=== PATIENT | female | born 1980 | race Caucasian/White ===

== ENCOUNTER 2016-11-19 22:30 | Emergency (ER) | payer MEDICAID ==
[2016-11-19 23:11] VITALS: BP 111/83
[2016-11-19] MEDS ORDERED: Ibuprofen 600 MG Tab PO ONE (23:19)
--- NOTE | 2016-11-19 23:54 | EDM.PDOC ---
ED HPI GENERAL MEDICAL PROBLEM - General Chief Complaint: Upper Extremity Injury/Pain Stated Complaint: INJURED L WRIST Time Seen by Provider: 11/19/16 23:10 Source of Information: Reports: Patient, Family History Limitations: Reports: No Limitations - History of Present Illness INITIAL COMMENTS - FREE TEXT/NARRATIVE: 36 y.o.w.f came to the ed after she fell at her left hand, complaining or left wrist pain, no other acute medical issues at this time. Onset: Today Onset Date: 11/19/16 Onset Time: 16:00 Duration: Hour(s): Location: Reports: Upper Extremity, Left Quality: Reports: Burning, Dull Severity: Mild Improves with: Reports: Cold Therapy, Immobilization Worsens with: Reports: Movement Associated Symptoms: Reports: No Other Symptoms Right Wrist Pain Score (Numeric/FACES): 7 - Related Data Allergies Allergy/AdvReac Type Severity Reaction Status Date / Time Penicillins Allergy Difficulty Verified 11/19/16 23:05 Breathing Home Meds: Home Meds ALPRAZolam [Alprazolam] 0.5 mg PO DAILY PRN 02/09/16 [History] DULoxetine HCl [Cymbalta] 120 mg PO DAILY 02/09/16 [History] Sucralfate [Sucralfate] 1 gm PO QID 04/02/16 [History] Pantoprazole [Protonix] 40 mg PO BIDAC #100 tab.cr 05/01/16 [Rx] Amitriptyline [Elavil] 25 mg PO BEDTIME #24 tab 06/05/16 [Rx] Ondansetron [Zofran ODT] 4 mg PO Q6H PRN #20 tab.dis 06/05/16 [Rx] Cyanocobalamin (Vitamin B12) [Vitamin B12] 1,000 mcg PO DAILY 06/09/16 [History] Ferrous Sulfate [Iron] 60 mg PO DAILY 06/09/16 [History] Past Medical History - Past Health History Medical/Surgical History: Denies Medical/Surgical History 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 Psychiatric History: Reports: Anxiety Hematologic History: Reports: B12 Deficiency, Iron Deficiency - Past Surgical History HEENT Surgical History: Reports: Adenoidectomy, Tonsillectomy Other HEENT Surgeries/Procedures: 1995 GI Surgical History: Reports: Appendectomy, Bariatric Procedure, Cholecystectomy Female Surgical History: Reports: Hysterectomy, Oophorectomy, Salpingo- Oophorectomy Oncologic Surgical History: Reports: Other (See Below) Social & Family History - Family History Family Medical History: Noncontributory - Tobacco Use Smoking Status *Q: Current Every Day Smoker Years of Tobacco use: 20 Packs/Tins Daily: 1 Second Hand Smoke Exposure: No - Caffeine Use Caffeine Use: Reports: Coffee - Alcohol Use Days Per Week of Alcohol Use: 0 - Recreational Drug Use Recreational Drug Use: No Drug Use in Last 12 Months: Yes Review of Systems - Review of Systems Review Of Systems: See Below Constitutional: Reports: No Symptoms Eyes: Reports: No Symptoms Ears: Reports: No Symptoms Nose: Reports: No Symptoms Mouth/Throat: Reports: No Symptoms Respiratory: Reports: No Symptoms Cardiovascular: Reports: No Symptoms GI/Abdominal: Reports: No Symptoms Genitourinary: Reports: No Symptoms Musculoskeletal: Reports: No Symptoms Skin: Reports: No Symptoms Neurological: Reports: No Symptoms Psychiatric: Reports: No Symptoms ED EXAM, GENERAL - Physical Exam Exam: See Below Exam Limited By: No Limitations General Appearance: Alert, WD/WN, No Apparent Distress Eye Exam: Bilateral Eye: Normal Inspection Ears: Normal External Exam Ear Exam: Bilateral Ear: Auricle Normal Nose: Normal Inspection, Normal Mucosa Throat/Mouth: Normal Inspection, Normal Lips Head: Atraumatic, Normocephalic Neck: Normal Inspection, Supple, Non-Tender, Full Range of Motion Respiratory/Chest: No Respiratory Distress, Lungs Clear, Normal Breath Sounds Cardiovascular: Normal Peripheral Pulses, Regular Rate, Rhythm, No Edema, No Gallop Peripheral Pulses: 1+: Femoral (L), Femoral (R) GI/Abdominal: Normal Bowel Sounds, Soft, Non-Tender (Female) Exam: Deferred Rectal (Female) Exam: Deferred Back Exam: Normal Inspection, Full Range of Motion Extremities: Other (left wrist tenderness, neg snuff box sign.) Neurological: Alert, Oriented, CN II-XII Intact, Normal Cognition, Normal Gait Psychiatric: Normal Affect, Normal Mood Skin Exam: Warm, Dry, Intact, Normal Color Lymphatic: No Adenopathy Course - Vital Signs Text/Narrative:: 36 y.o.w.f came to the ed after she fell at her left hand, complaining or left wrist pain, no other acute medical issues at this time. PE: left wrist discomfort, FROM Imaging: Left wrist neg Impression: Left wist sprain. Tx: Motrin, Velcro splint Reexam: improved Plan: D/C home with instructions. Last Recorded V/S: Last Vital Signs Temp 36.7 C 11/19/16 23:10 Pulse 88 11/19/16 23:10 Resp 16 11/19/16 23:10 BP 111/83 11/19/16 23:10 Pulse Ox 99 11/19/16 23:10 - Orders/Labs/Meds Orders: Active Orders 24 hr Category Date Time Status Cooling Warming Measures [RC] ASDIRECTED Care 11/19/16 23:21 Active Wrist Comp Min 3V Lt [CR] Stat Exams 11/19/16 23:19 Taken Ice Bag [Ice Therapy] [OM.PC] Routine Oth 11/19/16 23:21 Ordered Meds: Medications Discontinued Medications Generic Name Dose Route Start Last Admin Trade Name Freq PRN Reason Stop Dose Admin Ibuprofen 600 mg 11/19/16 23:19 11/19/16 23:37 Motrin PO 11/19/16 23:20 600 mg ONETIME ONE Administration Departure - Departure Time of Disposition: 23:54 Disposition: Home, Self-Care 01 Condition: Good Clinical Impression: Left wrist sprain Qualifiers: Encounter type: initial encounter Qualified Code(s): S63.502A - Unspecified sprain of left wrist, initial encounter - Discharge Information Instructions: Wrist Pain Referrals: PCP,Not In Area [Primary Care Provider] - Forms: ED Department Discharge Additional Instructions: Please apply ice to the affected area, please take motrin for pain, please wear Velcro splint fopr comfort. Please f/u please come back to the ed if your symptoms get worse acutely. - My Orders Last 24 Hours: My Active Orders 11/19/16 23:19 Wrist Comp Min 3V Lt [CR] Stat 11/19/16 23:21 Cooling Warming Measures [RC] ASDIRECTED Ice Bag [Ice Therapy] [OM.PC] Routine - Assessment/Plan Last 24 Hours: My Active Orders 11/19/16 23:19 Wrist Comp Min 3V Lt [CR] Stat 11/19/16 23:21 Cooling Warming Measures [RC] ASDIRECTED Ice Bag [Ice Therapy] [OM.PC] Routine
--- NOTE | 2016-11-21 08:56 | CR ---
INDICATION: Fell on stairs. LEFT WRIST: Three views of the left wrist revealed no evidence of an acute fracture, dislocation, or other significant bone or joint abnormality. [facility]
== END 2016-11-20 | disposition home or self-care (01) ==
LOC: FB.ED 22:30
DX: S63.502A Unspecified sprain of left wrist, initial encounter (principal); F41.9 Anxiety disorder, unspecified; F17.210 Nicotine dependence, cigarettes, uncomplicated; Z88.0 Allergy status to penicillin; Z79.899 Other long term (current) drug therapy; W19.XXXA Unspecified fall, initial encounter
CPT/HCPCS: 73110; 99283; A9270

== ENCOUNTER 2016-12-10 16:26 | Emergency (ER) | payer MEDICAID ==
[2016-12-10] MEDS ORDERED: Ketorolac 60 MG/2 ML SDV IM ONE (17:05)
[2016-12-10] MEDS ORDERED: hydrOXYzine HCl 50 MG/ML SDV IM ONE (17:06)
[2016-12-10] MEDS ORDERED: Sodium Chloride 0.9% 10 ML Syringe FLUSH PRN (17:22)
[2016-12-10] MEDS ORDERED: Iopamidol 755 Mg/ML 100 ML Bottle IV SCH (17:30)
[2016-12-10 18:32] VITALS: BP 109/69
--- NOTE | 2016-12-11 03:13 | ER ---
DATE SEEN: 12/10/2016 CHIEF COMPLAINT: Abdominal pain. HISTORY OF PRESENT ILLNESS: This is a 36-year-old female from [place], complaining of pain in the right upper quadrant for 3 days. The pain is sharp, it radiates to the back. Nothing seems to improve it. Food makes it worse. It is a dull pain at times. REVIEW OF SYSTEMS: Mild nausea. Denies any diarrhea or vomiting. No fever or chest pain. PAST MEDICAL HISTORY: Gastric bypass, status post cholecystectomy, appendectomy. ALLERGIES: Penicillins. MEDICATIONS: Reviewed. PHYSICAL EXAMINATION: GENERAL: She is well hydrated. VITAL SIGNS: Pulse 112, temperature 97.2, and blood pressure is normal. ENT: Negative. NECK: Supple. CARDIOVASCULAR: Normal. ABDOMEN: Soft, with tenderness right upper quadrant and also in the right costovertebral angle area. LABORATORY DATA: Sodium was 134, chloride 98, electrolytes and liver function tests were negative. Amylase was 49. UA was unremarkable. CT abdomen was negative. IMPRESSION: Abdominal pain of uncertain etiology. PLAN: Symptomatic treatment, ketorolac and Vistaril. The patient was discharged to see her physician next week. TIME SEEN: 1730 hours. /[id number] GEOFF/SUSANNA
== END 2016-12-10 18:31 | disposition home or self-care (01) ==
LOC: FB.ED 16:26
DX: R10.11 Right upper quadrant pain (principal); Z88.0 Allergy status to penicillin; Z90.49 Acquired absence of other specified parts of digestive tract; Z98.890 Other specified postprocedural states
CPT/HCPCS: 36415; 74177; 80053; 81001; 82150; 85025; 96372; 99284; J1885; J3410; J7050; Q9967

== ENCOUNTER 2016-12-11 04:55 | Emergency (ER) | payer MEDICAID ==
[2016-12-11] MEDS ORDERED: HYDROmorphone 2 MG/ML SDV IM ONE (05:22)
[2016-12-11 05:23] VITALS: BP 111/78
--- NOTE | 2016-12-12 09:25 | ER ---
DATE SEEN: 12/11/2016 REASON FOR VISIT: Right upper quadrant abdominal pain. HISTORY OF PRESENT ILLNESS: A 36-year-old female with pain in the right upper quadrant and epigastrium. She was here earlier today because of the same reason. Please see my note from 12/10/2016. She returns at 5 in the morning on 12/11/2016. Pain has been worsened and radiates to towards back, but no nausea or vomiting, no constipation. REVIEW OF SYSTEMS: No chest pain, fever, or chills. ALLERGIES: Penicillin. PHYSICAL EXAMINATION: VITAL SIGNS: Afebrile, blood pressure is normal, pulse 80. ABDOMEN: Nondistended. There is tenderness in the epigastrium and right upper quadrant. MENTAL STATUS: Anxious. LABORATORY DATA: None. IMPRESSION: Abdominal pain of undetermined etiology. PLAN: Dilaudid 2 mg IM. I advised her to see her PCP later today or if symptoms get worse to drive up to the ER in [place]. TIME SEEN: 0530 hours. /[id number] GEOFF/SUSANNA
== END 2016-12-11 05:45 | disposition home or self-care (01) ==
LOC: FB.ED 04:55
DX: R10.11 Right upper quadrant pain (principal); Z88.0 Allergy status to penicillin
CPT/HCPCS: 96372; 99284; J1170

== ENCOUNTER 2017-02-17 21:04 | Emergency (ER) | payer MEDICAID ==
[2017-02-17] MEDS ORDERED: Ketorolac 60 MG/2 ML SDV IM ONE (21:23)
--- NOTE | 2017-02-17 22:07 | EDM.PDOC ---
ED HPI GENERAL MEDICAL PROBLEM - General Chief Complaint: Back Pain or Injury Stated Complaint: LEFT SIDE BACK PAIN Time Seen by Provider: 02/17/17 21:06 Source of Information: Reports: Patient, Family History Limitations: Reports: No Limitations - History of Present Illness INITIAL COMMENTS - FREE TEXT/NARRATIVE: 36 years old w f came to the ed due to pain at her left flank for 3 days, starting gradually, No trauma, pain is radiating to her left groin. Pt denied a h/o kidneystone. No N/V/D no trauma. No other acute medical issues. 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 L flank region Pain Score (Numeric/FACES): 8 - Related Data Allergies Allergy/AdvReac Type Severity Reaction Status Date / Time Penicillins Allergy Difficulty Verified 12/11/16 05:20 Breathing Home Meds: Home Meds DULoxetine HCl [Cymbalta] 120 mg PO DAILY 02/09/16 [History] Sucralfate [Sucralfate] 1 gm PO QID 04/02/16 [History] Amitriptyline [Elavil] 25 mg PO BEDTIME #24 tab 06/05/16 [Rx] Past Medical History - Past Health History Medical/Surgical History: Denies 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, Psychiatric History: Reports: Anxiety Hematologic History: Reports: B12 Deficiency, Iron Deficiency - Past Surgical History HEENT Surgical History: Reports: Adenoidectomy, Tonsillectomy Other HEENT Surgeries/Procedures: 1995 GI Surgical History: Reports: Appendectomy, Bariatric Procedure, Cholecystectomy Female Surgical History: Reports: Hysterectomy, Oophorectomy, Salpingo- Oophorectomy Oncologic Surgical History: Reports: Other (See Below) Social & Family History - Family History Family Medical History: Noncontributory - Tobacco Use Smoking Status *Q: Current Every Day Smoker Years of Tobacco use: 20 Packs/Tins Daily: 1 Second Hand Smoke Exposure: No - Caffeine Use Caffeine Use: Reports: Coffee, Soda - Alcohol Use Days Per Week of Alcohol Use: 0 - Recreational Drug Use Recreational Drug Use: No Drug Use in Last 12 Months: Yes ED ROS GENERAL - Review of Systems Review Of Systems: See Below Constitutional: Reports: No Symptoms HEENT: Reports: No Symptoms Respiratory: Reports: No Symptoms Cardiovascular: Reports: No Symptoms Endocrine: Reports: No Symptoms GI/Abdominal: Reports: Abdominal Pain : Reports: No Symptoms Musculoskeletal: Reports: No Symptoms Skin: Reports: No Symptoms Neurological: Reports: No Symptoms Psychiatric: Reports: No Symptoms Hematologic/Lymphatic: Reports: No Symptoms Immunologic: Reports: No Symptoms ED EXAM,LOWER BACK PAIN/INJURY - Physical Exam Exam: See Below Exam Limited By: No Limitations General Appearance: Alert, WD/WN, Mild Distress Eye Exam: Bilateral Eye: Normal Inspection Ears: Normal External Exam Nose: Normal Inspection Throat/Mouth: Normal Inspection Head: Atraumatic, Normocephalic Neck: Normal Inspection, Supple, Non-Tender Respiratory/Chest: No Respiratory Distress, Lungs Clear Cardiovascular: Normal Peripheral Pulses, Regular Rate, Rhythm GI/Abdominal: Tender (left flank) (Female) Exam: Deferred Rectal (Female) Exam: Deferred Back Exam: Normal Inspection Extremities: Normal Inspection, Normal Range of Motion Neurological: Alert, Normal Mood/Affect, Normal Dorsiflexion, CN II-XII Intact Psychiatric: Normal Affect, Normal Mood Skin Exam: Warm, Dry, Intact Lymphatic: No Adenopathy Course - Vital Signs Text/Narrative:: 36 years old w f came to the ed due to pain at her left flank for 3 days, starting gradually, No trauma, pain is radiating to her left groin. Pt denied a h/o kidneystone. No N/V/D no trauma. No other acute medical issues. PE: Left flank pain Labs: UA Micr. Hematuria Na 133. K. 3.7 CBC was WNL Imaging: No urolithiasis. no hydro, focal gastritis, mesenteric lymphnodes ( nonspecific) Impression: Back pain Tx: Toradol, Vidodin Reexam; Improved Plan: D/C with instructions Last Recorded V/S: Last Vital Signs Temp 36.7 C 02/17/17 21:06 Pulse 91 02/17/17 21:06 Resp 18 02/17/17 23:00 BP 113/75 02/17/17 23:00 Pulse Ox 100 02/17/17 23:00 - Orders/Labs/Meds Orders: Active Orders 24 hr Category Date Time Status Abdomen Pelvis wo Cont [CT] Stat Exams 02/17/17 21:23 Taken Labs: Laboratory Tests 02/17/17 02/17/17 02/17/17 Range/Units 21:23 21:35 21:35 WBC 9.1 (4.5-12.0) X10-3/uL RBC 4.17 (3.23-5.20) x10(6)uL Hgb 12.9 (11.5-15.5) g/dL Hct 37.3 (30.0-51.3) % MCV 89.5 (80-96) fL MCH 30.8 (27.7-33.6) pg MCHC 34.5 (32.2-35.4) g/dL RDW 12.0 (11.5-15.5) % Plt Count 277 (125-369) X10(3)uL MPV 8.7 (7.4-10.4) fL Neut % (Auto) 57.8 (46-82) % Lymph % (Auto) 32.3 (13-37) % [place] % (Auto) 6.8 (4-12) % Eos % (Auto) 3 (1.0-5.0) % Baso % (Auto) 0 (0-2) % Neut # (Auto) 5.4 (1.6-8.3) # Lymph # (Auto) 2.9 (0.6-5.0) # [place] # (Auto) 0.6 (0.0-1.3) # Eos # (Auto) 0.2 (0.0-0.8) # Baso # (Auto) 0.0 (0.0-0.2) # Sodium 133 L (135-145) mmol/L Potassium 4.5 (3.5-5.3) mmol/L Chloride 97 L (100-110) mmol/L Carbon Dioxide 29 (23-29) mmol/L BUN 8 (5-20) mg/dL Creatinine 0.6 (0.6-1.3) mg/dL Est Cr Clr Drug Dosing 103.50 mL/min Estimated GFR (MDRD) > 60 (>60) BUN/Creatinine Ratio 13.3 (9-20) Glucose 96 (80-116) mg/dL Calcium 8.9 (8.6-10.2) mg/dL Urine Color Yellow (YELLOW) Urine Appearance Clear (CLEAR) Urine pH 7.0 H (5.0-6.5) Ur Specific [place] 1.005 L (1.010-1.025) Urine Protein Negative (NEGATIVE) mg/dL Urine Glucose (UA) Normal (NEGATIVE) mg/dL Urine Ketones Negative (NEGATIVE) mg/dL Urine Occult Blood Moderate H (NEGATIVE) Urine Nitrite Negative (NEGATIVE) Urine Bilirubin Negative (NEGATIVE) Urine Urobilinogen Normal (NEGATIVE) mg/dL Ur Leukocyte Esterase Negative (NEGATIVE) Urine RBC 0-5 (0) Urine WBC 0-5 (0) Ur Squamous Epith Cells Few H (NS,R,O) Urine Bacteria Few H (NS) Meds: Medications Discontinued Medications Generic Name Dose Route Start Last Admin Trade Name Freq PRN Reason Stop Dose Admin Hydrocodone Bitart/Acetaminophen 1 tab 02/17/17 22:48 02/17/17 22:56 [place] 325-5 Mg PO 02/17/17 22:49 1 tab ONETIME ONE Administration Ketorolac Tromethamine 60 mg 02/17/17 21:23 02/17/17 21:30 Toradol IM 02/17/17 21:24 60 mg ONETIME ONE Administration Departure - Departure Time of Disposition: 23:14 Disposition: Home, Self-Care 01 Condition: Good Clinical Impression: Back pain Qualifiers: Back pain location: low back pain Chronicity: unspecified Back pain laterality : left Sciatica presence: without sciatica Qualified Code(s): M54.5 - Low back pain - Discharge Information Instructions: Back Pain, Adult, [id number] Referrals: PCP,Not In Area [Primary Care Provider] - Forms: ED Department Discharge Additional Instructions: Please take motrin for mod pain and vicodin for severe pain. Please f/u. please come back if your symptoms get worse acutely - My Orders Last 24 Hours: My Active Orders 02/17/17 21:23 Abdomen Pelvis wo Cont [CT] Stat - Assessment/Plan Last 24 Hours: My Active Orders 02/17/17 21:23 Abdomen Pelvis wo Cont [CT] Stat
[2017-02-17] MEDS ORDERED: Acetaminophen/HYDROcodone 325-5 MG Tab PO ONE ×2 (22:48→23:17)
[2017-02-17 23:12] VITALS: BP 113/75
== END 2017-02-17 23:21 | disposition home or self-care (01) ==
LOC: FB.ED 21:04
DX: M54.5 Low back pain (principal); F17.210 Nicotine dependence, cigarettes, uncomplicated; F41.9 Anxiety disorder, unspecified; Z90.710 Acquired absence of both cervix and uterus; Z88.0 Allergy status to penicillin; Z79.899 Other long term (current) drug therapy; Z90.49 Acquired absence of other specified parts of digestive tract; Z90.89 Acquired absence of other organs
CPT/HCPCS: 36415; 74176; 80048; 81001; 85025; 96372; 99284; A9270; J1885

== ENCOUNTER 2017-03-11 13:39 | Emergency (ER) | payer MEDICAID ==
[2017-03-11] MEDS ORDERED: Ondansetron 4 MG/2 ML SDV IVPUSH ONE (14:51)
[2017-03-11] MEDS ORDERED: HYDROmorphone 2 MG/ML SDV IVPUSH ONE (14:51)
[2017-03-11] MEDS ORDERED: Sodium Chloride 0.9% 1,000 ML IV SCH (15:00)
[2017-03-11] MEDS ORDERED: Alum Hydroxide/Mag Hydroxide 15 ML, Lidocaine 2% 15 ML PO ONE ×2 (16:23)
[2017-03-11 17:27] VITALS: BP 120/68
--- NOTE | 2017-03-13 12:06 | ER ---
DATE SEEN: 03/11/2017 HISTORY OF PRESENT ILLNESS: The patient complains of severe abdominal pain. She is status post gastric bypass. She has been seen in the emergency room multiple times for abdominal pain. No etiology of the pain has been discovered. She has significant consequent weight loss with gastric bypass, but gained 75 pounds of it back. Complains of right-sided flank pain also. In 2016, she had a CAT scan of the abdomen that revealed an ulcer on the inferior aspect of the proximal Monroe-en-Y limb. She has had endoscopy on one occasion. As stated, "there is a little ulcer at that site." Previous cholecystectomy. She had been seen and followed by Dr. Olmos. Other previous surgery; T and A, appendectomy, Monroe-en-Y, candy-cane limb reconstruction 01/11/2016, MIGUEL-BSO for endometriosis at young age. The patient continues to smoke. Chronic depression, GERD, anxiety disorder, migraines, and nicotine dependence. FAMILY HISTORY: Myocardial infarction, fibromyalgia, autism, stroke, type 2 diabetes, and endometriosis. SOCIAL HISTORY: . Smoked, I believe she is no longer smoking. REVIEW OF SYSTEMS: HEENT: Denies compromised vision, sinusitis, sore throat, or cough. LUNGS: No tachypnea history. No shortness of breath. No dyspnea on exertion. CARDIAC: No chest pain. No irregularity of heartbeat. ABDOMEN: Nausea and abdominal pain without diarrhea. No back pain, arm pain, or jaw pain. No pancreatitis. She has previous documented gastric outlet stenosis and previous documented ulcer of her anastomosis line per Dr. Olmos. EXTREMITIES: Without edema. EMERGENCY DEPARTMENT COURSE: Etiology of the patient's pain is indeterminate. She was given 1 mg of Dilaudid IV. CAT scan was performed and no obstruction. The radiology report shows bypass changes, no violation of small or large bowel. Appendix is surgically absent. Multiple reactive mesenteric lymph nodes right lower quadrant, ill-defined micro nodules in the lung bases, multiple peripancreatic reactive lymph nodes, jack hepatis nodes. Gallbladder and bile duct are normal. LABORATORY FINDINGS: White count 6,200, PMNs 44, lymphocytes 46, monos 6, hemoglobin 12.9, and platelets 216,000. Normal complete metabolic panel. Urinalysis is normal. Toxicology is negative. ASSESSMENT: Etiology for the patient's pain is indeterminate, but perhaps has to do with the psyche and dynamics of the patient's gastric bypass and intermittent stress/tension, tethering of the vascular structures causing pain and ischemic changes; however, was not noted on the CT findings. 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 PLAN: No therapy. Reassured the patient. No pain medicine given to the patient. The patient dismissed to follow up with her doctor. My assumption that she may have a non-painful recurrence of ulcers at the anastomosis line and painful mesenteric adenitis. Gastroenterology may need to repeat endoscopy. In May, Franc Jamesgo, felt the intractable pain was not from the ulcer, so the etiology of the patient's pain is still indeterminate. /[id number] DALY/SUSANNA
== END 2017-03-11 16:30 | disposition home or self-care (01) ==
LOC: FB.ED 13:39
DX: I88.0 Nonspecific mesenteric lymphadenitis (principal); Z98.84 Bariatric surgery status; Z90.710 Acquired absence of both cervix and uterus; F17.210 Nicotine dependence, cigarettes, uncomplicated
CPT/HCPCS: 36415; 74176; 80053; 81001; 85025; 96361; 96374; 96375; 99284; A9270; J1170; J2405; J7040

== ENCOUNTER 2017-03-16 19:31 | Emergency (ER) | payer MEDICAID ==
[2017-03-16 20:13] VITALS: BP 99/73
[2017-03-16] MEDS ORDERED: Acetaminophen/HYDROcodone 325-10 MG Tab PO ONE (21:06)
--- NOTE | 2017-03-16 21:21 | EDM.PDOC ---
ED HPI GENERAL MEDICAL PROBLEM - General Chief Complaint: Lower Extremity Injury/Pain Stated Complaint: INJURED RT FT Time Seen by Provider: 03/16/17 20:35 Source of Information: Reports: Patient, Family History Limitations: Reports: No Limitations - History of Present Illness INITIAL COMMENTS - FREE TEXT/NARRATIVE: Patient is a 36 year old woman who tripped over a toy at her house at 14:30 this afternoon and she twisted and fell on her right foot. She has a bruise and pain on the outside of her foot over the 4th and 5th metatarsals. It hurts to walk on it and she wanted it x-rayed to make sure it is not broken. Onset: Today Onset Date: 03/16/17 Onset Time: 14:30 Duration: Hour(s): (5), Getting Worse Location: Reports: Lower Extremity, Right Quality: Reports: Ache, Throbbing Improves with: Reports: Immobilization Worsens with: Reports: Movement Context: Reports: Trauma Associated Symptoms: Reports: No Other Symptoms Treatments TRAVEL COTA: Reports: Acetaminophen, NSAIDS Right Feet Pain Score (Numeric/FACES): 8 - Related Data Allergies Allergy/AdvReac Type Severity Reaction Status Date / Time Penicillins Allergy Severe Difficulty Verified 03/16/17 20:06 Breathing Home Meds: Home Meds DULoxetine HCl [Cymbalta] 120 mg PO DAILY 02/09/16 [History] Sucralfate [Sucralfate] 1 gm PO QID 04/02/16 [History] Amitriptyline [Elavil] 25 mg PO BEDTIME #24 tab 06/05/16 [Rx] Past Medical History - Past Health History Medical/Surgical History: Denies Medical/Surgical History Gastrointestinal History: Reports: Cholelithiasis Genitourinary History: Reports: UTI, Recurrent 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, Musculoskeletal History: Reports: Fracture Other Musculoskeletal History: fx R wrist, fx L foot Psychiatric History: Reports: Anxiety Endocrine/Metabolic History: Reports: Obesity/BMI 30+ Hematologic History: Reports: B12 Deficiency, Iron Deficiency - Infectious Disease History Infectious Disease History: Reports: Chicken Pox - Past Surgical History HEENT Surgical History: Reports: Adenoidectomy, Tonsillectomy Other HEENT Surgeries/Procedures: 1995 GI Surgical History: Reports: Appendectomy, Bariatric Procedure, Cholecystectomy Female Surgical History: Reports: Hysterectomy, Oophorectomy, Salpingo- Oophorectomy Oncologic Surgical History: Reports: Other (See Below) Social & Family History - Family History Family Medical History: Noncontributory - Tobacco Use Smoking Status *Q: Current Every Day Smoker Years of Tobacco use: 20 Packs/Tins Daily: 1 Second Hand Smoke Exposure: No - Caffeine Use Caffeine Use: Reports: Coffee - Alcohol Use Days Per Week of Alcohol Use: 0 - Recreational Drug Use Recreational Drug Use: No Drug Use in Last 12 Months: Yes Review of Systems - Review of Systems Review Of Systems: ROS reveals no pertinent complaints other than HPI. ED EXAM, GENERAL - Physical Exam Exam: See Below Exam Limited By: No Limitations General Appearance: Alert, WD/WN, No Apparent Distress Head: Atraumatic, Normocephalic Neck: Normal Inspection, Supple, Non-Tender, Full Range of Motion Respiratory/Chest: No Respiratory Distress Cardiovascular: Normal Peripheral Pulses, Regular Rate, Rhythm, No Edema, No Gallop, No JVD, No Murmur, No Rub Peripheral Pulses: 4+: Posterior Tibial (L), Posterior Tibial (R), Dorsalis Pedis (L), Dorsalis Pedis (R) GI/Abdominal: Normal Bowel Sounds, Soft, Non-Tender, No Organomegaly, No Distention, No Abnormal Bruit, No Mass Extremities: Limited Range of Motion (Right foot due to pain.), Other (Bruise and contusion with pain on palpation on the right foot.) Neurological: Alert, Oriented, CN II-XII Intact, Normal Cognition, Normal Gait, Normal Reflexes, No Motor/Sensory Deficits Psychiatric: Normal Affect, Normal Mood Skin Exam: Warm, Dry, Intact, Normal Color, No Rash Lymphatic: No Adenopathy Course - Vital Signs Text/Narrative:: Uneventful ED course. She had a negative foot x-ray for fracture by my initial reading. She was placed in a hard cast shoe and was given crutches. She will take Ibuprofen 800 mg and Tylenol 500 mg together every 6 hours, she will rest and elevate the right foot and ice it 15 minutes tid. She will see her PCP in 3 days if not improving or if getting more painful. Last Recorded V/S: Last Vital Signs Temp 36.9 C 03/16/17 20:07 Pulse 96 03/16/17 20:07 Resp 14 03/16/17 20:07 BP 99/73 10/20/17 20:07 Pulse Ox 100 03/16/17 20:07 - Orders/Labs/Meds Orders: Active Orders 24 hr Category Date Time Status Foot Comp Min 3V Rt [CR] Stat Exams 03/16/17 20:25 Taken Meds: Medications Discontinued Medications Generic Name Dose Route Start Last Admin Trade Name Ricarda PRN Reason Stop Dose Admin Hydrocodone Bitart/Acetaminophen 1 tab 03/16/17 21:06 03/16/17 21:11 [place] 325-10 Mg PO 03/16/17 21:07 1 tab ONETIME ONE Administration Departure - Departure Time of Disposition: 22:21 Disposition: Home, Self-Care 01 Preliminary Cause of *Q: Sepsis & Multi System Organ Failure Clinical Impression: Contusion of foot, right - Discharge Information Instructions: Crutch Use, [id number], Foot Sprain, Contusion, [id number] Referrals: PCP,Not In Area [Primary Care Provider] - Forms: ED Department Discharge Care Plan Goals: see on Sunday - My Orders Last 24 Hours: My Active Orders 03/16/17 20:25 Foot Comp Min 3V Rt [CR] Stat - Assessment/Plan Last 24 Hours: My Active Orders 03/16/17 20:25 Foot Comp Min 3V Rt [CR] Stat
--- NOTE | 2017-03-19 13:42 | CR ---
INDICATION: Right foot pain laterally, twisted her foot today. RIGHT FOOT: Three views of the right foot revealed no evidence of a fracture, dislocation, or other significant bone or joint abnormality. VIDYA
== END 2017-03-16 22:01 | disposition home or self-care (01) ==
LOC: FB.ED 19:31
DX: S90.31XA Contusion of right foot, initial encounter (principal); Z88.0 Allergy status to penicillin; F17.210 Nicotine dependence, cigarettes, uncomplicated; Z79.899 Other long term (current) drug therapy; W01.198A Fall on same level from slipping, tripping and stumbling with subsequent striking against other object, initial encounter
CPT/HCPCS: 73630; 99283; A9270

== ENCOUNTER 2017-04-06 17:28 | Emergency (ER) | payer MEDICAID ==
[2017-04-06] MEDS ORDERED: Sodium Chloride 0.9% 10 ML Syringe FLUSH PRN (18:23)
[2017-04-06] MEDS ORDERED: Ondansetron 4 MG/2 ML SDV IVPUSH ONE (18:29)
--- NOTE | 2017-04-06 18:29 | EDM.PDOC ---
ED HPI GENERAL MEDICAL PROBLEM - General Chief Complaint: Abdominal Pain Stated Complaint: STOMACH PAIN Time Seen by Provider: 04/06/17 18:15 Source of Information: Reports: Patient, Old Records History Limitations: Reports: No Limitations - History of Present Illness INITIAL COMMENTS - FREE TEXT/NARRATIVE: Charisse Paz returns to [facility] ED with ongoing issues with upper abdominal pain, nausea, and daily emesis of gastric appearing fluids. Pains are intermittent, do not radiate to the back or pelvis, and sometimes appear retrosternal. She has been seen within the past month for similar sxs, and diagnostic imaging has not confirmed a diagnosis. She has a referral pending to the [facility]ariat[facility] Clinic in [place], [place]. She has been compliant with meds including Carafate, but continues to smoke cigarettes. Upper abdominal pain Pain Score (Numeric/FACES): 8 - Related Data Allergies Allergy/AdvReac Type Severity Reaction Status Date / Time Penicillins Allergy Severe Difficulty Verified 04/06/17 18:07 Breathing Home Meds: Home Meds DULoxetine HCl [Cymbalta] 60 mg PO BID 02/09/16 [History] Sucralfate [Sucralfate] 1 gm PO QID 04/02/16 [History] ARIPiprazole [Abilify] 5 mg PO BEDTIME 04/06/17 [History] Cyanocobalamin (Vitamin B-12) [Vitamin B-12] 500 mcg PO DAILY 04/06/17 [History] Iron,Carbonyl/Vit C/Vit B12/Fa [Iron 100 Plus Tablet] 1 tab DAILY 04/06/17 [ History] Pantoprazole Sodium [Protonix] 40 mg PO DAILY 04/06/17 [History] Past Medical History - Past Health History Medical/Surgical History: Denies Medical/Surgical History HEENT History: Reports: None Gastrointestinal History: Reports: Cholelithiasis, GERD, Other (See Below) Other Gastrointestinal History: candy cane rue syndrome Genitourinary History: Reports: UTI, Recurrent 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, Musculoskeletal History: Reports: Fracture Other Musculoskeletal History: fx R wrist, fx L foot Psychiatric History: Reports: Anxiety, Panic Attack Endocrine/Metabolic History: Reports: Obesity/BMI 30+ Hematologic History: Reports: B12 Deficiency, Iron Deficiency - Infectious Disease History Infectious Disease History: Reports: Chicken Pox, Shingles - Past Surgical History HEENT Surgical History: Reports: Adenoidectomy, Oral Surgery, Tonsillectomy Other HEENT Surgeries/Procedures: 1995 GI Surgical History: Reports: Appendectomy, Bariatric Procedure, Cholecystectomy , EGD Female Surgical History: Reports: Hysterectomy, Oophorectomy, Salpingo- Oophorectomy Musculoskeletal Surgical History: Reports: None Oncologic Surgical History: Reports: Other (See Below) Social & Family History - Family History Family Medical History: Noncontributory - Tobacco Use Smoking Status *Q: Current Every Day Smoker Years of Tobacco use: 20 Packs/Tins Daily: 1 Second Hand Smoke Exposure: No - Caffeine Use Caffeine Use: Reports: Coffee - Alcohol Use Days Per Week of Alcohol Use: 0 - Recreational Drug Use Recreational Drug Use: No Drug Use in Last 12 Months: Yes ED ROS GENERAL - Review of Systems Review Of Systems: See Below Constitutional: Reports: Malaise, Decreased Appetite HEENT: Reports: No Symptoms Respiratory: Reports: No Symptoms Cardiovascular: Reports: No Symptoms Endocrine: Reports: No Symptoms GI/Abdominal: Reports: Abdominal Pain, Decreased Appetite, Nausea, Vomiting : Reports: No Symptoms Musculoskeletal: Reports: No Symptoms Skin: Reports: No Symptoms Neurological: Reports: No Symptoms Psychiatric: Reports: No Symptoms Hematologic/Lymphatic: Reports: No Symptoms Immunologic: Reports: No Symptoms ED EXAM, GI/ABD - Physical Exam Exam: See Below Exam Limited By: No Limitations General Appearance: Alert, WD/WN, No Apparent Distress, Anxious Eyes: Bilateral: Normal Appearance Ears: Normal External Exam Nose: Normal Inspection Throat/Mouth: Normal Inspection, Normal Oropharynx Head: Normocephalic Neck: Normal Inspection, Supple, Non-Tender Respiratory/Chest: Lungs Clear, Normal Breath Sounds Cardiovascular: Regular Rate, Rhythm, No Murmur GI/Abdominal Exam: Normal Bowel Sounds, Soft, No Organomegaly, No Distention, No Mass, Guarding (epigastrium) Rectal (Female) Exam: Deferred Back Exam: Normal Inspection Extremities: Normal Inspection Neurological: Alert, Oriented, CN II-XII Intact, Normal Cognition, Normal Gait, No Motor/Sensory Deficits Psychiatric: Normal Affect, Normal Mood Skin Exam: Warm, Dry Lymphatic: No Adenopathy Course - Vital Signs Text/Narrative:: Following assession at the [facility] ED, an IV was started in the LUE and 1L of NS was administered over an hour. Zofran 8 mg IV was given push, and a Gi cocktail was administered without benefit. Subsequently, I administered a Tramadol 50 mg tab for GI pain. Lab work returned and baseline. Last Recorded V/S: Last Vital Signs Temp 36.7 C 04/06/17 17:53 Pulse 96 04/06/17 17:53 Resp 18 04/06/17 19:25 BP 116/85 04/06/17 19:25 Pulse Ox 96 04/06/17 19:25 - Orders/Labs/Meds Orders: Active Orders 24 hr Category Date Time Status Sodium Chloride 0.9% [Normal Saline] 1,000 ml Med 04/06/17 18:30 Active IV ASDIRECTED Sodium Chloride 0.9% [Saline Flush] Med 04/06/17 18:23 Active 10 ml FLUSH ASDIRECTED PRN Peripheral IV Insertion Adult [OM.PC] Routine Oth 04/06/17 18:23 Ordered Medication Orders Sodium Chloride (Normal Saline) 1,000 mls @ 999 mls/hr IV ASDIRECTED MARCOS Last Admin: 04/06/17 18:45 Dose: 999 mls/hr Sodium Chloride (Saline Flush) 10 ml FLUSH ASDIRECTED PRN PRN Reason: Keep Vein Open Last Admin: 04/06/17 18:42 Dose: 10 ml Labs: Laboratory Tests 04/06/17 04/06/17 Range/Units 18:46 18:46 WBC 6.2 (4.5-12.0) X10-3/uL RBC 3.92 (3.23-5.20) x10(6)uL Hgb 12.2 (11.5-15.5) g/dL Hct 34.9 (30.0-51.3) % MCV 88.9 (80-96) fL MCH 31.1 (27.7-33.6) pg MCHC 35.0 (32.2-35.4) g/dL RDW 12.4 (11.5-15.5) % Plt Count 251 (125-369) X10(3)uL MPV 8.5 (7.4-10.4) fL Neut % (Auto) 63.7 (46-82) % Lymph % (Auto) 25.6 (13-37) % Boone % (Auto) 8.4 (4-12) % Eos % (Auto) 2 (1.0-5.0) % Baso % (Auto) 0 (0-2) % Neut # (Auto) 4.0 (1.6-8.3) # Lymph # (Auto) 1.6 (0.6-5.0) # Boone # (Auto) 0.5 (0.0-1.3) # Eos # (Auto) 0.1 (0.0-0.8) # Baso # (Auto) 0.0 (0.0-0.2) # Sodium 132 L (135-145) mmol/L Potassium 3.9 (3.5-5.3) mmol/L Chloride 98 L (100-110) mmol/L Carbon Dioxide 28 (23-29) mmol/L BUN 9 (5-20) mg/dL Creatinine 0.5 L (0.6-1.3) mg/dL Est Cr Clr Drug Dosing 129.91 mL/min Estimated GFR (MDRD) > 60 (>60) BUN/Creatinine Ratio 18.0 (9-20) Glucose 101 (80-116) mg/dL Calcium 8.7 (8.6-10.2) mg/dL Amylase 41 (28-100) U/L Meds: Medications Generic Name Dose Route Start Last Admin Trade Name Freq PRN Reason Stop Dose Admin Sodium Chloride 1,000 mls @ 999 mls/hr 04/06/17 18:30 04/06/17 18:45 Normal Saline IV 999 mls/hr ASDIRECTED MARCOS Administration Sodium Chloride 10 ml 04/06/17 18:23 04/06/17 18:42 Saline Flush FLUSH 10 ml ASDIRECTED PRN Administration Keep Vein Open Discontinued Medications Generic Name Dose Route Start Last Admin Trade Name Freq PRN Reason Stop Dose Admin Al Hydroxide/Mg Hydroxide 15 0 ml 04/06/17 18:47 04/06/17 18:59 ml/ Lidocaine HCl 15 ml PO 04/06/17 18:48 15 ml ONETIME ONE Administration Ondansetron HCl 8 mg 04/06/17 18:29 04/06/17 18:59 Zofran IVPUSH 04/06/17 18:30 8 mg ONETIME ONE Administration Tramadol HCl 50 mg 04/06/17 19:19 04/06/17 19:23 Ultram PO 04/06/17 19:20 50 mg ONETIME ONE Administration Departure - Departure Time of Disposition: 19:40 Disposition: Home, Self-Care 01 Condition: Fair Clinical Impression: Epigastric abdominal pain - Discharge Information Referrals: Riley Mayer MD [Primary Care Provider] - Forms: ED Department Discharge - Problem List & Annotations (1) Epigastric abdominal pain SNOMED Code(s): 95376074 Code(s): R10.13 - EPIGASTRIC PAIN Status: Acute Current Visit: Yes Annotation/Comment:: Epigastric abdominal pain NOS. She will continue maintenance meds as directed. I dispensed Tramadol 50 mg tab q 6 hrs prn for pain. - Problem List Review Problem List Initiated/Reviewed/Updated: Yes - My Orders Last 24 Hours: My Active Orders 04/06/17 18:23 Sodium Chloride 0.9% [Saline Flush] 10 ml FLUSH ASDIRECTED PRN Peripheral IV Insertion Adult [OM.PC] Routine 04/06/17 18:30 Sodium Chloride 0.9% [Normal Saline] 1,000 ml IV ASDIRECTED - Assessment/Plan Last 24 Hours: My Active Orders 04/06/17 18:23 Sodium Chloride 0.9% [Saline Flush] 10 ml FLUSH ASDIRECTED PRN Peripheral IV Insertion Adult [OM.PC] Routine 04/06/17 18:30 Sodium Chloride 0.9% [Normal Saline] 1,000 ml IV ASDIRECTED Plan: Follow up with GI at the [facility] in [place], [place].
[2017-04-06] MEDS ORDERED: Sodium Chloride 0.9% 1,000 ML IV SCH (18:30)
[2017-04-06] MEDS ORDERED: Alum Hydroxide/Mag Hydroxide 15 ML, Lidocaine 2% 15 ML PO ONE ×2 (18:47)
[2017-04-06] MEDS ORDERED: traMADol 50 MG Tab PO ONE ×2 (19:19→19:38)
[2017-04-06 20:35] VITALS: BP 116/64
== END 2017-04-06 20:20 | disposition home or self-care (01) ==
LOC: FB.ED 17:28
DX: R10.13 Epigastric pain (principal); F17.210 Nicotine dependence, cigarettes, uncomplicated; Z88.0 Allergy status to penicillin; Z79.899 Other long term (current) drug therapy
CPT/HCPCS: 80048; 82150; 85025; 96361; 96374; 99283; A9270; J2405; J7040; J7050

== ENCOUNTER 2017-04-08 15:13 | Emergency (ER) | payer MEDICAID ==
[2017-04-08 15:51] VITALS: BP 111/75
[2017-04-08] MEDS ORDERED: Alum Hydroxide/Mag Hydroxide 30 ML, Lidocaine 2% 15 ML PO ONE ×4 (15:51→16:49)
[2017-04-08] MEDS ORDERED: Sodium Chloride 0.9% 1,000 ML IV ONE (16:47)
[2017-04-08] MEDS ORDERED: Ondansetron 4 MG/2 ML SDV IVPUSH ONE (16:48)
[2017-04-08] MEDS ORDERED: Morphine 4 MG/ML Syringe IVPUSH ONE (18:00)
[2017-04-08] MEDS ORDERED: Ketorolac 30 MG/ML SDV IVPUSH ONE (18:01)
[2017-04-08] MEDS ORDERED: Acetaminophen/HYDROcodone 325-5 MG Tab PO ONE (18:34)
--- NOTE | 2017-04-08 18:38 | EDM.PDOC ---
ED HPI GENERAL MEDICAL PROBLEM - General Chief Complaint: Abdominal Pain Stated Complaint: ABD PAIN Time Seen by Provider: 04/08/17 15:45 Source of Information: Reports: Patient History Limitations: Reports: No Limitations - History of Present Illness INITIAL COMMENTS - FREE TEXT/NARRATIVE: c/o epigastric pain pt with [id number] 01/10 with Eduardo Fan and [facility] in [place] last saw Dr Olmos 05/12 d/t insurance problem, saw Dr Kat 2d ago who referred her for EGD with Dr Olmos and pt is waiting to hear back re the apt has had 11 visits in past 2y to ED here for epigastric pain labs in past have been neg, neg 2d ago is on carafate QID, protonix and Tums was given [id number] 50 mg q6h when here in ED 2d ago now has had inc'd epigastric pain in past 24h, some N, no V still smoking here with Dr Kat gave her Zofran at her last visit given IVF, Zofran, Toradol, MS, GI cocktail x 2 here today and is feeling better pt requesting a pain pill for home, she plans to call Dr Kat in AM Epigastric Pain Score (Numeric/FACES): 10 - Related Data Allergies Allergy/AdvReac Type Severity Reaction Status Date / Time Penicillins Allergy Severe Difficulty Verified 04/08/17 15:31 Breathing Home Meds: Home Meds DULoxetine HCl [Cymbalta] 60 mg PO BID 02/09/16 [History] Sucralfate [Sucralfate] 1 gm PO QID 04/02/16 [History] ARIPiprazole [Abilify] 5 mg PO BEDTIME 04/06/17 [History] Cyanocobalamin (Vitamin B-12) [Vitamin B-12] 500 mcg PO DAILY 04/06/17 [History] Iron,Carbonyl/Vit C/Vit B12/Fa [Iron 100 Plus Tablet] 1 tab DAILY 04/06/17 [ History] Pantoprazole Sodium [Protonix] 40 mg PO DAILY 04/06/17 [History] traMADol [Ultram] 50 mg PO Q6HR PRN 04/08/17 [History] Past Medical History - Past Health History Medical/Surgical History: Denies Medical/Surgical History HEENT History: Reports: None Gastrointestinal History: Reports: Cholelithiasis, GERD, Other (See Below) Other Gastrointestinal History: candy cane rue syndrome Genitourinary History: Reports: UTI, Recurrent 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: 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, Musculoskeletal History: Reports: Fracture Other Musculoskeletal History: fx R wrist, fx L foot Psychiatric History: Reports: Anxiety, Panic Attack Endocrine/Metabolic History: Reports: Obesity/BMI 30+ Hematologic History: Reports: B12 Deficiency, Iron Deficiency - Infectious Disease History Infectious Disease History: Reports: Chicken Pox, Shingles - Past Surgical History HEENT Surgical History: Reports: Adenoidectomy, Oral Surgery, Tonsillectomy Other HEENT Surgeries/Procedures: 1995 GI Surgical History: Reports: Appendectomy, Bariatric Procedure, Cholecystectomy , EGD Female Surgical History: Reports: Hysterectomy, Oophorectomy, Salpingo- Oophorectomy Musculoskeletal Surgical History: Reports: None Oncologic Surgical History: Reports: Other (See Below) Social & Family History - Family History Family Medical History: Noncontributory - Tobacco Use Smoking Status *Q: Current Every Day Smoker Years of Tobacco use: 15 Packs/Tins Daily: 1 Second Hand Smoke Exposure: No - Caffeine Use Caffeine Use: Reports: Coffee, Soda - Alcohol Use Days Per Week of Alcohol Use: 0 - Recreational Drug Use Recreational Drug Use: No Drug Use in Last 12 Months: Yes ED ROS GENERAL - Review of Systems Review Of Systems: See Below Constitutional: Reports: No Symptoms HEENT: Reports: No Symptoms Respiratory: Reports: No Symptoms Cardiovascular: Reports: No Symptoms Endocrine: Reports: No Symptoms GI/Abdominal: Reports: Abdominal Pain, Nausea : Reports: No Symptoms Musculoskeletal: Reports: No Symptoms Skin: Reports: No Symptoms Neurological: Reports: No Symptoms Psychiatric: Reports: No Symptoms Hematologic/Lymphatic: Reports: No Symptoms Immunologic: Reports: No Symptoms ED EXAM, GI/ABD - Physical Exam Exam: See Below Exam Limited By: No Limitations General Appearance: Alert, WD/WN, Mild Distress Respiratory/Chest: No Respiratory Distress, Lungs Clear, Normal Breath Sounds Cardiovascular: Regular Rate, Rhythm, No Edema, No Murmur, No Rub GI/Abdominal Exam: Other (1+ epigastric tender that dec'd after meds, NT elsewhere, no guard/rebound) Extremities: Normal Inspection, Normal Range of Motion, Non-Tender, Normal Capillary Refill, No Pedal Edema Neurological: Alert, Oriented, CN II-XII Intact, Normal Cognition, Normal Gait, No Motor/Sensory Deficits Psychiatric: Normal Affect, Normal Mood Skin Exam: Warm, Dry, Intact, Normal Color, No Rash Lymphatic: No Adenopathy Course - Vital Signs Last Recorded V/S: Last Vital Signs Temp 36.9 C 04/08/17 15:20 Pulse 113 H 04/08/17 15:20 Resp 16 04/08/17 15:20 BP 111/75 04/08/17 15:20 Pulse Ox 98 04/08/17 15:20 - Orders/Labs/Meds Meds: Medications Discontinued Medications Generic Name Dose Route Start Last Admin Trade Name Freq PRN Reason Stop Dose Admin Al Hydroxide/Mg Hydroxide 30 0 ml 04/08/17 15:51 04/08/17 16:00 ml/ Lidocaine HCl 15 ml PO 04/08/17 15:52 15 ml ONETIME ONE Administration Al Hydroxide/Mg Hydroxide 30 0 ml 04/08/17 16:49 04/08/17 17:46 ml/ Lidocaine HCl 15 ml PO 04/08/17 16:50 15 ml ONETIME ONE Administration Sodium Chloride 1,000 mls @ 999 mls/hr 04/08/17 16:47 04/08/17 17:30 Normal Saline IV 04/08/17 17:47 999 mls/hr .BOLUS ONE Administration Ketorolac Tromethamine 30 mg 04/08/17 18:01 04/08/17 18:16 Toradol IVPUSH 04/08/17 18:02 30 mg ONETIME ONE Administration Morphine Sulfate 4 mg 04/08/17 18:00 04/08/17 18:17 Morphine IVPUSH 04/08/17 18:01 4 mg ONETIME ONE Administration Ondansetron HCl 4 mg 04/08/17 16:48 04/08/17 17:45 Zofran IVPUSH 04/08/17 16:49 4 mg ONETIME ONE Administration Departure - Departure Time of Disposition: 18:39 Disposition: Home, Self-Care 01 Condition: Good Clinical Impression: GERD (gastroesophageal reflux disease) - Discharge Information Instructions: Gastroesophageal Reflux Disease, Adult, Food Choices for Gastroesophageal Reflux Disease, Adult, [id number] Referrals: Riley Mayer MD [Primary Care Provider] - Additional Instructions: Continue current meds. Also take liquid antacids 30 cc 2 hours after meals and bedtime for the next week. May take hydrocodone with acetaminophen 5/325 mg tonight if needed. Check with Dr Kat in morning regarding ongoing treatment. Call your Physician or Return to Emergency Department if: * Your condition worsens in any way. * You develop fever greater than 100.4. * You have vomitting that does not stop with medications. * You have pain that is not controlled with medications.
== END 2017-04-08 18:53 | disposition home or self-care (01) ==
LOC: FB.ED 15:13
DX: K21.9 Gastro-esophageal reflux disease without esophagitis (principal)
CPT/HCPCS: 96361; 96374; 96375; 99284; A9270; J1885; J2270; J2405; J7040

== ENCOUNTER 2017-04-10 17:27 | Emergency (ER) | payer MEDICAID ==
[2017-04-10] MEDS ORDERED: Ondansetron 4 MG/2 ML SDV IVPUSH ONE (18:07)
[2017-04-10] MEDS ORDERED: Ketorolac 30 MG/ML SDV IVPUSH ONE (18:08)
[2017-04-10] MEDS ORDERED: Sodium Chloride 0.9% 10 ML Syringe FLUSH PRN (18:13)
--- NOTE | 2017-04-10 18:14 | EDM.PDOC ---
ED HPI GENERAL MEDICAL PROBLEM - General Chief Complaint: Abdominal Pain Stated Complaint: SEVERE ABD PAIN Time Seen by Provider: 04/10/17 17:45 Source of Information: Reports: Patient History Limitations: Reports: No Limitations - History of Present Illness INITIAL COMMENTS - FREE TEXT/NARRATIVE: c/o nausea, vomiting, abd pain x 1m in ED 2d ago and given IVF, Toradol, Esha BAHENA saw Dr Mayer yesterday who added AA 30 cc QID which is covered by her BC/BS insurance also on Protonix, sulcralfate and Zofran ODT prn Dr Mayer did not refill the tramadol, which he said he only does for cancer pts and terminally ill pts, he told her to come to ED if she is still having pain Dr Mayer called [facility] yesterday to try to move up her apt as she has not seen them in 11m Abdomen Pain Score (Numeric/FACES): 7 - Related Data Allergies Allergy/AdvReac Type Severity Reaction Status Date / Time Penicillins Allergy Severe Difficulty Verified 04/10/17 17:36 Breathing Home Meds: Home Meds DULoxetine HCl [Cymbalta] 60 mg PO BID 02/09/16 [History] Sucralfate [Sucralfate] 1 gm PO QID 04/02/16 [History] ARIPiprazole [Abilify] 5 mg PO BEDTIME 04/06/17 [History] Cyanocobalamin (Vitamin B-12) [Vitamin B-12] 500 mcg PO DAILY 04/06/17 [History] Iron,Carbonyl/Vit C/Vit B12/Fa [Iron 100 Plus Tablet] 1 tab DAILY 04/06/17 [ History] Pantoprazole Sodium [Protonix] 40 mg PO DAILY 04/06/17 [History] Past Medical History - Past Health History Medical/Surgical History: Denies Medical/Surgical History HEENT History: Reports: None Gastrointestinal History: Reports: Cholelithiasis, GERD, Other (See Below) Other Gastrointestinal History: candy cane rue syndrome Genitourinary History: Reports: UTI, 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: 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: 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, Musculoskeletal History: Reports: Fracture Other Musculoskeletal History: fx R wrist, fx L foot Psychiatric History: Reports: Anxiety, Panic Attack Endocrine/Metabolic History: Reports: Obesity/BMI 30+ Hematologic History: Reports: B12 Deficiency, Iron Deficiency - Infectious Disease History Infectious Disease History: Reports: Chicken Pox, Shingles - Past Surgical History HEENT Surgical History: Reports: Adenoidectomy, Oral Surgery, Tonsillectomy Other HEENT Surgeries/Procedures: 1995 GI Surgical History: Reports: Appendectomy, Bariatric Procedure, Cholecystectomy , EGD Female Surgical History: Reports: Hysterectomy, Oophorectomy, Salpingo- Oophorectomy Musculoskeletal Surgical History: Reports: None Oncologic Surgical History: Reports: Other (See Below) Social & Family History - Family History Family Medical History: Noncontributory - Tobacco Use Smoking Status *Q: Current Every Day Smoker Years of Tobacco use: 20 Packs/Tins Daily: 1 Second Hand Smoke Exposure: No - Caffeine Use Caffeine Use: Reports: Coffee, Soda - Alcohol Use Days Per Week of Alcohol Use: 0 - Recreational Drug Use Recreational Drug Use: No Drug Use in Last 12 Months: Yes ED ROS GENERAL - Review of Systems Review Of Systems: See Below Constitutional: Reports: No Symptoms HEENT: Reports: No Symptoms Respiratory: Reports: No Symptoms Cardiovascular: Reports: No Symptoms Endocrine: Reports: No Symptoms GI/Abdominal: Reports: Abdominal Pain, Nausea, Vomiting : Reports: No Symptoms Musculoskeletal: Reports: No Symptoms Skin: Reports: No Symptoms Neurological: Reports: No Symptoms Psychiatric: Reports: No Symptoms Hematologic/Lymphatic: Reports: No Symptoms Immunologic: Reports: No Symptoms ED EXAM, GI/ABD - Physical Exam Exam: See Below Exam Limited By: No Limitations General Appearance: Alert, WD/WN, Mild Distress Throat/Mouth: Normal Inspection, No Airway Compromise Head: Atraumatic, Normocephalic Neck: Normal Inspection, Supple, Non-Tender, Full Range of Motion Respiratory/Chest: No Respiratory Distress, Lungs Clear, Normal Breath Sounds Cardiovascular: Regular Rate, Rhythm, No Edema, Other (skin turgor wnl) GI/Abdominal Exam: Normal Bowel Sounds, Soft, No Distention, Other (1+ tender localized epigastrium) Extremities: Normal Inspection, Normal Range of Motion, Non-Tender Neurological: Alert, Oriented, CN II-XII Intact, Normal Cognition, No Motor/ Sensory Deficits Psychiatric: Normal Affect, Normal Mood Skin Exam: Warm, Dry, Intact, Normal Color, No Rash Lymphatic: No Adenopathy Course - Vital Signs Last Recorded V/S: Last Vital Signs Temp 36.8 C 04/10/17 17:37 Pulse 112 H 04/10/17 17:37 Resp 14 04/10/17 17:37 BP 114/67 04/10/17 17:37 Pulse Ox 100 04/10/17 17:37 - Orders/Labs/Meds Orders: Active Orders 24 hr Category Date Time Status Metoclopramide [Reglan] Med 04/10/17 18:58 Once 10 mg IVPUSH ONETIME ONE Sodium Chloride 0.9% [Normal Saline] 1,000 ml Med 04/10/17 18:15 Active IV ASDIRECTED Sodium Chloride 0.9% [Saline Flush] Med 04/10/17 18:13 Active 10 ml FLUSH ASDIRECTED PRN diphenhydrAMINE [Benadryl] Med 04/10/17 18:58 Once 50 mg IVPUSH ONETIME ONE Saline Lock Insert [OM.PC] Routine Oth 04/10/17 18:13 Ordered Medication Orders Sodium Chloride (Normal Saline) 1,000 mls @ 999 mls/hr IV ASDIRECTED MARCOS Last Admin: 04/10/17 18:23 Dose: 999 mls/hr Sodium Chloride (Saline Flush) 10 ml FLUSH ASDIRECTED PRN PRN Reason: Keep Vein Open Last Admin: 04/10/17 18:14 Dose: 10 ml Meds: Medications Generic Name Dose Route Start Last Admin Trade Name Freq PRN Reason Stop Dose Admin Sodium Chloride 1,000 mls @ 999 mls/hr 04/10/17 18:15 04/10/17 18:23 Normal Saline IV 999 mls/hr ASDIRECTED MARCOS Administration Sodium Chloride 10 ml 04/10/17 18:13 04/10/17 18:14 Saline Flush FLUSH 10 ml ASDIRECTED PRN Administration Keep Vein Open Discontinued Medications Generic Name Dose Route Start Last Admin Trade Name Freq PRN Reason Stop Dose Admin Ketorolac Tromethamine 30 mg 04/10/17 18:08 04/10/17 18:25 Toradol IVPUSH 04/10/17 18:09 30 mg ONETIME ONE Administration Ondansetron HCl 4 mg 04/10/17 18:07 04/10/17 18:24 Zofran IVPUSH 04/10/17 18:08 4 mg ONETIME ONE Administration - Re-Assessments/Exams Free Text/Narrative Re-Assessment/Exam: 04/10/17 18:59 some improvement with meds, will defer on narcotics to her PCP, was given a temporizing does of MS 4 mg and Lortab 5/325 2d ago on the weekend until she could talk to her PCP Dr Mayer, who has declined additional controlled meds , pt states she ate applesauce today, clinically does not appear dehydrated Departure - Departure Time of Disposition: 18:15 Disposition: Home, Self-Care 01 Condition: Good Clinical Impression: GERD (gastroesophageal reflux disease) - Discharge Information Instructions: Gastroesophageal Reflux Disease, Adult Referrals: Riley Mayer MD [Primary Care Provider] - Forms: ED Department Discharge Additional Instructions: Continue Protonix 40 mg 1 tab daily. Continue sucralfate 1 gm 1 tab 1 hour before meal and bedtime. Continue antacids 30 cc 2 hours after meals and bedtime. Continue Zofran ODT 4 mg anita 6 hours as needed. For pain, take acetaminophen 325 mg 2 tabs 4 times a day. See GI when you can get an appointment. See Dr Mayer in the next few days as needed. - My Orders Last 24 Hours: My Active Orders 04/10/17 18:13 Sodium Chloride 0.9% [Saline Flush] 10 ml FLUSH ASDIRECTED PRN Saline Lock Insert [OM.PC] Routine 04/10/17 18:15 Sodium Chloride 0.9% [Normal Saline] 1,000 ml IV ASDIRECTED 04/10/17 18:58 Metoclopramide [Reglan] 10 mg IVPUSH ONETIME ONE diphenhydrAMINE [Benadryl] 50 mg IVPUSH ONETIME ONE - Assessment/Plan Last 24 Hours: My Active Orders 04/10/17 18:13 Sodium Chloride 0.9% [Saline Flush] 10 ml FLUSH ASDIRECTED PRN Saline Lock Insert [OM.PC] Routine 04/10/17 18:15 Sodium Chloride 0.9% [Normal Saline] 1,000 ml IV ASDIRECTED 04/10/17 18:58 Metoclopramide [Reglan] 10 mg IVPUSH ONETIME ONE diphenhydrAMINE [Benadryl] 50 mg IVPUSH ONETIME ONE
[2017-04-10] MEDS ORDERED: Sodium Chloride 0.9% 1,000 ML IV SCH (18:15)
[2017-04-10] MEDS ORDERED: Metoclopramide 10 MG/2 ML SDV IVPUSH ONE (18:58)
[2017-04-10] MEDS ORDERED: diphenhydrAMINE 50 MG/ML SDV IVPUSH ONE (18:58)
[2017-04-10 19:33] VITALS: BP 115/72
== END 2017-04-10 19:31 | disposition home or self-care (01) ==
LOC: FB.ED 17:27
DX: K21.9 Gastro-esophageal reflux disease without esophagitis (principal); F41.0 Panic disorder [episodic paroxysmal anxiety]; F17.210 Nicotine dependence, cigarettes, uncomplicated; Z79.899 Other long term (current) drug therapy; Z88.0 Allergy status to penicillin
CPT/HCPCS: 96361; 96374; 96375; 99283; J1200; J1885; J2405; J2765; J7040; J7050

== ENCOUNTER 2017-04-22 12:06 | Emergency (ER) | payer MEDICAID ==
[2017-04-22] MEDS ORDERED: Ondansetron 8 MG Tab.DIS PO ONE (12:38)
[2017-04-22] MEDS ORDERED: Alum Hydroxide/Mag Hydroxide 15 ML, Lidocaine 2% 15 ML PO ONE ×2 (12:39)
--- NOTE | 2017-04-22 13:13 | EDM.PDOC ---
ED HPI GENERAL MEDICAL PROBLEM - General Chief Complaint: Abdominal Pain Stated Complaint: HEADACH, VOMITTING, PAIN Time Seen by Provider: 04/22/17 12:10 Source of Information: Reports: Patient, Family History Limitations: Reports: No Limitations - History of Present Illness INITIAL COMMENTS - FREE TEXT/NARRATIVE: 36 y.o.w.f s/p Hysterectomy-came to the ed due to epigastric pain off on for several weeks. This is the 4th visit to this hospital for same. Pt was seen by her PMD who wiil arrange an endoscopy procedure at [facility]. Pt does not have an appointment a upper endoscopy yet set uo. No N/V/D no dizziness. BP 101/66 pulse 88 temp 36.6 RR 17 Pulse ox 98% Onset Date: 03/28/17 Onset Time: 07:00 Duration: Week(s):, Intermittent Location: Reports: Abdomen (epigastric) Quality: Reports: Burning, Dull, Pressure, Same as Previous Episode Improves with: Reports: Rest Worsens with: Reports: Movement (in supine position) Associated Symptoms: Reports: No Other Symptoms Rt upper abdomen until Rt upper back Pain Score (Numeric/FACES): 8 - Related Data Allergies Allergy/AdvReac Type Severity Reaction Status Date / Time Penicillins Allergy Severe Difficulty Verified 04/10/17 17:36 Breathing Home Meds: Home Meds DULoxetine HCl [Cymbalta] 60 mg PO BID 02/09/16 [History] Sucralfate [Sucralfate] 1 gm PO QID 04/02/16 [History] ARIPiprazole [Abilify] 5 mg PO BEDTIME 04/06/17 [History] Cyanocobalamin (Vitamin B-12) [Vitamin B-12] 500 mcg PO DAILY 04/06/17 [History] Iron,Carbonyl/Vit C/Vit B12/Fa [Iron 100 Plus Tablet] 1 tab DAILY 04/06/17 [ History] Pantoprazole Sodium [Protonix] 40 mg PO DAILY 04/06/17 [History] Past Medical History - Past Health History Medical/Surgical History: Denies Medical/Surgical History HEENT History: Reports: None Gastrointestinal History: Reports: Cholelithiasis, GERD, Other (See Below) Other Gastrointestinal History: candy cane rue syndrome Genitourinary History: Reports: UTI, 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, Musculoskeletal History: Reports: Fracture Other Musculoskeletal History: fx R wrist, fx L foot Psychiatric History: Reports: Anxiety, Depression, Panic Attack Endocrine/Metabolic History: Reports: Obesity/BMI 30+ Hematologic History: Reports: B12 Deficiency, Iron Deficiency - Infectious Disease History Infectious Disease History: Reports: Chicken Pox, Shingles - Past Surgical History HEENT Surgical History: Reports: Adenoidectomy, Oral Surgery, Tonsillectomy Other HEENT Surgeries/Procedures: 1995 GI Surgical History: Reports: Appendectomy, Bariatric Procedure, Cholecystectomy , EGD Female Surgical History: Reports: Hysterectomy, Oophorectomy, Salpingo- Oophorectomy Musculoskeletal Surgical History: Reports: None Oncologic Surgical History: Reports: Other (See Below) Social & Family History - Family History Family Medical History: Noncontributory - Tobacco Use Smoking Status *Q: Current Every Day Smoker Years of Tobacco use: 20 Packs/Tins Daily: 0.5 Second Hand Smoke Exposure: No - Caffeine Use Caffeine Use: Reports: Coffee, Soda - Alcohol Use Days Per Week of Alcohol Use: 0 - Recreational Drug Use Recreational Drug Use: No Drug Use in Last 12 Months: Yes ED ROS GENERAL - Review of Systems Review Of Systems: See Below Constitutional: Reports: No Symptoms HEENT: Reports: No Symptoms Respiratory: Reports: No Symptoms Cardiovascular: Reports: No Symptoms, Palpitations Endocrine: Reports: No Symptoms GI/Abdominal: Reports: Abdominal Pain : Reports: No Symptoms Musculoskeletal: Reports: No Symptoms Skin: Reports: No Symptoms Neurological: Reports: No Symptoms Psychiatric: Reports: No Symptoms Hematologic/Lymphatic: Reports: No Symptoms Immunologic: Reports: No Symptoms ED EXAM, GI/ABD - Physical Exam Exam: See Below Exam Limited By: No Limitations General Appearance: Alert, WD/WN, Mild Distress Eyes: Bilateral: Normal Appearance Ears: Normal External Exam Nose: Normal Inspection Throat/Mouth: Normal Inspection Head: Atraumatic, Normocephalic Neck: Normal Inspection, Supple, Non-Tender Respiratory/Chest: No Respiratory Distress Cardiovascular: Normal Peripheral Pulses GI/Abdominal Exam: Normal Bowel Sounds, Tender ([id number] area) (Female) Exam: Deferred Rectal (Female) Exam: Deferred Back Exam: Normal Inspection, Full Range of Motion Extremities: Normal Inspection, Normal Range of Motion, Non-Tender Neurological: Alert, Oriented, CN II-XII Intact, Normal Cognition, Normal Gait Psychiatric: Normal Affect Skin Exam: Warm, Dry, Intact, Normal Color Lymphatic: No Adenopathy Course - Vital Signs Text/Narrative:: 36 y.o.w.f s/p Hysterectomy-came to the ed due to epigastric pain off on for several weeks. This is the 4th visit to this hospital for same. Pt was seen by her PMD who wiil arrange an endoscopy procedure at [facility]. Pt does not have an appointment a upper endoscopy yet set uo. No N/V/D no dizziness. BP 101/66 pulse 88 temp 36.6 RR 17 Pulse ox 98% PE: Epigastric tenderness. Labs was ordered in the prev visits. UA was repeated because it showed Hematuria at her last visit. Labs: UA: Neg Impression: Epigastric tenderness and nausea Tx: Zofran, GI cocktail Reexam: Improved Plan: D/C with instructions Last Recorded V/S: Last Vital Signs Temp 36.8 C 04/22/17 13:28 Pulse 90 04/22/17 13:28 Resp 15 04/22/17 13:28 BP 108/74 04/22/17 13:28 Pulse Ox 98 04/22/17 13:28 - Orders/Labs/Meds Labs: Laboratory Tests 04/22/17 Range/Units 12:50 Urine Color Yellow (YELLOW) Urine Appearance Clear (CLEAR) Urine pH 7.0 H (5.0-6.5) Ur Specific [employer] 1.010 (1.010-1.025) Urine Protein Negative (NEGATIVE) mg/dL Urine Glucose (UA) Normal (NEGATIVE) mg/dL Urine Ketones Negative (NEGATIVE) mg/dL Urine Occult Blood Negative (NEGATIVE) Urine Nitrite Negative (NEGATIVE) Urine Bilirubin Negative (NEGATIVE) Urine Urobilinogen Normal (NEGATIVE) mg/dL Ur Leukocyte Esterase Negative (NEGATIVE) Urine RBC 5-10 (0) Urine WBC 0-5 (0) Ur Squamous Epith Cells Moderate H (NS,R,O) Urine Bacteria Rare H (NS) Meds: Medications Discontinued Medications Generic Name Dose Route Start Last Admin Trade Name Freq PRN Reason Stop Dose Admin Al Hydroxide/Mg Hydroxide 15 0 ml 04/22/17 12:39 04/22/17 12:49 ml/ Lidocaine HCl 15 ml PO 04/22/17 12:40 15 ml ONETIME ONE Administration Ondansetron HCl 8 mg 04/22/17 12:38 04/22/17 12:49 Zofran Odt PO 04/22/17 12:39 8 mg ONETIME ONE Administration Departure - Departure Time of Disposition: 13:22 Disposition: Home, Self-Care 01 Condition: Good Clinical Impression: Epigastric abdominal pain - Discharge Information Instructions: Abdominal Pain, Adult, [id number] Referrals: Riley Mayer MD [Primary Care Provider] - Forms: ED Department Discharge Additional Instructions: Please cont your current meds, please F/U with your PMD/GI specialist, please come back if your symptoms get worse.
[2017-04-22 13:29] VITALS: BP 108/74
== END 2017-04-22 13:30 | disposition home or self-care (01) ==
LOC: FB.ED 12:06
DX: R10.816 Epigastric abdominal tenderness (principal); R10.13 Epigastric pain; F17.210 Nicotine dependence, cigarettes, uncomplicated; Z88.0 Allergy status to penicillin
CPT/HCPCS: 81001; 99284; A9270

== ENCOUNTER 2017-07-10 13:49 | Observation (INO) | payer MEDICAID ==
[2017-07-10] MEDS ORDERED: Pneumococcal Polyvalent-23 Vaccine 0.5 ML SDV IM ONE (14:14)
[2017-07-10] MEDS ORDERED: Sodium Chloride 0.9% 10 ML Syringe FLUSH PRN (14:14)
[2017-07-10] MEDS: Sodium Chloride 0.9% 1,000 ML IV SCH ×3 (14:51→23:00)
[2017-07-10] MEDS ORDERED: Ketorolac 30 MG/ML SDV IVPUSH PRN (14:54)
[2017-07-10] MEDS: Ondansetron 4 MG/2 ML SDV IV PRN ×2 (14:55→18:58)
[2017-07-10] MEDS ORDERED: ClonazePAM 0.5 MG Tab PO PRN (17:19)
[2017-07-10] MEDS ORDERED: Acetaminophen 500 MG Tab PO PRN (17:19)
--- NOTE | 2017-07-10 17:26 | PCM.HP ---
H&P History of Present Illness - General Date of Service: 07/10/17 Admit Problem/Dx: Admission Diagnosis/Problem Admission Diagnosis/Problem Dehydration Source of Information: Patient History Limitations: Reports: No Limitations - History of Present Illness Initial Comments - Free Text/Narative: This is a 36-year-old male patient saw Dr. Riley Kat today for epigastric pain. 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 One year ago she had an ulcer and was treated with Protonix and Carafate. For over a month she's been having epigastric pain and has lost around 20 pounds. Patient states she has epigastric pain and is not able to eat or drink. She says she is urinating but very rarely has a bowel movement. She is nauseated and vomits daily for the last month or so. She is Zofran and Reglan for that. She had a upper GI with small bowel follow-through on 07/09/17. Impression was appearance of a possible ulcer at the anastomosis of the gastric pouch and small bowel. 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 Dr. Kat called back to surgery and they felt she should just be admitted for fluids. They set her up for a CT of abdomen and pelvis enterography next week. Epigastric Pain Score (Numeric/FACES): 8 - Related Data Allergies/Adverse Reactions: Allergies Allergy/AdvReac Type Severity Reaction Status Date / Time Penicillins Allergy Severe Difficulty Verified 07/10/17 14:53 Breathing Home Medications: Home Meds DULoxetine HCl [Cymbalta] 60 mg PO BID 02/09/16 [History] Sucralfate [Sucralfate] 1 gm PO QIDACANDBED 04/02/16 [History] ARIPiprazole [Abilify] 5 mg PO BEDTIME 04/06/17 [History] Pantoprazole Sodium [Protonix] 40 mg PO DAILY 04/06/17 [History] Acetaminophen [Tylenol Extra Strength] 1,000 mg PO Q6H PRN 07/10/17 [History] ClonazePAM [KlonoPIN] 0.5 mg PO BID PRN 07/10/17 [History] Metoclopramide HCl [Metoclopramide HCl] 10 mg PO QIDACANDBED 07/10/17 [History] Ondansetron [Zofran ODT] 4 mg SL Q6H PRN 07/10/17 [History] Past Medical History - Past Health History Medical/Surgical History: Denies Medical/Surgical History HEENT History: Reports: None Gastrointestinal History: Reports: Cholelithiasis, GERD, Other (See Below) Other Gastrointestinal History: candy cane rue syndrome Genitourinary History: Reports: UTI, Recurrent [employer] History: Reports: 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, Musculoskeletal History: Reports: Fracture Other Musculoskeletal History: fx R wrist, fx L foot Psychiatric History: Reports: Anxiety, Depression, Panic Attack Endocrine/Metabolic History: Reports: Obesity/BMI 30+ Hematologic History: Reports: B12 Deficiency, Iron Deficiency - Infectious Disease History Infectious Disease History: Reports: Shingles - Past Surgical History HEENT Surgical History: Reports: Adenoidectomy, Oral Surgery, Tonsillectomy Other HEENT Surgeries/Procedures: 1995 GI Surgical History: Reports: Appendectomy, Bariatric Procedure, Cholecystectomy , EGD Female Surgical History: Reports: Hysterectomy, Oophorectomy, Salpingo- Oophorectomy Musculoskeletal Surgical History: Reports: None Oncologic Surgical History: Reports: Other (See Below) Social & Family History - Family History Family Medical History: Noncontributory - Tobacco Use Smoking Status *Q: Current Every Day Smoker Years of Tobacco use: 20 Packs/Tins Daily: 0.7 Second Hand Smoke Exposure: No - Caffeine Use Caffeine Use: Reports: Soda Other Caffeine Use: 6 ounces - Alcohol Use Days Per Week of Alcohol Use: 0 - Recreational Drug Use Recreational Drug Use: No Drug Use in Last 12 Months: Yes H&P Review of Systems - Review of Systems: Review Of Systems: See Below General: Reports: Malaise, Weakness, Decreased Appetite, Weight Loss HEENT: Reports: No Symptoms Pulmonary: Reports: No Symptoms Cardiovascular: Reports: No Symptoms Gastrointestinal: Reports: Abdominal Pain, Nausea, Vomiting. Denies: Black Stool, Bloody Stool, Difficulty Swallowing, Hematemesis, Hematochezia, Melena Genitourinary: Reports: No Symptoms Musculoskeletal: Reports: No Symptoms Skin: Reports: No Symptoms Psychiatric: Reports: Depression Neurological: Reports: No Symptoms Hematologic/Lymphatic: Reports: No Symptoms Immunologic: Reports: No Symptoms Exam - Exam Exam: See Below - Vital Signs Vital Signs: Last Vital Signs Temp 97.9 F 07/10/17 13:57 Pulse 74 07/10/17 13:57 Resp 16 07/10/17 13:57 BP 103/71 07/10/17 13:57 Pulse Ox 100 07/10/17 13:57 Weight: 151 lb 1.6 oz - Exam General: Alert, Oriented, Cooperative HEENT: Posterior Pharynx Clear, TMs Clear Neck: Supple, Trachea Midline Lungs: Clear to Auscultation, Normal Respiratory Effort. No: Crackles, Rales, Rhonchi Cardiovascular: Regular Rate, Regular Rhythm. No: Systolic Murmur, Diastolic Murmur GI/Abdominal Exam: Normal Bowel Sounds, Soft, No Organomegaly, No Distention, No Abnormal Bruit, Tender (Epigastric). No: Distended, Guarding, Rigid, Rebound , Abnormal Bowel Sounds, Hernia, Mass, Hepatomegaly, Splenomegaly Back Exam: Normal Inspection, Full Range of Motion Extremities: Normal Inspection, Normal Range of Motion, Non-Tender, No Pedal Edema Skin: Warm, Dry, Intact Neurological: Normal Speech, Normal Tone Neuro Extensive - Mental Status: Alert, Oriented x3, Normal Mood/Affect, Normal Cognition, Memory Intact Neuro Extensive - Motor, Sensory, Reflexes: Normal Gait Psychiatric: Alert, Normal Affect - Patient Data Lab Results Last 24 hrs: Laboratory Results - last 24 hr 07/10/17 07/10/17 Range/Units 14:23 14:23 WBC 7.9 (4.5-12.0) X10-3/uL RBC 4.44 (3.23-5.20) x10(6)uL Hgb 13.6 (11.5-15.5) g/dL Hct 40.3 (30.0-51.3) % MCV 90.8 (80-96) fL MCH 30.5 (27.7-33.6) pg MCHC 33.6 (32.2-35.4) g/dL RDW 12.8 (11.5-15.5) % Plt Count 243 (125-369) X10(3)uL MPV 9.3 (7.4-10.4) fL Neut % (Auto) 60.8 (46-82) % Lymph % (Auto) 30.9 (13-37) % [place] % (Auto) 6.3 (4-12) % Eos % (Auto) 1 (1.0-5.0) % Baso % (Auto) 1 (0-2) % Neut # (Auto) 4.9 (1.6-8.3) # Lymph # (Auto) 2.4 (0.6-5.0) # [place] # (Auto) 0.5 (0.0-1.3) # Eos # (Auto) 0.1 (0.0-0.8) # Baso # (Auto) 0.0 (0.0-0.2) # Sodium 142 (135-145) mmol/L Potassium 4.4 (3.5-5.3) mmol/L Chloride 104 (100-110) mmol/L Carbon Dioxide 29 (21-32) mmol/L BUN 9 (7-18) mg/dL Creatinine 0.7 (0.55-1.02) mg/dL Est Cr Clr Drug Dosing 90.75 mL/min Estimated GFR (MDRD) > 60 (>60) BUN/Creatinine Ratio 12.9 (9-20) Glucose 92 (80-116) mg/dL Calcium 8.9 (8.6-10.2) mg/dL Total Bilirubin 0.1 (0.1-1.3) mg/dL AST 14 (5-25) IU/L ALT 22 (12-36) U/L Alkaline Phosphatase 104 (56-112) IU/L Total Protein 6.0 (6.0-8.0) g/dL Albumin 3.3 L (3.5-5.2) g/dL Globulin 2.7 g/dL Albumin/Globulin Ratio 1.2 Result Diagrams: 07/10/17 14:23 07/10/17 14:23 *Q Meaningful Use (ADM) - VTE *Q VTE Criteria *Q: - Stroke *Q Stroke Criteria *Q: - AMI *Q AMI Criteria *Q: - Problem List (1) Dehydration SNOMED Code(s): 00359048 ICD Code: E86.0 - DEHYDRATION Status: Acute Current Visit: Yes (2) Status post gastric bypass for obesity SNOMED Code(s): 952834428, 377560504, 115306220 ICD Code: Z98.84 - BARIATRIC SURGERY STATUS Status: Acute Current Visit: Yes (3) Epigastric abdominal pain SNOMED Code(s): 67601875 ICD Code: R10.13 - EPIGASTRIC PAIN Status: Acute Current Visit: No Problem Details: Epigastric abdominal pain NOS. She will continue maintenance meds as directed. I dispensed Tramadol 50 mg tab q 6 hrs prn for pain. (4) Vomiting SNOMED Code(s): 198212019 ICD Code: R11.10 - VOMITING, UNSPECIFIED Status: Acute Current Visit: No Problem List Initiated/Reviewed/Updated: Yes Orders Last 24hrs: Active Orders 24 hr Category Date Time Status Patient Status [ADT] Routine ADT 07/10/17 14:14 Active Height and Weight [RC] DAILY Care 07/10/17 14:14 Active Intake and Output [RC] QSHIFT Care 07/10/17 14:15 Active Notify Provider Consults [RC] ASDIRECTED Care 07/10/17 14:55 Active Oxygen Therapy [RC] PRN Care 07/10/17 14:14 Active Up ad Zayra [RC] ASDIRECTED Care 07/10/17 14:14 Active VTE/DVT Education [RC] Per Unit Routine Care 07/10/17 14:14 Active Vital Signs [RC] 04,08,12,16,20,00 Care 07/10/17 14:14 Active Full Liquid Diet [DIET] Diet 07/10/17 Dinner Active Nothing per Oral After Midnight Diet [DIET] Diet 07/10/17 Dinner Active ARIPiprazole [Abilify] Med 07/10/17 21:00 Ordered 5 mg PO BEDTIME Acetaminophen [Tylenol Extra Strength] Med 07/10/17 17:19 Ordered 1,000 mg PO Q6H PRN ClonazePAM [KlonoPIN] Med 07/10/17 17:19 Ordered 0.5 mg PO BID PRN DULoxetine [Cymbalta] Med 07/10/17 21:00 Ordered 60 mg PO BID Ketorolac [Toradol] Med 07/10/17 14:54 Active 30 mg IVPUSH Q6H PRN Morphine Med 07/10/17 17:09 Active 2 mg IVPUSH Q2H PRN Ondansetron [Zofran] Med 07/10/17 14:14 Active 4 mg IV Q4H PRN Sodium Chloride 0.9% [Normal Saline] 1,000 ml Med 07/10/17 14:15 Active IV ASDIRECTED Sodium Chloride 0.9% [Saline Flush] Med 07/10/17 14:14 Active 10 ml FLUSH ASDIRECTED PRN Saline Lock Insert [OM.PC] Routine Oth 07/10/17 14:14 Ordered Resuscitation Status Routine Resus Stat 07/10/17 14:14 Ordered Medication Orders Sodium Chloride (Normal Saline) 1,000 mls @ 250 mls/hr IV ASDIRECTED MARCOS Last Admin: 07/10/17 14:51 Dose: 250 mls/hr Ketorolac Tromethamine (Toradol) 30 mg IVPUSH Q6H PRN PRN Reason: Pain Stop: 07/15/17 14:55 Last Admin: 07/10/17 15:19 Dose: 30 mg Morphine Sulfate (Morphine) 2 mg IVPUSH Q2H PRN PRN Reason: Pain Ondansetron HCl (Zofran) 4 mg IV Q4H PRN PRN Reason: Nausea/Vomiting Last Admin: 07/10/17 14:55 Dose: 4 mg Sodium Chloride (Saline Flush) 10 ml FLUSH ASDIRECTED PRN PRN Reason: Keep Vein Open Last Admin: 07/10/17 14:50 Dose: 10 ml Assessment/Plan Comment:: 1. Admit for rehydration and observation. 2. IV Zofran and IV morphine for pain and nausea. 3. IV proton pump inhibitor. 4. Clear liquids. 5. Eyes nose daily weights. 6. Up ad zayra. 7. Dr. Jones has been consulted. 8. Dr. Jones once her nothing by mouth after midnight.
[2017-07-10] MEDS: Morphine 2 MG/ML Syringe IVPUSH PRN ×2 (18:02→22:13)
[2017-07-10] MEDS: Pantoprazole 40 MG Vial IVPUSH SCH (18:42)
[2017-07-10] MEDS ORDERED: ARIPiprazole 5 MG Tab PO SCH (21:00)
[2017-07-10] MEDS: DULoxetine 60 MG Cap PO SCH (22:12)
[2017-07-11] MEDS: Ondansetron 4 MG/2 ML SDV IV PRN ×2 (00:56→07:09)
[2017-07-11] MEDS: Morphine 2 MG/ML Syringe IVPUSH PRN ×3 (00:56→07:05)
[2017-07-11] MEDS: Sodium Chloride 0.9% 1,000 ML IV SCH (05:45)
--- NOTE | 2017-07-11 08:10 | PCM.PN ---
- General Info Date of Service: 07/11/17 Admission Dx/Problem (Free Text): Patient states she feels better today. She has less pain or she still having some nausea that's been relieved by the Zofran. She has not had a BM. She is urinating a little bit more. - Patient Data Vitals - Most Recent: Last Vital Signs Temp 98.7 F 07/11/17 04:59 Pulse 65 07/11/17 04:59 Resp 18 07/11/17 04:59 BP 100/60 07/11/17 04:59 Pulse Ox 96 07/11/17 04:59 Weight - Most Recent: 156 lb 6.4 oz I&O - Last 24 Hours: Intake & Output 07/10/17 07/11/17 07/11/17 22:59 06:59 14:59 Intake Total 1000 Output Total 250 Balance 750 Lab Results Last 24 Hours: Laboratory Results - last 24 hr 07/10/17 07/10/17 07/10/17 Range/Units 14:23 14:23 19:00 WBC 7.9 (4.5-12.0) X10-3/uL RBC 4.44 (3.23-5.20) x10(6)uL Hgb 13.6 (11.5-15.5) g/dL Hct 40.3 (30.0-51.3) % MCV 90.8 (80-96) fL MCH 30.5 (27.7-33.6) pg MCHC 33.6 (32.2-35.4) g/dL RDW 12.8 (11.5-15.5) % Plt Count 243 (125-369) X10(3)uL MPV 9.3 (7.4-10.4) fL Neut % (Auto) 60.8 (46-82) % Lymph % (Auto) 30.9 (13-37) % [place] % (Auto) 6.3 (4-12) % Eos % (Auto) 1 (1.0-5.0) % Baso % (Auto) 1 (0-2) % Neut # (Auto) 4.9 (1.6-8.3) # Lymph # (Auto) 2.4 (0.6-5.0) # [place] # (Auto) 0.5 (0.0-1.3) # Eos # (Auto) 0.1 (0.0-0.8) # Baso # (Auto) 0.0 (0.0-0.2) # Sodium 142 (135-145) mmol/L Potassium 4.4 (3.5-5.3) mmol/L Chloride 104 (100-110) mmol/L Carbon Dioxide 29 (21-32) mmol/L BUN 9 (7-18) mg/dL Creatinine 0.7 (0.55-1.02) mg/dL Est Cr Clr Drug Dosing 90.75 mL/min Estimated GFR (MDRD) > 60 (>60) BUN/Creatinine Ratio 12.9 (9-20) Glucose 92 (80-116) mg/dL Calcium 8.9 (8.6-10.2) mg/dL Total Bilirubin 0.1 (0.1-1.3) mg/dL AST 14 (5-25) IU/L ALT 22 (12-36) U/L Alkaline Phosphatase 104 (56-112) IU/L Total Protein 6.0 (6.0-8.0) g/dL Albumin 3.3 L (3.5-5.2) g/dL Globulin 2.7 g/dL Albumin/Globulin Ratio 1.2 Amylase (25-115) U/L Urine Color Yellow (YELLOW) Urine Appearance Clear (CLEAR) Urine pH 7.0 H (5.0-6.5) Ur Specific [place] 1.005 L (1.010-1.025) Urine Protein Negative (NEGATIVE) mg/dL Urine Glucose (UA) Normal (NEGATIVE) mg/dL Urine Ketones 15 H (NEGATIVE) mg/dL Urine Occult Blood Negative (NEGATIVE) Urine Nitrite Negative (NEGATIVE) Urine Bilirubin Negative (NEGATIVE) Urine Urobilinogen 4 H (NEGATIVE) mg/dL Ur Leukocyte Esterase Negative (NEGATIVE) Urine RBC 0-5 (0) Urine WBC 0-5 (0) Ur Squamous Epith Cells Few H (NS,R,O) Urine Bacteria Rare H (NS) Urine Mucus Few H (NS) 07/11/17 Range/Units 07:35 WBC (4.5-12.0) X10-3/uL RBC (3.23-5.20) x10(6)uL Hgb (11.5-15.5) g/dL Hct (30.0-51.3) % MCV (80-96) fL MCH (27.7-33.6) pg MCHC (32.2-35.4) g/dL RDW (11.5-15.5) % Plt Count (125-369) X10(3)uL MPV (7.4-10.4) fL Neut % (Auto) (46-82) % Lymph % (Auto) (13-37) % [place] % (Auto) (4-12) % Eos % (Auto) (1.0-5.0) % Baso % (Auto) (0-2) % Neut # (Auto) (1.6-8.3) # Lymph # (Auto) (0.6-5.0) # [place] # (Auto) (0.0-1.3) # Eos # (Auto) (0.0-0.8) # Baso # (Auto) (0.0-0.2) # Sodium (135-145) mmol/L Potassium (3.5-5.3) mmol/L Chloride (100-110) mmol/L Carbon Dioxide (21-32) mmol/L BUN (7-18) mg/dL Creatinine (0.55-1.02) mg/dL Est Cr Clr Drug Dosing mL/min Estimated GFR (MDRD) (>60) BUN/Creatinine Ratio (9-20) Glucose (80-116) mg/dL Calcium (8.6-10.2) mg/dL Total Bilirubin (0.1-1.3) mg/dL AST (5-25) IU/L ALT (12-36) U/L Alkaline Phosphatase (56-112) IU/L Total Protein (6.0-8.0) g/dL Albumin (3.5-5.2) g/dL Globulin g/dL Albumin/Globulin Ratio Amylase 31 (25-115) U/L Urine Color (YELLOW) Urine Appearance (CLEAR) Urine pH (5.0-6.5) Ur Specific [place] (1.010-1.025) Urine Protein (NEGATIVE) mg/dL Urine Glucose (UA) (NEGATIVE) mg/dL Urine Ketones (NEGATIVE) mg/dL Urine Occult Blood (NEGATIVE) Urine Nitrite (NEGATIVE) Urine Bilirubin (NEGATIVE) Urine Urobilinogen (NEGATIVE) mg/dL Ur Leukocyte Esterase (NEGATIVE) Urine RBC (0) Urine WBC (0) Ur Squamous Epith Cells (NS,R,O) Urine Bacteria (NS) Urine Mucus (NS) Med Orders - Current: Current Medications Acetaminophen (Tylenol Extra Strength) 1,000 mg PO Q6H PRN PRN Reason: PAIN/HEADACHE Aripiprazole (Abilify) 5 mg PO BEDTIME [facility] Last Admin: 07/10/17 22:12 Dose: 5 mg Clonazepam (Klonopin) 0.5 mg PO BID PRN PRN Reason: Anxiety Last Admin: 07/10/17 18:02 Dose: 0.5 mg Duloxetine HCl (Cymbalta) 60 mg PO BID [facility] Last Admin: 07/10/17 22:12 Dose: 60 mg Sodium Chloride (Normal Saline) 1,000 mls @ 150 mls/hr IV ASDIRECTED [facility] Last Admin: 07/11/17 05:45 Dose: 150 mls/hr Morphine Sulfate (Morphine) 2 mg IVPUSH Q2H PRN PRN Reason: Pain Last Admin: 07/11/17 07:05 Dose: 2 mg Ondansetron HCl (Zofran) 4 mg IV Q4H PRN PRN Reason: Nausea/Vomiting Last Admin: 07/11/17 07:09 Dose: 4 mg Pantoprazole Sodium (Protonix Iv) 40 mg IVPUSH Q24H [facility] Last Admin: 07/10/17 18:42 Dose: 40 mg Sodium Chloride (Saline Flush) 10 ml FLUSH ASDIRECTED PRN PRN Reason: Keep Vein Open Last Admin: 07/10/17 14:50 Dose: 10 ml Discontinued Medications Sodium Chloride (Normal Saline) 1,000 mls @ 250 mls/hr IV ASDIRECTED [facility] Stop: 07/10/17 21:59 Last Admin: 07/10/17 18:58 Dose: 250 mls/hr Ketorolac Tromethamine (Toradol) 30 mg IVPUSH Q6H PRN PRN Reason: Pain Stop: 07/15/17 14:55 Last Admin: 07/10/17 15:19 Dose: 30 mg Pneumococcal Polyvalent Vaccine (Pneumovax 23) 0.5 ml IM .ONCE ONE Stop: 07/10/17 14:15 - Exam General: Alert, Oriented, Cooperative Lungs: Normal Respiratory Effort GI/Abdominal Exam: Normal Bowel Sounds, Soft, Non-Tender, No Organomegaly, Tender (Mild epigastric) - Problem List & Annotations (1) Dehydration SNOMED Code(s): 49743065 Code(s): E86.0 - DEHYDRATION Status: Acute Current Visit: Yes (2) Status post gastric bypass for obesity SNOMED Code(s): 152672088, 971548984, 274818012 Code(s): Z98.84 - BARIATRIC SURGERY STATUS Status: Acute Current Visit: Yes (3) Epigastric abdominal pain SNOMED Code(s): 97975160 Code(s): R10.13 - EPIGASTRIC PAIN Status: Acute Current Visit: No Annotation/Comment:: Epigastric abdominal pain NOS. She will continue maintenance meds as directed. I dispensed Tramadol 50 mg tab q 6 hrs prn for pain. (4) Vomiting SNOMED Code(s): 262892503 Code(s): R11.10 - VOMITING, UNSPECIFIED Status: Acute Current Visit: No - Problem List Review Problem List Initiated/Reviewed/Updated: Yes - My Orders Last 24 Hours: My Active Orders 07/10/17 14:14 Patient Status [ADT] Routine Height and Weight [RC] DAILY Oxygen Therapy [RC] PRN Up ad Zayra [RC] ASDIRECTED VTE/DVT Education [RC] Per Unit Routine Vital Signs [RC] 04,08,12,16,20,00 Ondansetron [Zofran] 4 mg IV Q4H PRN Sodium Chloride 0.9% [Saline Flush] 10 ml FLUSH ASDIRECTED PRN Saline Lock Insert [OM.PC] Routine Resuscitation Status Routine 07/10/17 14:15 Intake and Output [RC] 22,06,14 07/10/17 14:55 Notify Provider Consults [RC] ASDIRECTED 07/10/17 17:09 Morphine 2 mg IVPUSH Q2H PRN 07/10/17 17:19 Acetaminophen [Tylenol Extra Strength] 1,000 mg PO Q6H PRN ClonazePAM [KlonoPIN] 0.5 mg PO BID PRN 07/10/17 17:27 Consult to Physician [CONS] Routine 07/10/17 17:28 Notify Provider Consults [RC] ASDIRECTED 07/10/17 18:00 Pantoprazole [ProTONIX IV] 40 mg IVPUSH Q24H 02/13/18 21:00 ARIPiprazole [Abilify] 5 mg PO BEDTIME DULoxetine [Cymbalta] 60 mg PO BID 07/10/17 22:00 Sodium Chloride 0.9% [Normal Saline] 1,000 ml IV ASDIRECTED 07/10/17 Dinner Full Liquid Diet [DIET] Nothing per Oral After Midnight Diet [DIET] - Assessment Assessment:: 1. Dr. Jones saw her and verbally told me that he would hold off on the scope for now. He recommends going back to a full liquid diet. At already been ordered. 2. Increase IV fluids at 250 mL an hour for 1 L and then back down to under 150 mL's an hour. 3. Amylase. 4. DC MS. 5. Hydrocodone 5 x 3 25 one every 4 hours when necessary for pain. - Plan Plan:: 1. Admit for rehydration and observation. 2. IV Zofran and IV morphine for pain and nausea. 3. IV proton pump inhibitor. 4. Clear liquids. 5. Eyes nose daily weights. 6. Up ad zayra. 7. Dr. Jones has been consulted. 8. Dr. Jones once her nothing by mouth after midnight.
[2017-07-11] MEDS: DULoxetine 60 MG Cap PO SCH (09:05)
--- NOTE | 2017-07-11 09:35 | PCM.CONS ---
H&P History of Present Illness - General Admit Problem/Dx: Patient states she feels better today. She has less pain or she still having some nausea that's been relieved by the Zofran. She has not had a BM. She is urinating a little bit more. Source of Information: Patient, Old Records - History of Present Illness Initial Comments - Free Text/Narative: 36 yo F who was admitted with a dx of dehydration. She has a hx of gastric bypass with revision in 2016. Over the past few months she is having issue with nausea, vomiting, wt loss and pain. The pain is a dull ache in the epigastrium. Really no exacerbating or relieving factors. She has had persistent emesis with food. Upper gi was performed and there is a question of a possible anastomotic ulcer as well as and enteric fistula. She is to see her Bariatric surgeon next week after a CT enterogram. Epigastric Pain Score (Numeric/FACES): 7 DENIES ANY PAIN AT PRESENT TIME WHEN ASKED. Pain Score (Numeric/FACES): 0 - Related Data Allergies/Adverse Reactions: Allergies Allergy/AdvReac Type Severity Reaction Status Date / Time Penicillins Allergy Severe Difficulty Verified 07/10/17 14:53 Breathing Home Medications: Home Meds DULoxetine HCl [Cymbalta] 60 mg PO BID 02/09/16 [History] Sucralfate [Sucralfate] 1 gm PO QIDACANDBED 04/02/16 [History] ARIPiprazole [Abilify] 5 mg PO BEDTIME 04/06/17 [History] Pantoprazole Sodium [Protonix] 40 mg PO DAILY 04/06/17 [History] Acetaminophen [Tylenol Extra Strength] 1,000 mg PO Q6H PRN 07/10/17 [History] ClonazePAM [KlonoPIN] 0.5 mg PO BID PRN 07/10/17 [History] Metoclopramide HCl [Metoclopramide HCl] 10 mg PO QIDACANDBED 07/10/17 [History] Ondansetron [Zofran ODT] 4 mg SL Q6H PRN 07/10/17 [History] Past Medical History - Past Health History Medical/Surgical History: Denies Medical/Surgical History HEENT History: Reports: None Gastrointestinal History: Reports: Cholelithiasis, GERD, Other (See Below) Other Gastrointestinal History: candy cane rue syndrome Genitourinary History: Reports: UTI, Recurrent 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: Reports: 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, Musculoskeletal History: Reports: Fracture Other Musculoskeletal History: fx R wrist, fx L foot Psychiatric History: Reports: Anxiety, Depression, Panic Attack Endocrine/Metabolic History: Reports: Obesity/BMI 30+ Hematologic History: Reports: B12 Deficiency, Iron Deficiency - Infectious Disease History Infectious Disease History: Reports: Shingles - Past Surgical History HEENT Surgical History: Reports: Adenoidectomy, Oral Surgery, Tonsillectomy Other HEENT Surgeries/Procedures: 1995 GI Surgical History: Reports: Appendectomy, Bariatric Procedure, Cholecystectomy , EGD Female Surgical History: Reports: Hysterectomy, Oophorectomy, Salpingo- Oophorectomy Musculoskeletal Surgical History: Reports: None Oncologic Surgical History: Reports: Other (See Below) Social & Family History - Family History Family Medical History: Noncontributory - Tobacco Use Smoking Status *Q: Current Every Day Smoker Years of Tobacco use: 20 Packs/Tins Daily: 0.7 Second Hand Smoke Exposure: No - Caffeine Use Caffeine Use: Reports: Soda Other Caffeine Use: 6 ounces - Alcohol Use Days Per Week of Alcohol Use: 0 - Recreational Drug Use Recreational Drug Use: No Drug Use in Last 12 Months: Yes H&P Review of Systems - Review of Systems: Review Of Systems: See Below General: Reports: Weight Loss. Denies: Fever, Chills HEENT: Reports: No Symptoms Pulmonary: Reports: No Symptoms Cardiovascular: Reports: No Symptoms Gastrointestinal: Reports: Abdominal Pain, Vomiting Genitourinary: Reports: No Symptoms Musculoskeletal: Reports: No Symptoms Neurological: Reports: No Symptoms Exam - Exam Exam: See Below - Vital Signs Vital Signs: Last Vital Signs Temp 36.9 C 07/11/17 07:30 Pulse 60 07/11/17 07:30 Resp 18 07/11/17 07:30 BP 103/63 07/11/17 07:30 Pulse Ox 95 07/11/17 07:30 Weight: 70.942 kg - Exam General: Alert, Oriented, Cooperative. No: Mild Distress Lungs: Clear to Auscultation, Normal Respiratory Effort Cardiovascular: Regular Rate, Regular Rhythm GI/Abdominal Exam: Normal Bowel Sounds, Soft, Tender (very mild epigastric abd tenderness ) - Patient Data Lab Results Last 24 hrs: Laboratory Results - last 24 hr 07/10/17 07/10/17 07/10/17 Range/Units 14:23 14:23 19:00 WBC 7.9 (4.5-12.0) X10-3/uL RBC 4.44 (3.23-5.20) x10(6)uL Hgb 13.6 (11.5-15.5) g/dL Hct 40.3 (30.0-51.3) % MCV 90.8 (80-96) fL MCH 30.5 (27.7-33.6) pg MCHC 33.6 (32.2-35.4) g/dL RDW 12.8 (11.5-15.5) % Plt Count 243 (125-369) X10(3)uL MPV 9.3 (7.4-10.4) fL Neut % (Auto) 60.8 (46-82) % Lymph % (Auto) 30.9 (13-37) % [place] % (Auto) 6.3 (4-12) % Eos % (Auto) 1 (1.0-5.0) % Baso % (Auto) 1 (0-2) % Neut # (Auto) 4.9 (1.6-8.3) # Lymph # (Auto) 2.4 (0.6-5.0) # [place] # (Auto) 0.5 (0.0-1.3) # Eos # (Auto) 0.1 (0.0-0.8) # Baso # (Auto) 0.0 (0.0-0.2) # Sodium 142 (135-145) mmol/L Potassium 4.4 (3.5-5.3) mmol/L Chloride 104 (100-110) mmol/L Carbon Dioxide 29 (21-32) mmol/L BUN 9 (7-18) mg/dL Creatinine 0.7 (0.55-1.02) mg/dL Est Cr Clr Drug Dosing 90.75 mL/min Estimated GFR (MDRD) > 60 (>60) BUN/Creatinine Ratio 12.9 (9-20) Glucose 92 (80-116) mg/dL Calcium 8.9 (8.6-10.2) mg/dL Total Bilirubin 0.1 (0.1-1.3) mg/dL AST 14 (5-25) IU/L ALT 22 (12-36) U/L Alkaline Phosphatase 104 (56-112) IU/L Total Protein 6.0 (6.0-8.0) g/dL Albumin 3.3 L (3.5-5.2) g/dL Globulin 2.7 g/dL Albumin/Globulin Ratio 1.2 Amylase (25-115) U/L Urine Color Yellow (YELLOW) Urine Appearance Clear (CLEAR) Urine pH 7.0 H (5.0-6.5) Ur Specific [place] 1.005 L (1.010-1.025) Urine Protein Negative (NEGATIVE) mg/dL Urine Glucose (UA) Normal (NEGATIVE) mg/dL Urine Ketones 15 H (NEGATIVE) mg/dL Urine Occult Blood Negative (NEGATIVE) Urine Nitrite Negative (NEGATIVE) Urine Bilirubin Negative (NEGATIVE) Urine Urobilinogen 4 H (NEGATIVE) mg/dL Ur Leukocyte Esterase Negative (NEGATIVE) Urine RBC 0-5 (0) Urine WBC 0-5 (0) Ur Squamous Epith Cells Few H (NS,R,O) Urine Bacteria Rare H (NS) Urine Mucus Few H (NS) 07/11/17 Range/Units 07:35 WBC (4.5-12.0) X10-3/uL RBC (3.23-5.20) x10(6)uL Hgb (11.5-15.5) g/dL Hct (30.0-51.3) % MCV (80-96) fL MCH (27.7-33.6) pg MCHC (32.2-35.4) g/dL RDW (11.5-15.5) % Plt Count (125-369) X10(3)uL MPV (7.4-10.4) fL Neut % (Auto) (46-82) % Lymph % (Auto) (13-37) % [place] % (Auto) (4-12) % Eos % (Auto) (1.0-5.0) % Baso % (Auto) (0-2) % Neut # (Auto) (1.6-8.3) # Lymph # (Auto) (0.6-5.0) # [place] # (Auto) (0.0-1.3) # Eos # (Auto) (0.0-0.8) # Baso # (Auto) (0.0-0.2) # Sodium (135-145) mmol/L Potassium (3.5-5.3) mmol/L Chloride (100-110) mmol/L Carbon Dioxide (21-32) mmol/L BUN (7-18) mg/dL Creatinine (0.55-1.02) mg/dL Est Cr Clr Drug Dosing mL/min Estimated GFR (MDRD) (>60) BUN/Creatinine Ratio (9-20) Glucose (80-116) mg/dL Calcium (8.6-10.2) mg/dL Total Bilirubin (0.1-1.3) mg/dL AST (5-25) IU/L ALT (12-36) U/L Alkaline Phosphatase (56-112) IU/L Total Protein (6.0-8.0) g/dL Albumin (3.5-5.2) g/dL Globulin g/dL Albumin/Globulin Ratio Amylase 31 (25-115) U/L Urine Color (YELLOW) Urine Appearance (CLEAR) Urine pH (5.0-6.5) Ur Specific [place] (1.010-1.025) Urine Protein (NEGATIVE) mg/dL Urine Glucose (UA) (NEGATIVE) mg/dL Urine Ketones (NEGATIVE) mg/dL Urine Occult Blood (NEGATIVE) Urine Nitrite (NEGATIVE) Urine Bilirubin (NEGATIVE) Urine Urobilinogen (NEGATIVE) mg/dL Ur Leukocyte Esterase (NEGATIVE) Urine RBC (0) Urine WBC (0) Ur Squamous Epith Cells (NS,R,O) Urine Bacteria (NS) Urine Mucus (NS) Result Diagrams: 07/10/17 14:23 07/10/17 14:23 Consult PN Assessment/Plan Procedures: Procedures APPLY FOREARM SPLINT (04/19/16) ASSAY OF AMYLASE (04/06/17) ASSAY OF LACTIC ACID (06/09/16) ASSAY OF LIPASE (06/05/16) ASSAY OF MAGNESIUM (02/09/16) C-REACTIVE PROTEIN (06/05/16) COMPLETE CBC AUTOMATED (04/02/16) COMPLETE CBC W/AUTO DIFF WBC (04/06/17) COMPREHEN METABOLIC PANEL (03/11/17) CT ABD & PELV W/CONTRAST (12/10/16) CT ABD & PELVIS W/O CONTRAST (03/11/17) DRUG TEST PRSMV DIR OPT OBS (06/09/16) EMERGENCY DEPT VISIT (04/22/17) EMERGENCY DEPT VISIT (04/10/17) EMERGENCY DEPT VISIT (04/08/17) EMERGENCY DEPT VISIT (04/06/17) EMERGENCY DEPT VISIT (03/11/17) EMERGENCY DEPT VISIT (11/19/16) EMERGENCY DEPT VISIT (06/20/16) EMERGENCY DEPT VISIT (06/09/16) EMERGENCY DEPT VISIT (06/05/16) EMERGENCY DEPT VISIT (04/19/16) EMERGENCY DEPT VISIT (04/02/16) EMERGENCY DEPT VISIT (02/26/16) EMERGENCY DEPT VISIT (02/09/16) EMERGENCY DEPT VISIT (09/03/14) HYDRATE IV INFUSION ADD-ON (04/10/17) METABOLIC PANEL TOTAL CA (04/06/17) ROUTINE VENIPUNCTURE (03/11/17) THER/PROPH/DIAG INJ IV PUSH (04/10/17) THER/PROPH/DIAG INJ SC/IM (02/17/17) THER/PROPH/DIAG IV INF INIT (06/05/16) TX/PRO/DX INJ NEW DRUG ADDON (04/10/17) TX/PRO/DX INJ SAME DRUG DROP BOARD MAN (05/01/16) URINALYSIS AUTO W/SCOPE (04/22/17) X-RAY EXAM OF ABDOMEN (06/09/16) X-RAY EXAM OF FOOT (03/16/17) X-RAY EXAM OF WRIST (11/19/16) (1) Status post gastric bypass for obesity SNOMED Code(s): 649308925, 537146721, 802357409 Code(s): Z98.84 - BARIATRIC SURGERY STATUS Current Visit: Yes (2) Epigastric abdominal pain SNOMED Code(s): 08920637 Code(s): R10.13 - EPIGASTRIC PAIN Current Visit: No Comment: ? secondary to anastomotic ulcer, ? fistula Problem List Initiated/Reviewed/Updated: Yes Plan: At this point do not see any advantage to change the work up she is currently undergoing. EGD does not appear to be indicated. I would give her a full liquid diet and keep her follow up appt with Dr Olmos in [place] next week.
[2017-07-11] MEDS ORDERED: Sodium Chloride 0.9% 1,000 ML IV SCH ×2 (12:30→16:30)
[2017-07-11] MEDS: Acetaminophen/HYDROcodone 325-5 MG Tab PO PRN ×2 (13:01→17:37)
[2017-07-11 16:30] VITALS: BP 116/68
--- NOTE | 2017-07-11 17:29 | PCM.SN ---
- Free Text/Narrative Note: Patient says she is tolerating fluid. [place] was little difficult. She's hydrated and urinating. She like to go home.
--- NOTE | 2017-07-11 17:32 | PCM.DCSUM1 ---
Discharge Summary - Hospital Course Free Text/Narrative:: Hospital course-patient was aggressively hydrated with normal saline. Her labs were normal. She required some MS for pain IV. We used H2 blockers IV and Zofran IV which all help. She has a surgical consult a.m. He felt she was doing better and he would not scope her. That time we advanced to full liquids. Patient tolerated full liquids. It'll [place] not bothered her. Her pain was much better and we put on some hydrocodone for pain. Took away the MS. Patient elected to go home after she was well-hydrated which was the plan anyway. She has appointment bariatric surgery and a 4-[address] scan. Brief History: This is a 36-year-old male patient saw Dr. Riley Kat today for epigastric pain. She had a gastric bypass in 2003 and then had a candycane procedure in 2016. One year ago she had an ulcer and was treated with Protonix and Carafate. For over a month she's been having epigastric pain and has lost around 20 pounds. Patient states she has epigastric pain and is not able to eat or drink. She says she is urinating but very rarely has a bowel movement. She is nauseated and vomits daily for the last month or so. She is Zofran and Reglan for that. She had a upper GI with small bowel follow-through on 07/09/17. Impression was appearance of a possible ulcer at the anastomosis of the gastric pouch and small bowel. 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 Dr. Kat called back to surgery and they felt she should just be admitted for fluids. They set her up for a CT of abdomen and pelvis enterography next week. - Discharge Data Discharge Date: 07/11/17 Discharge Disposition: Home, Self-Care 01 Condition: Good - Discharge Diagnosis/Problem(s) (1) Dehydration SNOMED Code(s): 59025435 ICD Code: E86.0 - DEHYDRATION Status: Acute Current Visit: Yes (2) Status post gastric bypass for obesity SNOMED Code(s): 607187977, 812068513, 873401025 ICD Code: Z98.84 - BARIATRIC SURGERY STATUS Status: Acute Current Visit: Yes (3) Epigastric abdominal pain SNOMED Code(s): 98163491 ICD Code: R10.13 - EPIGASTRIC PAIN Status: Acute Current Visit: No Problem Details: ? secondary to anastomotic ulcer, ? fistula (4) Vomiting SNOMED Code(s): 798726982 ICD Code: R11.10 - VOMITING, UNSPECIFIED Status: Acute Current Visit: No - Patient Summary/Data Consults: Consultations 07/10/17 17:27 Consult to Physician [CONS] Routine Consulting Provider: Te Jones Courtesy Call Completed to Consulting Physician: Yes - Patient Instructions Diet: Regular Diet as Tolerated Activity: As Tolerated Driving: May Drive Today Showering/Bathing: May Shower Notify Provider of: Increased Pain, Nausea and/or Vomiting Other/Special Instructions: 1. Recheck with Dr. Kat 7-10 days. 2. She has appointment with her bariatric surgeon next week - Discharge Plan Prescriptions/Med Rec: Hydrocodone/Acetaminophen [Hydrocodon-Acetaminophen 5-325] 1 each PO Q4H PRN # 15 tablet PRN Reason: Pain Home Medications: Home Meds DULoxetine HCl [Cymbalta] 60 mg PO BID 02/09/16 [History] Sucralfate 1 gm PO QIDACANDBED 04/02/16 [History] ARIPiprazole [Abilify] 5 mg PO BEDTIME 04/06/17 [History] Pantoprazole Sodium [Protonix] 40 mg PO DAILY 04/06/17 [History] Acetaminophen [Tylenol Extra Strength] 1,000 mg PO Q6H PRN 07/10/17 [History] ClonazePAM [KlonoPIN] 0.5 mg PO BID PRN 07/10/17 [History] Metoclopramide HCl 10 mg PO QIDACANDBED 07/10/17 [History] Ondansetron [Zofran ODT] 4 mg SL Q6H PRN 07/10/17 [History] Hydrocodone/Acetaminophen [Hydrocodon-Acetaminophen 5-325] 1 each PO Q4H PRN # 15 tablet 07/11/17 [Rx] Patient Handouts: Venous Thromboembolism Prevention - Discharge Summary/Plan Comment DC Time >30 min.: No - Patient Data Vitals - Most Recent: Last Vital Signs Temp 98.2 F 07/11/17 16:00 Pulse 71 07/11/17 16:00 Resp 16 07/11/17 16:00 BP 116/68 07/11/17 16:00 Pulse Ox 96 07/11/17 16:00 Weight - Most Recent: 156 lb 6.4 oz I&O - Last 24 hours: Intake & Output 07/11/17 07/11/17 07/11/17 06:59 14:59 22:59 Intake Total 1000 1175 Output Total 250 1000 Balance 750 175 Lab Results - Last 24 hrs: Laboratory Results - last 24 hr 07/10/17 07/11/17 Range/Units 19:00 07:35 Amylase 31 (25-115) U/L Urine Color Yellow (YELLOW) Urine Appearance Clear (CLEAR) Urine pH 7.0 H (5.0-6.5) Ur Specific [place] 1.005 L (1.010-1.025) Urine Protein Negative (NEGATIVE) mg/dL Urine Glucose (UA) Normal (NEGATIVE) mg/dL Urine Ketones 15 H (NEGATIVE) mg/dL Urine Occult Blood Negative (NEGATIVE) Urine Nitrite Negative (NEGATIVE) Urine Bilirubin Negative (NEGATIVE) Urine Urobilinogen 4 H (NEGATIVE) mg/dL Ur Leukocyte Esterase Negative (NEGATIVE) Urine RBC 0-5 (0) Urine WBC 0-5 (0) Ur Squamous Epith Cells Few H (NS,R,O) Urine Bacteria Rare H (NS) Urine Mucus Few H (NS) Med Orders - Current: Current Medications Acetaminophen (Tylenol Extra Strength) 1,000 mg PO Q6H PRN PRN Reason: PAIN/HEADACHE Last Admin: 07/11/17 12:05 Dose: 1,000 mg Hydrocodone Bitart/Acetaminophen ([place] 325-5 Mg) 1 tab PO Q4H PRN PRN Reason: Pain Last Admin: 07/11/17 13:01 Dose: 1 tab Aripiprazole (Abilify) 5 mg PO BEDTIME [facility] Last Admin: 07/10/17 22:12 Dose: 5 mg Clonazepam (Klonopin) 0.5 mg PO BID PRN PRN Reason: Anxiety Last Admin: 07/10/17 18:02 Dose: 0.5 mg Duloxetine HCl (Cymbalta) 60 mg PO BID [facility] Last Admin: 07/11/17 09:05 Dose: 60 mg Sodium Chloride (Normal Saline) 1,000 mls @ 150 mls/hr IV ASDIRECTED [facility] Last Admin: 07/11/17 16:38 Dose: 150 mls/hr Ondansetron HCl (Zofran) 4 mg IV Q4H PRN PRN Reason: Nausea/Vomiting Last Admin: 07/11/17 07:09 Dose: 4 mg Pantoprazole Sodium (Protonix Iv) 40 mg IVPUSH Q24H [facility] Last Admin: 07/10/17 18:42 Dose: 40 mg Sodium Chloride (Saline Flush) 10 ml FLUSH ASDIRECTED PRN PRN Reason: Keep Vein Open Last Admin: 07/10/17 14:50 Dose: 10 ml Discontinued Medications Sodium Chloride (Normal Saline) 1,000 mls @ 250 mls/hr IV ASDIRECTED [facility] Stop: 07/10/17 21:59 Last Admin: 07/10/17 18:58 Dose: 250 mls/hr Sodium Chloride (Normal Saline) 1,000 mls @ 250 mls/hr IV ASDIRECTED [facility] Last Admin: 07/11/17 05:45 Dose: 150 mls/hr Sodium Chloride (Normal Saline) 1,000 mls @ 250 mls/hr IV ASDIRECTED [facility] Stop: 07/11/17 16:29 Last Admin: 07/11/17 12:10 Dose: 250 mls/hr Ketorolac Tromethamine (Toradol) 30 mg IVPUSH Q6H PRN PRN Reason: Pain Stop: 07/15/17 14:55 Last Admin: 07/10/17 15:19 Dose: 30 mg Morphine Sulfate (Morphine) 2 mg IVPUSH Q2H PRN PRN Reason: Pain Last Admin: 07/11/17 07:05 Dose: 2 mg Pneumococcal Polyvalent Vaccine (Pneumovax 23) 0.5 ml IM .ONCE ONE Stop: 07/10/17 14:15 *Q Meaningful Use (DIS) - VTE *Q VTE Criteria *Q: - Stroke *Q Stroke Criteria *Q: - AMI *Q AMI Criteria *Q:
[2017-07-11] MEDS ORDERED: Acetaminophen/HYDROcodone 325-5 MG Tab PO ONE (18:06)
[2017-07-11] MEDS: Pantoprazole 40 MG Vial IVPUSH SCH (19:05)
== END 2017-07-11 18:50 | disposition home or self-care (01) ==
LOC: FB.MS 13:51
PROVIDERS: ADMIT Family Medicine; ATTEND Family Medicine
DX: E86.0 Dehydration (principal); R11.10 Vomiting, unspecified; R10.13 Epigastric pain; K21.9 Gastro-esophageal reflux disease without esophagitis; F41.9 Anxiety disorder, unspecified; F32.9 Major depressive disorder, single episode, unspecified; F17.210 Nicotine dependence, cigarettes, uncomplicated; Z98.84 Bariatric surgery status; Z98.890 Other specified postprocedural states; Z79.899 Other long term (current) drug therapy; Z88.0 Allergy status to penicillin; Z90.89 Acquired absence of other organs; Z90.49 Acquired absence of other specified parts of digestive tract
CPT/HCPCS: 36415; 80053; 81001; 82150; 85025; 96361; 96374; 96375; 96376; A9270-GY; C9113; G0378; J1885; J2270; J2405; J7040; J7050

== ENCOUNTER 2017-07-14 11:21 | Emergency (ER) | payer MEDICAID ==
[2017-07-14] MEDS ORDERED: Sodium Chloride 0.9% 1,000 ML IV ONE (12:13)
[2017-07-14] MEDS ORDERED: Pantoprazole 40 MG Vial IVPUSH ONE (12:14)
[2017-07-14] MEDS ORDERED: diphenhydrAMINE 50 MG/ML SDV IVPUSH ONE (12:14)
[2017-07-14] MEDS ORDERED: Metoclopramide 10 MG/2 ML SDV IVPUSH ONE (12:15)
[2017-07-14] MEDS ORDERED: HYDROmorphone 2 MG/ML SDV IVPUSH ONE (12:57)
[2017-07-14 14:20] VITALS: BP 105/69
--- NOTE | 2017-07-17 14:01 | ER ---
DATE SEEN: 07/14/2017 TIME SEEN: The patient was seen at 1145 hours. HISTORY OF PRESENT ILLNESS: The patient complains of nausea and vomiting. She vomited 8 times since last night. No unusual food eaten. She has mild midepigastric abdominal discomfort, not unusual for her. She has had multiple visits. 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 The patient denies fever or chills with the current episode. CURRENT MEDICATIONS: 1. Sucralfate. 2. Protonix. 3. Zofran. 4. Hydrocodone. 5. Duloxetine. 6. Clonazepam. 7. Omeprazole. 8. Abilify. ALLERGIES: Penicillin. REVIEW OF SYSTEMS: HEENT: Edentulous. Denies headache, neck stiffness, fever, sore throat, sinusitis. CARDIORESPIRATORY: Denies chest pain, irregular heartbeat, shortness of breath, or cough. : Has had previous Monroe-en-Y bariatric surgery. Today, she has vomiting. No diarrhea. No unusual food she has eaten. No blood in the stool or black tarry stools. No frequency, urgency, or dysuria. OBJECTIVE: HEENT: Negative. NECK: Negative. LUNGS: Clear. CARDIAC: No murmur. No irregular rhythm. ABDOMEN: With voluntary guarding, no rebound. MUSCULOSKELETAL: Mild myalgia. Deep tendon reflexes present, but hypoactive. NEUROLOGIC: Cranial nerves 2 through 12 intact. Oriented x3. Gait appropriate. No CVA percussion tenderness. LABORATORY FINDINGS: Normal CBC, normal CMP with AST 32, ALT 87, alkaline phosphatase 142, albumin low at 3.2. DIAGNOSES: 1. Gastric disease, probably recurrence of inflammatory process along the patient's suture line that is noted this last summer per Dr. Olmos's endoscopy. She has an appointment to see Dr. Olmos in 3 to 4 days. 2. Dehydration. 3. Recurrent abdominal pain. PLAN: The patient was flushed with 1000 mL of normal saline. She was given Zofran and dismissed. She got a dose of Dilaudid 1 mg IV plus. Follow up with doctor in a week or earlier if worse. She has 80 mg of Protonix and Benadryl 50 mg, and she notes the nausea is gone, but the abdominal discomfort is present. She responded nicely to the IV therapy. Lactate was negative. She has multiple other diagnoses. See HPI above. /[id number] DALY/SUSANNA
== END 2017-07-14 13:37 | disposition home or self-care (01) ==
LOC: FB.ED 11:21
DX: K31.9 Disease of stomach and duodenum, unspecified (principal); E86.0 Dehydration; Z88.0 Allergy status to penicillin
CPT/HCPCS: 36415; 80053; 83605; 85025; 96361; 96374; 96375; 99283; C9113; J1170; J1200; J2765; J7040

== ENCOUNTER 2017-07-17 08:39 | Emergency (ER) | payer MEDICAID ==
[2017-07-17] MEDS ORDERED: Lactated Ringers 1,000 ML IV ONE ×2 (09:02→10:45)
[2017-07-17] MEDS ORDERED: Promethazine 12.5 MG in Sodium Chloride 0.9% 50 ML IV STA (09:03)
[2017-07-17] MEDS ORDERED: Bisacodyl 10 MG Supp RECTAL ONE (09:11)
--- NOTE | 2017-07-17 09:22 | EDM.PDOC ---
ED HPI GENERAL MEDICAL PROBLEM - General Chief Complaint: Abdominal Pain Stated Complaint: STOMACH PAIN Time Seen by Provider: 07/17/17 09:05 Source of Information: Reports: Patient, Old Records History Limitations: Reports: No Limitations - History of Present Illness INITIAL COMMENTS - FREE TEXT/NARRATIVE: 36 yo female was referred from her clinic today due to no available openings for epigastric pain with vomiting. This has been an ongoing problem since at least March of 2017. She is scheduled next week to have upper endoscopy and a CT scan of her abdomen and pelvis to further work this up. So far she has had an Upper GI that showed a possible ulcer and also a likely fistual between the small bowel and the transverse colon. She is on Protonix and Carafate for her ulcer now and has antiemetics at home. The antiemetics are not controlling her nausea. She thinks she may be dehydrated. No fever. No hematemesis. Her last BM was about 2 days ago. No melena or hematochezia. She believes on H. pylori testing has been done. She has had amylase/lipase testing on review of her prior visits that were normal. Onset: Gradual Onset Date: 04/14/17 Duration: Week(s):, Waxing/Waning Location: Reports: Abdomen (epigastric) Quality: Reports: Ache Severity: Moderate Improves with: Reports: None Worsens with: Reports: None Context: Reports: Other (peptic ulcer/fistula) Associated Symptoms: Reports: Nausea/Vomiting. 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: Reports: Other (see below) (Carafate/Protonix/Zofran/Reglan) mid upper abdomen Pain Score (Numeric/FACES): 8 - Related Data Allergies Allergy/AdvReac Type Severity Reaction Status Date / Time Penicillins Allergy Severe Difficulty Verified 07/17/17 08:58 Breathing Home Meds: Home Meds DULoxetine HCl [Cymbalta] 60 mg PO BID 02/09/16 [History] Sucralfate 1 gm PO QIDACANDBED 04/02/16 [History] ARIPiprazole [Abilify] 5 mg PO BEDTIME 04/06/17 [History] Pantoprazole Sodium [Protonix] 40 mg PO DAILY 04/06/17 [History] Metoclopramide HCl 10 mg PO QIDACANDBED 07/10/17 [History] Iron,Carbonyl/Vit C/Vit B12/Fa [Iron 100 Plus Tablet] 1 tab PO DAILY 07/17/17 [ History] Past Medical History - Past Health History Medical/Surgical History: Denies Medical/Surgical History HEENT History: Reports: None Gastrointestinal History: Reports: Cholelithiasis, GERD, PUD, Other (See Below) Other Gastrointestinal History: candy cane rue syndrome, false passage of bowel Genitourinary History: Reports: UTI, 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: 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, Musculoskeletal History: Reports: Fracture Other Musculoskeletal History: fx R wrist, fx L foot Psychiatric History: Reports: Anxiety, Depression, Panic Attack Endocrine/Metabolic History: Reports: Obesity/BMI 30+ Hematologic History: Reports: Anemia, B12 Deficiency, Iron Deficiency - Infectious Disease History Infectious Disease History: Reports: Chicken Pox - Past Surgical History Head Surgeries/Procedures: Reports: None HEENT Surgical History: Reports: Adenoidectomy, Oral Surgery, Tonsillectomy Other HEENT Surgeries/Procedures: 1995 GI Surgical History: Reports: Appendectomy, Bariatric Procedure, Cholecystectomy , EGD Female Surgical History: Reports: Hysterectomy, Oophorectomy, Salpingo- Oophorectomy Musculoskeletal Surgical History: Reports: None Oncologic Surgical History: Reports: Other (See Below) Social & Family History - Family History Family Medical History: Noncontributory - Tobacco Use Smoking Status *Q: Current Every Day Smoker Years of Tobacco use: 20 Packs/Tins Daily: 0.5 Second Hand Smoke Exposure: No - Caffeine Use Caffeine Use: Reports: Coffee Other Caffeine Use: 6 ounces - Alcohol Use Days Per Week of Alcohol Use: 0 - Recreational Drug Use Recreational Drug Use: No Drug Use in Last 12 Months: Yes ED ROS GENERAL - Review of Systems Review Of Systems: See Below Constitutional: Reports: No Symptoms HEENT: Reports: No Symptoms Respiratory: Reports: No Symptoms Cardiovascular: Reports: No Symptoms Endocrine: Reports: No Symptoms GI/Abdominal: Reports: Abdominal Pain, Constipation, Nausea, Vomiting. Denies: Black Stool, Bloody Stool, Diarrhea, Distension, Flatus, Hematemesis, Hematochezia, Melena : Reports: No Symptoms Musculoskeletal: Reports: No Symptoms Skin: Reports: No Symptoms Neurological: Reports: No Symptoms Psychiatric: Reports: No Symptoms ED EXAM, GI/ABD - Physical Exam Exam: See Below Exam Limited By: No Limitations General Appearance: Alert, WD/WN, No Apparent Distress Eyes: Bilateral: Normal Appearance Ears: Normal External Exam, Normal Canal, Hearing Grossly Normal, Normal TMs Nose: Normal Inspection, Normal Mucosa, No Blood Throat/Mouth: Normal Inspection, Normal Lips, Normal Oropharynx, Normal Voice, No Airway Compromise Head: Atraumatic, Normocephalic Neck: Normal Inspection Respiratory/Chest: No Respiratory Distress, Lungs Clear, Normal Breath Sounds, No Accessory Muscle Use Cardiovascular: Regular Rate, Rhythm, No Edema GI/Abdominal Exam: Normal Bowel Sounds, No Distention, Tender (epigastrium) Back Exam: Normal Inspection. No: CVA Tenderness (R), CVA Tenderness (L) Extremities: Normal Inspection, Normal Range of Motion, Non-Tender, No Pedal Edema Neurological: Alert, Oriented, CN II-XII Intact, Normal Cognition, No Motor/ Sensory Deficits Psychiatric: Normal Affect, Normal Mood Skin Exam: Warm, Dry, Intact, Normal Color, No Rash Lymphatic: No Adenopathy Course - Vital Signs Text/Narrative:: Orthostats + LR 1000 ml IV, Promethazine 12.5 mg IV(nausea much better after this), Dilaudid 0.5 mg IV GI cocktail po-no significant change. No voiding after first liter, will give one additional liter of LR [place] 1 po given for a return of her epigastric pain Stool sent to lab for H. pylori stool antigen testing Last Recorded V/S: Last Vital Signs Temp 36.9 C 07/17/17 08:40 Pulse 93 07/17/17 08:40 Resp 17 07/17/17 08:40 BP 113/70 07/17/17 08:40 Pulse Ox 100 07/17/17 08:40 Orthostatic Blood Pressure [ 102/65 Standing] Orthostatic Blood Pressure [ 100/70 Sitting] Orthostatic Blood Pressure [ 111/65 Supine] - Orders/Labs/Meds Orders: Active Orders 24 hr Category Date Time Status Orthostatic Vital Signs [RC] ASDIRECTED Care 07/17/17 09:02 Active HELICOBACTER PYLORI AG, STOOL [REF] Stat Lab 07/17/17 09:11 Ordered Lactated Ringers [Ringers, Lactated] 1,000 ml Med 07/17/17 10:45 Active IV BOLUS Medication Orders Lactated Ringer's (Ringers, Lactated) 1,000 mls @ 1,000 mls/hr IV BOLUS ONE Stop: 07/17/17 11:44 Labs: Laboratory Tests 07/17/17 Range/Units 09:20 Urine Opiates Screen Negative (NEGATIVE) Ur Oxycodone Screen Positive H (NEGATIVE) Ur Propoxyphene Screen Negative (NEGATIVE) Ur Barbituates Screen Negative (NEGATIVE) Ur Tricyclics Screen Negative (NEGATIVE) Ur Phencyclidine Scrn Negative (NEGATIVE) Ur Amphetamine Screen Negative (NEGATIVE) Urine MDMA Screen Negative (NEGATIVE) U Benzodiazepines Scrn Negative (NEGATIVE) U Cocaine Metab Screen Negative (NEGATIVE) U Marijuana (THC) Screen Negative (NEGATIVE) Meds: Medications Generic Name Dose Route Start Last Admin Trade Name Freq PRN Reason Stop Dose Admin Lactated Ringer's 1,000 mls @ 1,000 mls/hr 07/17/17 10:45 Ringers, Lactated IV 07/17/17 11:44 BOLUS ONE Discontinued Medications Generic Name Dose Route Start Last Admin Trade Name Freq PRN Reason Stop Dose Admin Bisacodyl 10 mg 07/17/17 09:11 07/17/17 09:43 Dulcolax RECTAL 07/17/17 09:12 10 mg ONETIME ONE Administration Al Hydroxide/Mg Hydroxide 15 0 ml 07/17/17 10:21 07/17/17 10:25 ml/ Lidocaine HCl 15 ml PO 07/17/17 10:22 30 ml ONETIME ONE Administration Hydromorphone HCl 0.5 mg 07/17/17 09:27 07/17/17 09:43 Dilaudid IVPUSH 07/17/17 09:28 0.5 mg ONETIME ONE Administration Lactated Ringer's 1,000 mls @ 1,000 mls/hr 07/17/17 09:02 07/17/17 09:35 Ringers, Lactated IV 07/17/17 10:01 1,000 mls/hr BOLUS ONE Administration Promethazine HCl 12.5 mg/ 50.5 mls @ 200 mls/hr 07/17/17 09:03 07/17/17 09:42 Sodium Chloride IV 07/17/17 09:18 200 mls/hr NOW STA Administration Departure - Departure Time of Disposition: 12:05 Disposition: Home, Self-Care 01 Condition: Fair Clinical Impression: Peptic ulcer, Fistula, Dehydration Nausea and vomiting Qualifiers: Vomiting type: unspecified Vomiting Intractability: non-intractable Qualified Code(s): R11.2 - Nausea with vomiting, unspecified Constipation Qualifiers: Constipation type: unspecified constipation type Qualified Code(s): K59.00 - Constipation, unspecified - Discharge Information Referrals: Riley Mayer MD [Primary Care Provider] - Forms: ED Department Discharge - My Orders Last 24 Hours: My Active Orders 07/17/17 09:02 Orthostatic Vital Signs [RC] ASDIRECTED 07/17/17 09:11 HELICOBACTER PYLORI AG, STOOL [REF] Stat 07/17/17 10:45 Lactated Ringers [Ringers, Lactated] 1,000 ml IV BOLUS - Assessment/Plan Last 24 Hours: My Active Orders 07/17/17 09:02 Orthostatic Vital Signs [RC] ASDIRECTED 07/17/17 09:11 HELICOBACTER PYLORI AG, STOOL [REF] Stat 07/17/17 10:45 Lactated Ringers [Ringers, Lactated] 1,000 ml IV BOLUS
[2017-07-17] MEDS ORDERED: HYDROmorphone 2 MG/ML SDV IVPUSH ONE (09:27)
[2017-07-17] MEDS ORDERED: Alum Hydroxide/Mag Hydroxide 15 ML, Lidocaine 2% 15 ML PO ONE ×2 (10:21)
[2017-07-17] MEDS ORDERED: Acetaminophen/HYDROcodone 325-5 MG Tab PO ONE (10:55)
[2017-07-17 13:17] VITALS: BP 113/73
== END 2017-07-17 11:45 | disposition home or self-care (01) ==
LOC: FB.ED 08:39
DX: K27.9 Peptic ulcer, site unspecified, unspecified as acute or chronic, without hemorrhage or perforation (principal); K59.00 Constipation, unspecified; L98.8 Other specified disorders of the skin and subcutaneous tissue; E86.0 Dehydration; K21.9 Gastro-esophageal reflux disease without esophagitis; E66.9 Obesity, unspecified; F17.210 Nicotine dependence, cigarettes, uncomplicated; Z88.0 Allergy status to penicillin; Z79.899 Other long term (current) drug therapy
CPT/HCPCS: 80305; 87338; 96361; 96365; 96375; 99283; A9270; J1170; J2550; J7050; J7120; 36415

== ENCOUNTER 2017-07-22 07:59 | Emergency (ER) | payer MEDICAID ==
--- NOTE | 2017-07-22 08:19 | EDM.PDOC ---
ED HPI GENERAL MEDICAL PROBLEM - General Chief Complaint: Abdominal Pain Stated Complaint: NAUSEA Time Seen by Provider: 07/22/17 07:59 Source of Information: Reports: Patient, Family History Limitations: Reports: Other (epigastric pain) - History of Present Illness INITIAL COMMENTS - FREE TEXT/NARRATIVE: 36 y.o.w.f S/P gastric bypass surgery came to the ed with mid upper abd. pain and nausea. Pt takes narcotics for pain at home. Pt had multiple visita for same in this ED. Pt jhas a h/o PUD. She is scheduled for an upper endoscopy this Sunday at [facility]. No trauma. 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 No F/C. BP 103/60 pulse 106 temp 36.6 pulse ox 99% on RA. Onset Date: 07/17/17 Onset Time: 12:13 Duration: Day(s):, Getting Worse, Intermittent Location: Reports: Abdomen Quality: Reports: Ache, Burning, Dull, Pressure, Same as Previous Episode, Stabbing, Throbbing Severity: Moderate Improves with: Reports: Medication (dilaudid only) Context: Reports: Other (gastric bypass) Associated Symptoms: Reports: Nausea/Vomiting Treatments HEDDLE MACHINE OPERATOR: Reports: Other (see below) (narcotics) mid upper abdomen Pain Score (Numeric/FACES): 7 - Related Data Allergies Allergy/AdvReac Type Severity Reaction Status Date / Time Penicillins Allergy Severe Difficulty Verified 07/22/17 08:14 Breathing Home Meds: Home Meds DULoxetine HCl [Cymbalta] 60 mg PO BID 02/09/16 [History] Sucralfate 1 gm PO QIDACANDBED 04/02/16 [History] ARIPiprazole [Abilify] 5 mg PO BEDTIME 04/06/17 [History] Pantoprazole Sodium [Protonix] 40 mg PO DAILY 04/06/17 [History] Metoclopramide HCl 10 mg PO QIDACANDBED 07/10/17 [History] Hydrocodone/Acetaminophen [Vicodin 5-300 mg Tablet] 1 tab PO Q4H PRN #14 tablet 07/17/17 [Rx] Iron,Carbonyl/Vit C/Vit B12/Fa [Iron 100 Plus Tablet] 1 tab PO DAILY 07/17/17 [ History] Promethazine [Phenadoz] 25 mg RECTAL Q6H PRN #10 supp 07/17/17 [Rx] Past Medical History - Past Health History Medical/Surgical History: Denies Medical/Surgical History HEENT History: Reports: None Gastrointestinal History: Reports: Cholelithiasis, GERD, PUD, Other (See Below) Other Gastrointestinal History: candy cane rue syndrome, false passage of bowel Genitourinary History: Reports: UTI, 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: 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, Musculoskeletal History: Reports: Fracture Other Musculoskeletal History: fx R wrist, fx L foot Psychiatric History: Reports: Anxiety, Depression, Panic Attack Endocrine/Metabolic History: Reports: Obesity/BMI 30+ Hematologic History: Reports: Anemia, B12 Deficiency, Iron Deficiency - Infectious Disease History Infectious Disease History: Reports: Chicken Pox - Past Surgical History Head Surgeries/Procedures: Reports: None HEENT Surgical History: Reports: Adenoidectomy, Oral Surgery, Tonsillectomy Other HEENT Surgeries/Procedures: 1995 GI Surgical History: Reports: Appendectomy, Bariatric Procedure, Cholecystectomy , EGD Female Surgical History: Reports: Hysterectomy, Oophorectomy, Salpingo- Oophorectomy Musculoskeletal Surgical History: Reports: None Oncologic Surgical History: Reports: Other (See Below) Social & Family History - Family History Family Medical History: Noncontributory - Tobacco Use Smoking Status *Q: Current Every Day Smoker Years of Tobacco use: 20 Packs/Tins Daily: 0.5 Second Hand Smoke Exposure: No - Caffeine Use Caffeine Use: Reports: Coffee Other Caffeine Use: 6 ounces - Alcohol Use Days Per Week of Alcohol Use: 0 - Recreational Drug Use Recreational Drug Use: No Drug Use in Last 12 Months: Yes ED ROS GENERAL - Review of Systems Review Of Systems: See Below Constitutional: Reports: No Symptoms HEENT: Reports: No Symptoms Respiratory: Reports: No Symptoms Cardiovascular: Reports: No Symptoms Endocrine: Reports: No Symptoms GI/Abdominal: Reports: Abdominal Pain (epigastic) : Reports: No Symptoms Musculoskeletal: Reports: No Symptoms Skin: Reports: No Symptoms Neurological: Reports: No Symptoms Psychiatric: Reports: No Symptoms Hematologic/Lymphatic: Reports: No Symptoms Immunologic: Reports: No Symptoms ED EXAM, GI/ABD - Physical Exam Exam: See Below Exam Limited By: No Limitations General Appearance: Alert, WD/WN, Mild Distress Eyes: Bilateral: Normal Appearance Ears: Normal External Exam Nose: Normal Inspection Throat/Mouth: Normal Inspection Head: Atraumatic, Normocephalic Neck: Normal Inspection, Supple, Non-Tender, Full Range of Motion Respiratory/Chest: No Respiratory Distress, Lungs Clear, Normal Breath Sounds, No Accessory Muscle Use, Chest Non-Tender Cardiovascular: Normal Peripheral Pulses, Regular Rate, Rhythm, No Edema, No Gallop, No Murmur, No Rub GI/Abdominal Exam: Tender (epigastric tenderness) (Female) Exam: Deferred Rectal (Female) Exam: Deferred Back Exam: Normal Inspection, Full Range of Motion Extremities: Normal Inspection, Normal Range of Motion, Non-Tender, No Pedal Edema, Normal Capillary Refill Neurological: Alert, Oriented, CN II-XII Intact, Normal Cognition, Normal Gait Psychiatric: Normal Affect, Normal Mood Skin Exam: Warm, Intact, Normal Color, No Rash Lymphatic: No Adenopathy Course - Vital Signs Text/Narrative:: 36 y.o.w.f S/P gastric bypass surgery came to the ed with mid upper abd. pain and nausea. Pt takes narcotics for pain at home. Pt had multiple visita for same in this ED. Pt jhas a h/o PUD. She is scheduled for an upper endoscopy this Sunday at [facility]. No trauma. 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 BP 103/60 pulse 106 temp 36.6 pulse ox 99% on RA. PE: WNWD W F with excruciating epigastric pain. Pos for epigastric tenderness Labs: CBC and BMP were nl LFTs were mildly elevated. UA neg Imaging: CT abd/pelvis: NAD, identical with her last Exam Impression: Epicastric pain, cause not determined Tx: Toradol, Protronix, Zofran. Pt was told this is the last does of Dilaudid ( 0.5mg) i will order unless and cause of her abd. pain is found 10.33 am: Consultation: Dr. Olmos, Surgeon, [facility]: The physical findings do not match the pt's pain symptoms: He will set the patient up with the pain clinic this Sunday. Reexam: Improved Plan: D/C with instructions Last Recorded V/S: Last Vital Signs Temp 36.8 C 07/22/17 08:15 Pulse 92 07/22/17 11:35 Resp 17 07/22/17 08:15 BP 109/63 07/22/17 11:35 Pulse Ox 100 07/22/17 08:15 - Orders/Labs/Meds Orders: Active Orders 24 hr Category Date Time Status Abdomen Pelvis wo Cont [CT] Stat Exams 07/22/17 09:23 Taken Labs: Laboratory Tests 07/22/17 07/22/17 07/22/17 Range/Units 08:35 08:35 08:35 WBC 5.2 (4.5-12.0) X10-3/uL RBC 4.25 (3.23-5.20) x10(6)uL Hgb 12.9 (11.5-15.5) g/dL Hct 38.4 (30.0-51.3) % MCV 90.4 (80-96) fL MCH 30.5 (27.7-33.6) pg MCHC 33.7 (32.2-35.4) g/dL RDW 12.8 (11.5-15.5) % Plt Count 325 (125-369) X10(3)uL MPV 8.5 (7.4-10.4) fL Neut % (Auto) 53.5 (46-82) % Lymph % (Auto) 36.1 (13-37) % Rosebud % (Auto) 7.9 (4-12) % Eos % (Auto) 2 (1.0-5.0) % Baso % (Auto) 1 (0-2) % Neut # (Auto) 2.8 (1.6-8.3) # Lymph # (Auto) 1.9 (0.6-5.0) # Rosebud # (Auto) 0.4 (0.0-1.3) # Eos # (Auto) 0.1 (0.0-0.8) # Baso # (Auto) 0.0 (0.0-0.2) # PT 11.1 (8.7-11.1) INR 1.10 (0.89-1.13) Sodium 140 (135-145) mmol/L Potassium 3.9 (3.5-5.3) mmol/L Chloride 104 (100-110) mmol/L Carbon Dioxide 30 (21-32) mmol/L BUN 7 (7-18) mg/dL Creatinine 0.7 (0.55-1.02) mg/dL Est Cr Clr Drug Dosing 88.72 mL/min Estimated GFR (MDRD) > 60 (>60) BUN/Creatinine Ratio 10.0 (9-20) Glucose 72 L (80-116) mg/dL Calcium 8.6 (8.6-10.2) mg/dL Total Bilirubin (0.1-1.3) mg/dL Direct Bilirubin (0.10-0.20) mg/dL AST (5-25) IU/L ALT (12-36) U/L Alkaline Phosphatase (56-112) IU/L Total Protein (6.0-8.0) g/dL Albumin (3.5-5.2) g/dL Vitamin B12 (193-986) pg/mL Urine Color (YELLOW) Urine Appearance (CLEAR) Urine pH (5.0-6.5) Ur Specific Swiss (1.010-1.025) Urine Protein (NEGATIVE) mg/dL Urine Glucose (UA) (NEGATIVE) mg/dL Urine Ketones (NEGATIVE) mg/dL Urine Occult Blood (NEGATIVE) Urine Nitrite (NEGATIVE) Urine Bilirubin (NEGATIVE) Urine Urobilinogen (NEGATIVE) mg/dL Ur Leukocyte Esterase (NEGATIVE) Urine WBC (0) Ur Squamous Epith Cells (NS,R,O) Urine Bacteria (NS) Urine Opiates Screen (NEGATIVE) Ur Oxycodone Screen (NEGATIVE) Ur Propoxyphene Screen (NEGATIVE) Ur Barbituates Screen (NEGATIVE) Ur Tricyclics Screen (NEGATIVE) Ur Phencyclidine Scrn (NEGATIVE) Ur Amphetamine Screen (NEGATIVE) Urine MDMA Screen (NEGATIVE) U Benzodiazepines Scrn (NEGATIVE) U Cocaine Metab Screen (NEGATIVE) U Marijuana (THC) Screen (NEGATIVE) 07/22/17 07/22/17 07/22/17 Range/Units 08:35 08:35 09:30 WBC (4.5-12.0) X10-3/uL RBC (3.23-5.20) x10(6)uL Hgb (11.5-15.5) g/dL Hct (30.0-51.3) % MCV (80-96) fL MCH (27.7-33.6) pg MCHC (32.2-35.4) g/dL RDW (11.5-15.5) % Plt Count (125-369) X10(3)uL MPV (7.4-10.4) fL Neut % (Auto) (46-82) % Lymph % (Auto) (13-37) % Rosebud % (Auto) (4-12) % Eos % (Auto) (1.0-5.0) % Baso % (Auto) (0-2) % Neut # (Auto) (1.6-8.3) # Lymph # (Auto) (0.6-5.0) # Rosebud # (Auto) (0.0-1.3) # Eos # (Auto) (0.0-0.8) # Baso # (Auto) (0.0-0.2) # PT (8.7-11.1) INR (0.89-1.13) Sodium (135-145) mmol/L Potassium (3.5-5.3) mmol/L Chloride (100-110) mmol/L Carbon Dioxide (21-32) mmol/L BUN (7-18) mg/dL Creatinine (0.55-1.02) mg/dL Est Cr Clr Drug Dosing mL/min Estimated GFR (MDRD) (>60) BUN/Creatinine Ratio (9-20) Glucose (80-116) mg/dL Calcium (8.6-10.2) mg/dL Total Bilirubin 0.2 (0.1-1.3) mg/dL Direct Bilirubin 0.08 L (0.10-0.20) mg/dL AST 29 H (5-25) IU/L ALT 48 H D (12-36) U/L Alkaline Phosphatase 145 H (56-112) IU/L Total Protein 6.0 (6.0-8.0) g/dL Albumin 3.2 L (3.5-5.2) g/dL Vitamin B12 1111 H (193-986) pg/mL Urine Color Yellow (YELLOW) Urine Appearance Clear (CLEAR) Urine pH 8.0 H (5.0-6.5) Ur Specific Swiss 1.015 (1.010-1.025) Urine Protein Negative (NEGATIVE) mg/dL Urine Glucose (UA) Normal (NEGATIVE) mg/dL Urine Ketones Negative (NEGATIVE) mg/dL Urine Occult Blood Negative (NEGATIVE) Urine Nitrite Negative (NEGATIVE) Urine Bilirubin Negative (NEGATIVE) Urine Urobilinogen Normal (NEGATIVE) mg/dL Ur Leukocyte Esterase Negative (NEGATIVE) Urine WBC 0-5 (0) Ur Squamous Epith Cells Few H (NS,R,O) Urine Bacteria Few H (NS) Urine Opiates Screen (NEGATIVE) Ur Oxycodone Screen (NEGATIVE) Ur Propoxyphene Screen (NEGATIVE) Ur Barbituates Screen (NEGATIVE) Ur Tricyclics Screen (NEGATIVE) Ur Phencyclidine Scrn (NEGATIVE) Ur Amphetamine Screen (NEGATIVE) Urine MDMA Screen (NEGATIVE) U Benzodiazepines Scrn (NEGATIVE) U Cocaine Metab Screen (NEGATIVE) U Marijuana (THC) Screen (NEGATIVE) 07/22/17 Range/Units 09:30 WBC (4.5-12.0) X10-3/uL RBC (3.23-5.20) x10(6)uL Hgb (11.5-15.5) g/dL Hct (30.0-51.3) % MCV (80-96) fL MCH (27.7-33.6) pg MCHC (32.2-35.4) g/dL RDW (11.5-15.5) % Plt Count (125-369) X10(3)uL MPV (7.4-10.4) fL Neut % (Auto) (46-82) % Lymph % (Auto) (13-37) % Rosebud % (Auto) (4-12) % Eos % (Auto) (1.0-5.0) % Baso % (Auto) (0-2) % Neut # (Auto) (1.6-8.3) # Lymph # (Auto) (0.6-5.0) # Rosebud # (Auto) (0.0-1.3) # Eos # (Auto) (0.0-0.8) # Baso # (Auto) (0.0-0.2) # PT (8.7-11.1) INR (0.89-1.13) Sodium (135-145) mmol/L Potassium (3.5-5.3) mmol/L Chloride (100-110) mmol/L Carbon Dioxide (21-32) mmol/L BUN (7-18) mg/dL Creatinine (0.55-1.02) mg/dL Est Cr Clr Drug Dosing mL/min Estimated GFR (MDRD) (>60) BUN/Creatinine Ratio (9-20) Glucose (80-116) mg/dL Calcium (8.6-10.2) mg/dL Total Bilirubin (0.1-1.3) mg/dL Direct Bilirubin (0.10-0.20) mg/dL AST (5-25) IU/L ALT (12-36) U/L Alkaline Phosphatase (56-112) IU/L Total Protein (6.0-8.0) g/dL Albumin (3.5-5.2) g/dL Vitamin B12 (193-986) pg/mL Urine Color (YELLOW) Urine Appearance (CLEAR) Urine pH (5.0-6.5) Ur Specific Swiss (1.010-1.025) Urine Protein (NEGATIVE) mg/dL Urine Glucose (UA) (NEGATIVE) mg/dL Urine Ketones (NEGATIVE) mg/dL Urine Occult Blood (NEGATIVE) Urine Nitrite (NEGATIVE) Urine Bilirubin (NEGATIVE) Urine Urobilinogen (NEGATIVE) mg/dL Ur Leukocyte Esterase (NEGATIVE) Urine WBC (0) Ur Squamous Epith Cells (NS,R,O) Urine Bacteria (NS) Urine Opiates Screen Negative (NEGATIVE) Ur Oxycodone Screen Negative (NEGATIVE) Ur Propoxyphene Screen Negative (NEGATIVE) Ur Barbituates Screen Negative (NEGATIVE) Ur Tricyclics Screen Negative (NEGATIVE) Ur Phencyclidine Scrn Negative (NEGATIVE) Ur Amphetamine Screen Negative (NEGATIVE) Urine MDMA Screen Negative (NEGATIVE) U Benzodiazepines Scrn Negative (NEGATIVE) U Cocaine Metab Screen Negative (NEGATIVE) U Marijuana (THC) Screen Negative (NEGATIVE) Meds: Medications Discontinued Medications Generic Name Dose Route Start Last Admin Trade Name Freq PRN Reason Stop Dose Admin Hydromorphone HCl 0.5 mg 07/22/17 11:18 07/22/17 11:25 Dilaudid IVPUSH 07/22/17 11:19 0.5 mg ONETIME ONE Administration Sodium Chloride 1,000 mls @ 999 mls/hr 07/22/17 08:22 07/22/17 08:30 Normal Saline IV 07/22/17 09:22 999 mls/hr .BOLUS ONE Administration Promethazine HCl 12.5 mg/ 50.5 mls @ 200 mls/hr 07/22/17 09:16 07/22/17 09:21 Sodium Chloride IV 07/22/17 09:31 200 mls/hr ONETIME ONE Administration Ketorolac Tromethamine 30 mg 07/22/17 09:05 07/22/17 09:20 Toradol IVPUSH 07/22/17 09:06 30 mg ONETIME ONE Administration Ondansetron HCl 8 mg 07/22/17 08:26 07/22/17 08:33 Zofran IVPUSH 07/22/17 08:27 8 mg ONETIME ONE Administration Pantoprazole Sodium 40 mg 07/22/17 08:27 07/22/17 08:33 Protonix Iv IVPUSH 07/22/17 08:28 40 mg ONETIME ONE Administration Departure - Departure Time of Disposition: 11:20 Disposition: Home, Self-Care 01 Condition: Good Clinical Impression: Abdominal pain Qualifiers: Abdominal location: epigastric Qualified Code(s): R10.13 - Epigastric pain - Discharge Information Referrals: Riley Mayer MD [Primary Care Provider] - Forms: ED Department Discharge Additional Instructions: Please f/u with Dr. Olmos as scheduled for this Sunday to be set up for pain clinic. Your pain is out of proportion of your clinical findings. Please quit tobacco use. - My Orders Last 24 Hours: My Active Orders 07/22/17 09:23 Abdomen Pelvis wo Cont [CT] Stat - Assessment/Plan Last 24 Hours: My Active Orders 07/22/17 09:23 Abdomen Pelvis wo Cont [CT] Stat
[2017-07-22] MEDS ORDERED: Sodium Chloride 0.9% 1,000 ML IV ONE (08:22)
[2017-07-22] MEDS ORDERED: Ondansetron 4 MG/2 ML SDV IVPUSH ONE (08:26)
[2017-07-22] MEDS ORDERED: Pantoprazole 40 MG Vial IVPUSH ONE (08:27)
[2017-07-22] MEDS ORDERED: Ketorolac 30 MG/ML SDV IVPUSH ONE (09:05)
[2017-07-22] MEDS ORDERED: Promethazine 12.5 MG in Sodium Chloride 0.9% 50 ML IV ONE (09:16)
[2017-07-22] MEDS ORDERED: HYDROmorphone 2 MG/ML SDV IVPUSH ONE (11:18)
[2017-07-22 11:37] VITALS: BP 109/63
== END 2017-07-22 11:35 | disposition home or self-care (01) ==
LOC: FB.ED 07:59
DX: R10.13 Epigastric pain (principal); F17.210 Nicotine dependence, cigarettes, uncomplicated; Z88.0 Allergy status to penicillin; Z90.49 Acquired absence of other specified parts of digestive tract
CPT/HCPCS: 36415; 74176; 80048; 80076; 80305; 81001; 82607; 85025; 85610; 96361; 96374; 96375; 99284; C9113; J1170; J1885; J2405; J2550; J7040; J7050

== ENCOUNTER 2017-09-02 10:31 | Emergency (ER) | payer MEDICAID ==
[2017-09-02] MEDS ORDERED: Sodium Chloride 0.9% 1,000 ML IV ONE ×2 (10:58→12:08)
[2017-09-02] MEDS ORDERED: Ondansetron 4 MG/2 ML SDV IVPUSH ONE (10:59)
[2017-09-02] MEDS ORDERED: Pantoprazole 40 MG in Sodium Chloride 0.9% 100 ML IV STA (11:00)
[2017-09-02] MEDS ORDERED: Sodium Chloride 0.9% 10 ML Syringe FLUSH PRN (11:01)
--- NOTE | 2017-09-02 11:05 | EDM.PDOC ---
ED HPI GENERAL MEDICAL PROBLEM - General Chief Complaint: Gastrointestinal Problem Stated Complaint: VOMITTING, PAIN, WEAKNESS Time Seen by Provider: 09/02/17 10:47 Source of Information: Reports: Patient, Family History Limitations: Reports: No Limitations - History of Present Illness INITIAL COMMENTS - FREE TEXT/NARRATIVE: 37 years old w f with multiple visits to this ED for abd pain, requesting Dilaudid. Pt stated, she was seen by her GI specialist. She was diagnosed with a LESS and was dilated recently. She had another procedure plant for last . She did not show up for her appointment. Pt stated she was vomiting 30 times in the past 2 days, unable to bring any food down. As per , she was advised to drink clear liquid only. Pt denied trauma. Pt was swearing during her HPI. No pother acute medical issues. 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, NSAIDS Abdomen Pain Score (Numeric/FACES): 10 - Related Data Allergies Allergy/AdvReac Type Severity Reaction Status Date / Time Penicillins Allergy Severe Difficulty Verified 09/02/17 10:46 Breathing Home Meds: Home Meds DULoxetine HCl [Cymbalta] 60 mg PO BID 02/09/16 [History] Sucralfate 1 gm PO QIDACANDBED 04/02/16 [History] ARIPiprazole [Abilify] 5 mg PO BEDTIME 04/06/17 [History] Pantoprazole Sodium [Protonix] 40 mg PO DAILY 04/06/17 [History] Metoclopramide HCl 10 mg PO QIDACANDBED 07/10/17 [History] Hydrocodone/Acetaminophen [Vicodin 5-300 mg Tablet] 1 tab PO Q4H PRN #14 tablet 07/17/17 [Rx] Iron,Carbonyl/Vit C/Vit B12/Fa [Iron 100 Plus Tablet] 1 tab PO DAILY 07/17/17 [ History] Promethazine [Phenadoz] 25 mg RECTAL Q6H PRN #10 supp 07/17/17 [Rx] Ondansetron [Zofran ODT] 4 mg PO Q6H PRN #20 tab.dis 09/02/17 [Rx] Past Medical History - Past Health History Medical/Surgical History: Denies Medical/Surgical History HEENT History: Reports: None Gastrointestinal History: Reports: Cholelithiasis, GERD, PUD, Other (See Below) Other Gastrointestinal History: candy cane rue syndrome, false passage of bowel Genitourinary History: Reports: UTI, 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: 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, Musculoskeletal History: Reports: Fracture, Other (See Below) Other Musculoskeletal History: fx R wrist, fx L foot Psychiatric History: Reports: Anxiety, Depression, Panic Attack Endocrine/Metabolic History: Reports: Obesity/BMI 30+ Hematologic History: Reports: Anemia, B12 Deficiency, Iron Deficiency - Infectious Disease History Infectious Disease History: Reports: Chicken Pox - Past Surgical History Head Surgeries/Procedures: Reports: None HEENT Surgical History: Reports: Adenoidectomy, Oral Surgery, Tonsillectomy, Other (See Below) Other HEENT Surgeries/Procedures: 1995 GI Surgical History: Reports: Appendectomy, Bariatric Procedure, Cholecystectomy , EGD Female Surgical History: Reports: Hysterectomy, Oophorectomy, Salpingo- Oophorectomy Musculoskeletal Surgical History: Reports: None Social & Family History - Family History Family Medical History: Noncontributory - Tobacco Use Smoking Status *Q: Current Every Day Smoker Years of Tobacco use: 20 Packs/Tins Daily: 0.5 Second Hand Smoke Exposure: No - Caffeine Use Caffeine Use: Reports: None Other Caffeine Use: 6 ounces - Alcohol Use Days Per Week of Alcohol Use: 0 - Recreational Drug Use Recreational Drug Use: No Drug Use in Last 12 Months: Yes ED ROS GENERAL - Review of Systems Review Of Systems: See Below Constitutional: Reports: No Symptoms HEENT: Reports: No Symptoms Respiratory: Reports: No Symptoms Cardiovascular: Reports: No Symptoms Endocrine: Reports: No Symptoms GI/Abdominal: Reports: Abdominal Pain : Reports: No Symptoms Musculoskeletal: Reports: No Symptoms Skin: Reports: No Symptoms Neurological: Reports: No Symptoms Psychiatric: Reports: No Symptoms Hematologic/Lymphatic: Reports: No Symptoms Immunologic: Reports: No Symptoms ED EXAM, GI/ABD - Physical Exam Exam: See Below Exam Limited By: No Limitations General Appearance: Alert, WD/WN, Mild Distress Eyes: Bilateral: Normal Appearance Ears: Normal External Exam Nose: Normal Inspection Throat/Mouth: Normal Inspection, Normal Lips Head: Atraumatic, Normocephalic Neck: Normal Inspection, Supple, Non-Tender, Full Range of Motion Respiratory/Chest: No Respiratory Distress, Lungs Clear, Normal Breath Sounds Cardiovascular: Normal Peripheral Pulses, Regular Rate, Rhythm, No Edema, No Gallop GI/Abdominal Exam: Normal Bowel Sounds, No Organomegaly, Tender (epigastric tenderness) (Female) Exam: Deferred Rectal (Female) Exam: Deferred Back Exam: Normal Inspection Extremities: Normal Inspection, Normal Range of Motion Neurological: Alert, Oriented, CN II-XII Intact, Normal Cognition, Normal Gait, No Motor/Sensory Deficits Psychiatric: Normal Affect, Depressed Mood Skin Exam: Warm, Dry, Intact, Normal Color, No Rash Lymphatic: No Adenopathy Course - Vital Signs Text/Narrative:: 37 years old w f with multiple visits to this ED for abd pain, requesting Dilaudid. Pt stated, she was seen by her GI specialist. She was diagnosed with a LESS and was dilated recently. She had another procedure plant for last . She did not show up for her appointment. Pt stated she was vomiting 30 times in the past 2 days, unable to bring any food down. As per , she was advised to drink clear liquid only. Pt denied trauma. Pt was swearing during her HPI. No pother acute medical issues. BP 110/60 Pulse 87 RR 18 Pulse ox 100% on RA Temp 36.8 PE: 37 y.o.w.f with multiple visits to this ED. H/O LESS, not reliable with scheduled appointments, N/V, angry, appears she is urging herself to vomit. Imaging: Not indicated Labs: CBC, BMP UA nl. BUN/Cr ratio elevated to 23.3 Impession: lower Esophageal sphincter stenosis, Dehydration, epigastric pain, not reliable with appointments 11.02 am Consultation: JOSEPH James: Pt has drug seeking behaviour, has 12 mm stricture at her lower esophagus, missed appointment last , knows what to say to get narcotics. ^The pain she shows is most likely not related to her LESS. Dr. Olmos can see her this Sunday, pt should call first. Tx: Zofran, Reglan, GI cocktail, Protonix, NS Reexam: Pt improved, nausea subsided completely, Pain improved as well. she did not ask for painmeds on D/C Plan: D/C with instructions Last Recorded V/S: Last Vital Signs Temp 36.7 C 09/02/17 10:47 Pulse 81 09/02/17 13:21 Resp 14 09/02/17 13:21 BP 95/59 L 09/02/17 13:21 Pulse Ox 98 09/02/17 13:21 - Orders/Labs/Meds Orders: Active Orders 24 hr Category Date Time Status Saline Lock Insert [OM.PC] Routine Oth 09/02/17 11:01 Ordered Labs: Laboratory Tests 09/02/17 09/02/17 Range/Units 11:07 11:07 WBC 6.1 (4.5-12.0) X10-3/uL RBC 4.18 (3.23-5.20) x10(6)uL Hgb 13.1 (11.5-15.5) g/dL Hct 38.3 (30.0-51.3) % MCV 91.7 (80-96) fL MCH 31.3 (27.7-33.6) pg MCHC 34.1 (32.2-35.4) g/dL RDW 12.7 (11.5-15.5) % Plt Count 311 (125-369) X10(3)uL MPV 9.0 (7.4-10.4) fL Neut % (Auto) 63.3 (46-82) % Lymph % (Auto) 31.2 (13-37) % Gila % (Auto) 4.2 (4-12) % Eos % (Auto) 1 (1.0-5.0) % Baso % (Auto) 1 (0-2) % Neut # (Auto) 3.9 (1.6-8.3) # Lymph # (Auto) 1.9 (0.6-5.0) # Gila # (Auto) 0.3 (0.0-1.3) # Eos # (Auto) 0.0 (0.0-0.8) # Baso # (Auto) 0.0 (0.0-0.2) # Sodium 143 (135-145) mmol/L Potassium 3.5 (3.5-5.3) mmol/L Chloride 104 (100-110) mmol/L Carbon Dioxide 32 (21-32) mmol/L BUN 14 (7-18) mg/dL Creatinine 0.6 (0.55-1.02) mg/dL Est Cr Clr Drug Dosing 107.23 mL/min Estimated GFR (MDRD) > 60 (>60) BUN/Creatinine Ratio 23.3 H (9-20) Glucose 91 (80-116) mg/dL Calcium 9.0 (8.6-10.2) mg/dL Meds: Medications Discontinued Medications Generic Name Dose Route Start Last Admin Trade Name Freq PRN Reason Stop Dose Admin Al Hydroxide/Mg Hydroxide 15 0 ml 09/02/17 11:27 09/02/17 11:33 ml/ Lidocaine HCl 15 ml PO 09/02/17 11:28 15 ml ONETIME ONE Administration Sodium Chloride 1,000 mls @ 999 mls/hr 09/02/17 10:58 09/02/17 11:13 Normal Saline IV 09/02/17 11:58 999 mls/hr .BOLUS ONE Administration Sodium Chloride 1,000 mls @ 999 drops/hr 09/02/17 12:08 09/02/17 12:13 Normal Saline IV 09/03/17 03:08 999 drops/hr .BOLUS ONE Administration Metoclopramide HCl 10 mg 09/02/17 11:46 09/02/17 12:04 Reglan IV 09/02/17 11:47 10 mg ONETIME STA Administration Ondansetron HCl 8 mg 09/02/17 10:59 09/02/17 11:15 Zofran IVPUSH 09/02/17 11:00 8 mg ONETIME ONE Administration Pantoprazole Sodium 40 mg 09/02/17 11:12 09/02/17 11:22 Protonix Iv IVPUSH 09/02/17 11:13 40 mg ONETIME ONE Administration Sodium Chloride 10 ml 09/02/17 11:01 09/02/17 11:14 Saline Flush FLUSH 10 ml ASDIRECTED PRN Administration Keep Vein Open Departure - Departure Time of Disposition: 13:11 Disposition: Home, Self-Care 01 Condition: Good Clinical Impression: Esophageal abnormality - Discharge Information Prescriptions: Ondansetron [Zofran ODT] 4 mg PO Q6H PRN #20 tab.dis PRN Reason: Nausea Instructions: Ondansetron oral dissolving tablet Referrals: Riley Mayer MD [Primary Care Provider] - Forms: ED Department Discharge Additional Instructions: Please take the Nausea meds as recommended, please follow up with Dr. Olmos this Sunday. Please come back if your symptoms get worse acutely. - My Orders Last 24 Hours: My Active Orders 09/02/17 11:01 Saline Lock Insert [OM.PC] Routine - Assessment/Plan Last 24 Hours: My Active Orders 09/02/17 11:01 Saline Lock Insert [OM.PC] Routine
[2017-09-02] MEDS ORDERED: Pantoprazole 40 MG Vial IVPUSH ONE (11:12)
[2017-09-02] MEDS ORDERED: Alum Hydroxide/Mag Hydroxide 15 ML, Lidocaine 2% 15 ML PO ONE ×2 (11:27)
[2017-09-02] MEDS ORDERED: Metoclopramide 10 MG/2 ML SDV IV STA (11:46)
[2017-09-02 13:22] VITALS: BP 95/59
== END 2017-09-02 13:22 | disposition home or self-care (01) ==
LOC: FB.ED 10:31
DX: K22.2 Esophageal obstruction (principal); E86.0 Dehydration; R10.13 Epigastric pain; F17.210 Nicotine dependence, cigarettes, uncomplicated; K21.9 Gastro-esophageal reflux disease without esophagitis; Z79.899 Other long term (current) drug therapy; Z88.0 Allergy status to penicillin
CPT/HCPCS: 36415; 80048; 85025; 96361; 96374; 96375; 99284; A9270; C9113; J2405; J2765; J7040; J7050; J7030

== ENCOUNTER 2017-09-03 10:56 | Emergency (ER) | payer MEDICAID ==
[2017-09-03] MEDS ORDERED: Metoclopramide 10 MG/2 ML SDV IV STA (11:24)
--- NOTE | 2017-09-03 11:24 | EDM.PDOC ---
ED HPI GENERAL MEDICAL PROBLEM - General Chief Complaint: General Stated Complaint: WEAKNESS Time Seen by Provider: 09/03/17 10:56 Source of Information: Reports: Patient, Family () History Limitations: Reports: No Limitations - History of Present Illness INITIAL COMMENTS - FREE TEXT/NARRATIVE: 37 y.o.w.f with a H/O LESS (lower esophageal sphincter stenosis), H/O drug seeking behaviour, multiple visits in this ED, came with her SO to the ED for epigastric pain.Pt was seen yesterday for same. Please see the report from 2017. As per Dr. Olmos, GI, the pain she is presenting is not ralated to her LESS, he did no recommended any narcotics. Pt denied any other acute medical issues. BP 103/72 RR 18 Pulse Ox 100% Temp 36.8 Onset Date: 09/03/17 Onset Time: 06:00 Duration: Hour(s): Location: Reports: Abdomen Quality: Reports: Burning, Dull Severity: Mild Improves with: Reports: Medication Worsens with: Reports: Movement Context: Reports: Other (Pt has a LESS, please see my report from 09/02/2017) Associated Symptoms: Reports: Nausea/Vomiting - Related Data Allergies Allergy/AdvReac Type Severity Reaction Status Date / Time Penicillins Allergy Severe Difficulty Verified 09/03/17 11:38 Breathing Home Meds: Home Meds DULoxetine HCl [Cymbalta] 60 mg PO BID 02/09/16 [History] Sucralfate 1 gm PO QIDACANDBED 04/02/16 [History] ARIPiprazole [Abilify] 5 mg PO BEDTIME 04/06/17 [History] Pantoprazole Sodium [Protonix] 40 mg PO DAILY 04/06/17 [History] Metoclopramide HCl 10 mg PO QIDACANDBED 07/10/17 [History] Iron,Carbonyl/Vit C/Vit B12/Fa [Iron 100 Plus Tablet] 1 tab PO DAILY 07/17/17 [ History] Promethazine [Phenadoz] 25 mg RECTAL Q6H PRN #10 supp 07/17/17 [Rx] Ondansetron [Zofran ODT] 4 mg PO Q6H PRN #20 tab.dis 09/02/17 [Rx] Past Medical History - Past Health History Medical/Surgical History: Denies Medical/Surgical History HEENT History: Reports: None Gastrointestinal History: Reports: Cholelithiasis, GERD, PUD, Other (See Below) Other Gastrointestinal History: candy cane rue syndrome, false passage of bowel Genitourinary History: Reports: UTI, Recurrent EHS SPECIALIST History: Reports: 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, Musculoskeletal History: Reports: Fracture, Other (See Below) Other Musculoskeletal History: fx R wrist, fx L foot Psychiatric History: Reports: Anxiety, Depression, Panic Attack Endocrine/Metabolic History: Reports: Obesity/BMI 30+ Hematologic History: Reports: Anemia, B12 Deficiency, Iron Deficiency - Infectious Disease History Infectious Disease History: Reports: Chicken Pox - Past Surgical History Head Surgeries/Procedures: Reports: None HEENT Surgical History: Reports: Adenoidectomy, Oral Surgery, Tonsillectomy, Other (See Below) Other HEENT Surgeries/Procedures: 1995 GI Surgical History: Reports: Appendectomy, Bariatric Procedure, Cholecystectomy , EGD Female Surgical History: Reports: Hysterectomy, Oophorectomy, Salpingo- Oophorectomy Musculoskeletal Surgical History: Reports: None Social & Family History - Family History Family Medical History: Noncontributory - Tobacco Use Smoking Status *Q: Current Every Day Smoker Years of Tobacco use: 20 Packs/Tins Daily: 0.5 Second Hand Smoke Exposure: No - Caffeine Use Caffeine Use: Reports: None Other Caffeine Use: 6 ounces - Alcohol Use Days Per Week of Alcohol Use: 0 - Recreational Drug Use Recreational Drug Use: No Drug Use in Last 12 Months: Yes ED ROS GENERAL - Review of Systems Review Of Systems: See Below Constitutional: Reports: No Symptoms HEENT: Reports: No Symptoms Respiratory: Reports: No Symptoms Cardiovascular: Reports: No Symptoms Endocrine: Reports: No Symptoms GI/Abdominal: Reports: Abdominal Pain (epic) : Reports: No Symptoms Musculoskeletal: Reports: No Symptoms Skin: Reports: No Symptoms Neurological: Reports: No Symptoms Psychiatric: Reports: No Symptoms Hematologic/Lymphatic: Reports: No Symptoms Immunologic: Reports: No Symptoms ED EXAM, GENERAL - Physical Exam Exam: See Below Exam Limited By: No Limitations General Appearance: Alert, WD/WN, Mild Distress Eye Exam: Bilateral Eye: Normal Inspection Ears: Normal External Exam Ear Exam: Bilateral Ear: Auricle Normal Nose: Normal Inspection, Normal Mucosa, No Blood Throat/Mouth: Normal Inspection, Normal Lips, No Airway Compromise Head: Atraumatic, Normocephalic Neck: Normal Inspection, Supple, Non-Tender, Full Range of Motion Respiratory/Chest: No Respiratory Distress, Lungs Clear, Normal Breath Sounds, No Accessory Muscle Use, Chest Non-Tender Cardiovascular: Normal Peripheral Pulses, Regular Rate, Rhythm, No Edema, No Gallop, No JVD, No Murmur, No Rub Peripheral Pulses: 1+: Radial (L) GI/Abdominal: Normal Bowel Sounds, No Organomegaly, Pelvis Stable, Tender ( epigastric) (Female) Exam: Deferred Rectal (Female) Exam: Deferred Back Exam: Normal Inspection, Full Range of Motion Extremities: Normal Inspection, Normal Range of Motion, Non-Tender, No Pedal Edema Neurological: Alert, Oriented, CN II-XII Intact, Normal Cognition, Normal Gait Psychiatric: Other (drug seeking [facility]) Skin Exam: Warm, Dry, Intact, Normal Color, No Rash Lymphatic: No Adenopathy Course - Vital Signs Text/Narrative:: 37 y.o.w.f with a H/O LESS (lower esophageal sphincter stenosis), H/O drug seeking behaviour, multiple visits in this ED, came with her SO to the ED for epigastric pain.Pt was seen yesterday for same. Please see the report from 2017. As per JOSEPH James, the pain she is presenting is not related to her LESS, he did no recommended any narcotics. Pt denied any other acute medical issues. BP 103/72 RR 18 Pulse Ox 100% Temp 36.8 PE: 37 y.o.w.f H/O LESS, Drug seeking behaviour, came to the ED for epigastic pain. Pt was seen for same yesterday, no Narc were given. Labs: Taken yesterday, all were nl Impression: H/O LESS, Drug seeking behaviour [place] offered: Reglan, the a GI cocktail if the nausea has subsided. Pt accepted the Reglan I.V, the asked to leave Pt left AMA without signing. She has an appointment tomorrow with GI. - Orders/Labs/Meds Orders: Active Orders 24 hr Category Date Time Status Sodium Chloride 0.9% [Normal Saline] 1,000 ml Med 09/03/17 11:30 Active IV ASDIRECTED Medication Orders Sodium Chloride (Normal Saline) 1,000 mls @ 125 mls/hr IV ASDIRECTED MARCOS Last Admin: 09/03/17 11:32 Dose: 125 mls/hr Meds: Medications Generic Name Dose Route Start Last Admin Trade Name Freq PRN Reason Stop Dose Admin Sodium Chloride 1,000 mls @ 125 mls/hr 09/03/17 11:30 09/03/17 11:32 Normal Saline IV 125 mls/hr ASDIRECTED MARCOS Administration Discontinued Medications Generic Name Dose Route Start Last Admin Trade Name Freq PRN Reason Stop Dose Admin Metoclopramide HCl 10 mg 09/03/17 11:24 09/03/17 11:32 Reglan IV 09/03/17 11:25 10 mg ONETIME STA Administration Departure - Departure Time of Disposition: 11:46 Disposition: Against Medical Advice 07 Condition: Good Clinical Impression: Drug-seeking behavior - Discharge Information Referrals: Riley Mayer MD [Primary Care Provider] - Forms: ED Department Discharge - My Orders Last 24 Hours: My Active Orders 09/03/17 11:30 Sodium Chloride 0.9% [Normal Saline] 1,000 ml IV ASDIRECTED - Assessment/Plan Last 24 Hours: My Active Orders 09/03/17 11:30 Sodium Chloride 0.9% [Normal Saline] 1,000 ml IV ASDIRECTED
[2017-09-03] MEDS ORDERED: Sodium Chloride 0.9% 1,000 ML IV SCH (11:30)
[2017-09-03 12:24] VITALS: BP 103/72
== END 2017-09-03 11:47 | disposition left against medical advice (07) ==
LOC: FB.ED 10:56
DX: Z59.0 Homelessness (principal); Z76.5 Malingerer [conscious simulation]; F17.210 Nicotine dependence, cigarettes, uncomplicated; Z88.0 Allergy status to penicillin; Z79.899 Other long term (current) drug therapy
CPT/HCPCS: 96374; 99283; J2765; J7040

== ENCOUNTER 2017-09-12 13:12 | Emergency (ER) | payer MEDICAID ==
[2017-09-12] MEDS ORDERED: HYDROmorphone 2 MG/ML SDV IVPUSH ONE (13:47)
[2017-09-12] MEDS ORDERED: HYDROmorphone 2 MG/ML SDV IM ONE (14:18)
[2017-09-12 16:52] VITALS: BP 120/67
--- NOTE | 2017-09-13 16:26 | ER ---
DATE SEEN: 09/12/2017 TIME SEEN: The patient was seen at 1400 hours. HISTORY OF PRESENT ILLNESS: The patient complains of severe mid epigastric abdominal discomfort. She has had this before. 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 I have read the notes from Dr. Lantigua and also notes with Dr. Olmos. I spoke with Dr. Olmos on multiple occasions in the past. She is known to have pain in her abdomen. Dr. Olmos did not feel this was secondary to her gastric bypass or lower esophageal sphincter stricture. She was seen by Dr. Olmos on 09/03/2017 and had LESS dilation and will be having three times a week stricture dilation. She has moderate pain. PHYSICAL EXAMINATION: VITAL SIGNS: Blood pressure 120/67, heart rate 98, respirations 18, oxygen saturation 98%, temperature is 36.5. I discussed with Charisse, the fact that she has had multiple visits and most of this is not felt to be gastrointestinal etiology, per Dr. Olmos, but I agree with her she has pain. Also, I noted that the chart has several annotations of a concern for potential chemical dependency and there is reluctance to consider any ongoing pain medications. She will get a shot of pain medicine to relieve her discomfort tonight. On exam, she has moderate discomfort in the epigastric area. It is difficult to know if this radiates from her esophagus, radiates from her the gastric bypass, or what is the etiology, but I do not feel it has to do with drug-seeking behavior. Whatever the case, I did give her a shot of dilaudid. The nurse was sure that I knew that she was thought to have drug-seeking behavior. One shot of Dilaudid given. She was then dismissed to follow up with her continuation of her esophageal dilation procedures. I discouraged her coming in the pain shots as she has done this evening. No p.o. medicines given to patient. DIAGNOSES: Nonspecific abdominal pain, etiology indeterminate. Multiple other diagnoses, see HPI above, with LESS (lower esophageal sphincter stricture) syndrome. Continue with progressive, three times a week, dilation of the esophagus. /[id number] DALY/SUSANNA MERLOSD
== END 2017-09-12 14:42 | disposition home or self-care (01) ==
LOC: FB.ED 13:12
DX: K22.2 Esophageal obstruction (principal); R10.13 Epigastric pain; F41.9 Anxiety disorder, unspecified; F32.9 Major depressive disorder, single episode, unspecified; F60.9 Personality disorder, unspecified
CPT/HCPCS: 96372; 99283; J1170

== ENCOUNTER 2017-09-14 15:46 | Emergency (ER) | payer MEDICAID ==
[2017-09-14] MEDS ORDERED: Lactated Ringers 1,000 ML IV SCH (16:30)
[2017-09-14] MEDS ORDERED: Dextrose 5%-Lactated Ringers 1,000 ML IV SCH (16:30)
[2017-09-14] MEDS ORDERED: diphenhydrAMINE 50 MG/ML SDV IVPUSH ONE (17:55)
[2017-09-14] MEDS ORDERED: Acetaminophen 1,000 MG in Premix Bag 1 BAG IV ONE (17:55)
[2017-09-14] MEDS ORDERED: Metoclopramide 10 MG/2 ML SDV IVPUSH ONE (17:56)
[2017-09-14 20:04] VITALS: BP 110/57
--- NOTE | 2017-09-18 15:05 | ER ---
DATE SEEN: 09/14/2017 TIME SEEN: The patient was seen at 1800 hours. HISTORY OF PRESENT ILLNESS: Charisse is well known to me. She has multiple medical problems, including GERD, status post gastric bypass, candy cane bypass revision, peptic ulcers, fistula, gastric irritation from the suture site documented by endoscopy, rib pain. Also was seen by Dr. Olmos, and he has noted repeatedly that her pain is not from the gastric bypass discomfort but coming from something else. The patient has the proclivity to come to the emergency room for shots and medication. The last time she was seen, I believe, was last night and had a shot of Dilaudid, went home, and pain resolved. She returns this evening for the same problem. She is in tears because of this. I told her last night that I would not repeat the Dilaudid, and the medication would not be Dilaudid but another medicine. It is strong feeling that she has drug-seeking behavior. CURRENT MEDICATIONS: 1. Klonopin. 2. Protonix. 3. Zofran. 4. Metoclopramide. 5. Carbonyl iron. 6. Vitamin C. 7. Vitamin B12. 8. Iron 100 Plus tablet. 9. Duloxetine. 10.Abilify. 11.Promethazine (Phenadoz). REVIEW OF SYSTEMS: Negative, except for her abdominal discomfort and weight loss. She is apparently going through successive esophageal dilation. She had esophageal dilation not too long ago. See previous notes dictated yesterday. She has anticipated [id number]-[id number]-[id number] esophageal dilation this coming week. She has lower esophageal sphincter stricture (LESS syndrome) and for this reason, the gastroenterologists are dilating. It is not felt that she has pain because of this. PHYSICAL EXAMINATION: HEENT: Without abnormality. Pharynx is semi-moist. NECK: No cervical adenopathy. LUNGS: Clear. ABDOMEN: Previous mild abdominal discomfort, not excessive. No rebound. Old scars noted in the abdomen. No CVA percussion tenderness. EXTREMITIES: Without edema. ASSESSMENT: 1. Abdominal pain, etiology indeterminate, nonspecific. 2. Dr. Olmos professes it is not from the gastric bypass surgery. PLAN: Treat with medicine, but not give narcotics tonight. She will receive Omnicef 1000 mg, Reglan 10 mg, and Benadryl 50 mg IV plus a liter of normal saline. After this, she went home. Pain decreased by 50%. She noted incomplete relief. I told her I would not provide narcotics for her. She will have to find an alternative to the medication she has. Perhaps, her physician could find that alternative that works optimal for her. Apparently, she used Zyprexa in the past and has not worked. I also told the patient that she would need to be seen in the Pain Clinic. Her doctor would do well to refer her to a Pain Clinic. /[id number] DALY/SUSANNA DASILVA
== END 2017-09-14 19:45 | disposition home or self-care (01) ==
LOC: FB.ED 15:46
DX: R10.9 Unspecified abdominal pain (principal); K21.9 Gastro-esophageal reflux disease without esophagitis; Z98.890 Other specified postprocedural states
CPT/HCPCS: 96361; 96374; 96375; 99283; J0131; J1200; J2765; J7042; J7120

== ENCOUNTER 2017-09-19 14:36 | Emergency (ER) | payer MEDICAID ==
[2017-09-19] MEDS ORDERED: Sodium Chloride 0.9% 1,000 ML IV ONE (15:15)
[2017-09-19] MEDS ORDERED: Metoclopramide 10 MG/2 ML SDV IM ONE (15:17)
[2017-09-19] MEDS ORDERED: Ondansetron 4 MG/2 ML SDV IVPUSH ONE (15:17)
--- NOTE | 2017-09-19 15:26 | EDM.PDOC ---
ED HPI GENERAL MEDICAL PROBLEM - General Chief Complaint: Abdominal Pain Stated Complaint: VOMITING PAIN Time Seen by Provider: 09/19/17 14:44 Source of Information: Reports: Patient, Family History Limitations: Reports: No Limitations - History of Present Illness INITIAL COMMENTS - FREE TEXT/NARRATIVE: 37 y.o.w.f came to the ed with her daughter after she had a pic line placed in her left arm for TPN, today and felt nauseated, vomiting as well. Pt came to the ed for nausea meds. Pt saw her GI specialist who stated to her, her lower esophagus is entirely closed/constricted. As per patient, she will get her gastric bypass reversed. No other acute medical issues. BP 104/70 RR 18 Pulse ox 99% Temp 36.8 Pulse 85. Onset Date: 09/19/17 Onset Time: 08:00 Duration: Intermittent Location: Reports: Abdomen Quality: Reports: Same as Previous Episode, Other (nausea) Severity: Mild Improves with: Reports: Rest Worsens with: Reports: Movement Context: Reports: Other (Nausea after Pick ) Associated Symptoms: Reports: Nausea/Vomiting Upper abdomen Pain Score (Numeric/FACES): 7 - Related Data Allergies Allergy/AdvReac Type Severity Reaction Status Date / Time Penicillins Allergy Severe Difficulty Verified 09/19/17 14:46 Breathing Home Meds: Home Meds DULoxetine HCl [Cymbalta] 60 mg PO BID 02/09/16 [History] ARIPiprazole [Abilify] 5 mg PO BEDTIME 04/06/17 [History] Pantoprazole Sodium [Protonix] 40 mg PO DAILY 04/06/17 [History] Metoclopramide HCl 10 mg PO QIDACANDBED 07/10/17 [History] Ondansetron [Zofran ODT] 4 mg PO Q6H PRN #20 tab.dis 09/02/17 [Rx] ClonazePAM [KlonoPIN] 0.5 mg PO DAILY PRN 09/14/17 [History] Ondansetron [Zofran ODT] 4 mg PO Q6H PRN #20 tab.dis 09/19/17 [Rx] Past Medical History - Past Health History Medical/Surgical History: Denies Medical/Surgical History HEENT History: Reports: None Gastrointestinal History: Reports: Cholelithiasis, GERD, PUD, Other (See Below) Other Gastrointestinal History: candy cane rue syndrome, false passage of bowel , strictures of stomach Genitourinary History: Reports: UTI, Recurrent 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 LEVELER History: Reports: 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, Musculoskeletal History: Reports: Fracture, Other (See Below) Other Musculoskeletal History: fx R wrist, fx L foot Psychiatric History: Reports: Anxiety, Depression, Panic Attack Endocrine/Metabolic History: Reports: Obesity/BMI 30+ Hematologic History: Reports: Anemia, B12 Deficiency, Iron Deficiency - Infectious Disease History Infectious Disease History: Reports: Chicken Pox - Past Surgical History Head Surgeries/Procedures: Reports: None HEENT Surgical History: Reports: Adenoidectomy, Oral Surgery, Tonsillectomy, Other (See Below) Other HEENT Surgeries/Procedures: 1995 GI Surgical History: Reports: Appendectomy, Bariatric Procedure, Cholecystectomy , EGD Other GI Surgeries/Procedures: attempted to stretch stomach on 09/17/2017 without results Female Surgical History: Reports: Hysterectomy, Oophorectomy, Salpingo- Oophorectomy Musculoskeletal Surgical History: Reports: None Oncologic Surgical History: Reports: Other (See Below) Social & Family History - Family History Family Medical History: Noncontributory - Tobacco Use Smoking Status *Q: Former Smoker Years of Tobacco use: 20 Packs/Tins Daily: 0.5 Used Tobacco, but Quit: Yes Month/Year Tobacco Last Used: 2017 Second Hand Smoke Exposure: No - Caffeine Use Caffeine Use: Reports: Coffee, Tea Other Caffeine Use: 6 ounces - Alcohol Use Days Per Week of Alcohol Use: 0 - Recreational Drug Use Recreational Drug Use: No Drug Use in Last 12 Months: Yes ED ROS GENERAL - Review of Systems Review Of Systems: See Below Constitutional: Reports: No Symptoms HEENT: Reports: No Symptoms Respiratory: Reports: No Symptoms Cardiovascular: Reports: No Symptoms Endocrine: Reports: No Symptoms GI/Abdominal: Reports: Nausea, Vomiting : Reports: No Symptoms Musculoskeletal: Reports: No Symptoms Skin: Reports: No Symptoms Neurological: Reports: No Symptoms Psychiatric: Reports: No Symptoms Hematologic/Lymphatic: Reports: No Symptoms Immunologic: Reports: No Symptoms ED EXAM, GI/ABD - Physical Exam Exam: See Below Exam Limited By: No Limitations General Appearance: Alert, WD/WN, Mild Distress, Thin Eyes: Bilateral: Normal Appearance Ears: Normal External Exam, Normal Canal Nose: Normal Inspection, Normal Mucosa Throat/Mouth: Normal Lips, Normal Gums, Normal Voice, No Airway Compromise, Other (dry mucosal membrane) Head: Atraumatic, Normocephalic Neck: Normal Inspection, Supple, Non-Tender, Full Range of Motion Respiratory/Chest: No Respiratory Distress, Lungs Clear, Normal Breath Sounds Cardiovascular: Normal Peripheral Pulses, Regular Rate, Rhythm, No Edema, No Gallop, No Murmur, No Rub GI/Abdominal Exam: Normal Bowel Sounds, No Organomegaly, No Abnormal Bruit, No Mass, Pelvis Stable, Tender (epigastric) (Female) Exam: Deferred Rectal (Female) Exam: Deferred Back Exam: Normal Inspection, Full Range of Motion Extremities: Normal Inspection, Normal Range of Motion, Non-Tender, No Pedal Edema, Normal Capillary Refill Neurological: Alert, Oriented, CN II-XII Intact, Normal Cognition, Normal Gait, Normal Reflexes, No Motor/Sensory Deficits Psychiatric: Normal Affect, Normal Mood Skin Exam: Warm, Dry, Intact, No Rash, Pallor Lymphatic: No Adenopathy Course - Vital Signs Text/Narrative:: 37 y.o.w.f came to the ed with her daughter after she had a pic line placed in her left arm for TPN, today and felt nauseated, vomiting as well. Pt came to the ed for nausea meds. Pt saw her GI specialist who stated to her, her lower esophagus is entirely closed/constricted. As per patient, she will get her gastric bypass reversed. No other acute medical issues. BP 104/70 RR 18 Pulse ox 99% Temp 36.8 Pulse 85. PE: Thin 37 y.o.w.f with N/V after PIC line placement Labs: Refused Impression: S/P Pick line placement (today) , Nausea, Dehydration, H/O LESS. Cachexia. Tx: Reglan, NS i . v NS, Reexam: Improved, pt requested the NS to be removed after 500 cc were infused. Plan: D/C with instructions Last Recorded V/S: Last Vital Signs Temp 36.7 C 09/19/17 14:44 Pulse 85 09/19/17 14:44 Resp 18 09/19/17 15:59 BP 98/81 09/19/17 15:59 Pulse Ox 100 09/19/17 15:59 - Orders/Labs/Meds Meds: Medications Discontinued Medications Generic Name Dose Route Start Last Admin Trade Name Freq PRN Reason Stop Dose Admin Heparin Sodium (Porcine) 50 unit 09/19/17 15:55 09/19/17 16:00 Heparin Lock Flush 10 Units/Ml FLUSH 50 unit ASDIRECTED PRN Administration Keep Vein Open Heparin Sodium (Porcine) Confirm 09/19/17 15:58 Heparin Lock Flush 10 Units/Ml Administered 09/19/17 15:59 Dose 50 unit FLUSH .STK-MED ONE Sodium Chloride 1,000 mls @ 999 mls/hr 09/19/17 15:15 09/19/17 15:36 Normal Saline IV 09/19/17 16:15 999 mls/hr .BOLUS ONE Administration Metoclopramide HCl 10 mg 09/19/17 15:17 09/19/17 15:45 Reglan IM 09/19/17 15:18 Not Given ONETIME ONE Metoclopramide HCl 10 mg 09/19/17 15:42 09/19/17 15:44 Reglan IV 09/19/17 15:43 10 mg ONETIME STA Administration Ondansetron HCl 8 mg 09/19/17 15:17 09/19/17 15:36 Zofran IVPUSH 09/19/17 15:18 8 mg ONETIME ONE Administration Departure - Departure Time of Disposition: 15:55 Disposition: Home, Self-Care 01 Condition: Good Clinical Impression: Abnormal lower esophageal sphincter relaxation, Odynophagia, Dehydration - Discharge Information Prescriptions: Ondansetron [Zofran ODT] 4 mg PO Q6H PRN #20 tab.dis PRN Reason: Nausea Instructions: Nausea and Vomiting, Adult, [id number] Referrals: Riley Mayer MD [Primary Care Provider] - Forms: ED Department Discharge Additional Instructions: Please advance fluids as tolerated, Zofran for nausea, please follow up with your GI specialist/surgeon as tolerated, please come back if your symptoms get worse acutely
[2017-09-19] MEDS ORDERED: Metoclopramide 10 MG/2 ML SDV IV STA (15:42)
[2017-09-19] MEDS ORDERED: Heparin Sodium 10 Units/ML 5 ML Syringe FLUSH PRN (15:55)
[2017-09-19] MEDS ORDERED: Heparin Sodium 10 Units/ML 5 ML Syringe FLUSH ONE (15:58)
[2017-09-19 16:27] VITALS: BP 98/81
== END 2017-09-19 16:03 | disposition home or self-care (01) ==
LOC: FB.ED 14:36
DX: E86.0 Dehydration (principal); K21.9 Gastro-esophageal reflux disease without esophagitis; R13.10 Dysphagia, unspecified; R64 Cachexia; Z45.2 Encounter for adjustment and management of vascular access device; Z88.0 Allergy status to penicillin; Z79.899 Other long term (current) drug therapy; Z87.891 Personal history of nicotine dependence
CPT/HCPCS: 96374; 96375; 99283; J1642; J2405; J2765; J7040

== ENCOUNTER 2017-09-23 19:30 | Emergency (ER) | payer MEDICAID ==
[2017-09-23] MEDS ORDERED: Ketorolac 60 MG/2 ML SDV IM ONE (21:26)
--- NOTE | 2017-09-23 22:30 | EDM.PDOC ---
ED HPI GENERAL MEDICAL PROBLEM - General Chief Complaint: Upper Extremity Injury/Pain Stated Complaint: PAIN Time Seen by Provider: 09/23/17 19:30 Source of Information: Reports: Patient, Family History Limitations: Reports: No Limitations - History of Present Illness INITIAL COMMENTS - FREE TEXT/NARRATIVE: 37 y.o.w.f came to the ed deu to left shoulder pain, a few weeks after a PICC line was placed for TPN nutrition. Pt was seen in this ED and the [place] ED multiple times. on an US of her left shoulder was neg for DVT. Pt has a H/O a drug seeking behaviour. No N/V/D no Dizziness. The PICC line flushes well and Blood is returning as well. No other acute medical [place]. BP 92/64 RR 18 Pulse ox 98 Temp 36.8 Pulse 68 Onset Date: 09/23/17 Onset Time: 19:00 Duration: Minutes:, Constant, Intermittent Location: Reports: Upper Extremity, Left Quality: Reports: Burning, Dull, Pressure, Same as Previous Episode Severity: Moderate Improves with: Reports: Rest Worsens with: Reports: Movement Context: Reports: Other (Pic line placed left arm a few weeks ago, now pain) Associated Symptoms: Reports: No Other Symptoms Left arm Pain Score (Numeric/FACES): 7 - Related Data Allergies Allergy/AdvReac Type Severity Reaction Status Date / Time Penicillins Allergy Severe Difficulty Verified 09/23/17 20:33 Breathing Home Meds: Home Meds DULoxetine HCl [Cymbalta] 60 mg PO BID 02/09/16 [History] ARIPiprazole [Abilify] 5 mg PO BEDTIME 04/06/17 [History] Pantoprazole Sodium [Protonix] 40 mg PO DAILY 04/06/17 [History] Metoclopramide HCl 10 mg PO QIDACANDBED 07/10/17 [History] Ondansetron [Zofran ODT] 4 mg PO Q6H PRN #20 tab.dis 09/02/17 [Rx] ClonazePAM [KlonoPIN] 0.5 mg PO DAILY PRN 09/14/17 [History] Ondansetron [Zofran ODT] 4 mg PO Q6H PRN #20 tab.dis 09/19/17 [Rx] Past Medical History - Past Health History Medical/Surgical History: Denies Medical/Surgical History HEENT History: Reports: None Gastrointestinal History: Reports: Cholelithiasis, GERD, PUD, Other (See Below) Other Gastrointestinal History: candy cane rue syndrome, false passage of bowel , strictures of stomach Genitourinary History: Reports: UTI, 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 History: Reports: 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, Musculoskeletal History: Reports: Fracture, Other (See Below) Other Musculoskeletal History: fx R wrist, fx L foot Psychiatric History: Reports: Anxiety, Depression, Panic Attack Endocrine/Metabolic History: Reports: Obesity/BMI 30+ Hematologic History: Reports: Anemia, B12 Deficiency, Iron Deficiency - Infectious Disease History Infectious Disease History: Reports: Chicken Pox - Past Surgical History Head Surgeries/Procedures: Reports: None HEENT Surgical History: Reports: Adenoidectomy, Oral Surgery, Tonsillectomy, Other (See Below) Other HEENT Surgeries/Procedures: 1995 GI Surgical History: Reports: Appendectomy, Bariatric Procedure, Cholecystectomy , EGD Other GI Surgeries/Procedures: attempted to stretch stomach on 09/17/2017 without results Female Surgical History: Reports: Hysterectomy, Oophorectomy, Salpingo- Oophorectomy Musculoskeletal Surgical History: Reports: None Oncologic Surgical History: Reports: Other (See Below) Social & Family History - Family History Family Medical History: Noncontributory - Tobacco Use Smoking Status *Q: Former Smoker Years of Tobacco use: 20 Packs/Tins Daily: 0.5 Used Tobacco, but Quit: Yes Month/Year Tobacco Last Used: 2017 Second Hand Smoke Exposure: No - Caffeine Use Caffeine Use: Reports: Coffee, Tea Other Caffeine Use: 6 ounces - Alcohol Use Days Per Week of Alcohol Use: 0 - Recreational Drug Use Recreational Drug Use: No Drug Use in Last 12 Months: Yes Review of Systems - Review of Systems Review Of Systems: See Below Constitutional: Reports: No Symptoms Eyes: Reports: No Symptoms Ears: Reports: No Symptoms Nose: Reports: No Symptoms Mouth/Throat: Reports: No Symptoms Respiratory: Reports: No Symptoms Cardiovascular: Reports: No Symptoms GI/Abdominal: Reports: No Symptoms Genitourinary: Reports: No Symptoms Musculoskeletal: Reports: Shoulder Pain (left) Skin: Reports: No Symptoms Neurological: Reports: No Symptoms Psychiatric: Reports: No Symptoms ED EXAM, GENERAL - Physical Exam Exam: See Below Exam Limited By: No Limitations General Appearance: Alert, WD/WN, Mild Distress Eye Exam: Bilateral Eye: Normal Inspection Ears: Normal External Exam Ear Exam: Bilateral Ear: Auricle Normal Nose: Normal Inspection, Normal Mucosa Throat/Mouth: Normal Inspection, Normal Lips Head: Atraumatic, Normocephalic Neck: Normal Inspection, Supple, Non-Tender, Full Range of Motion Respiratory/Chest: No Respiratory Distress, Lungs Clear, Normal Breath Sounds Cardiovascular: Normal Peripheral Pulses, Regular Rate, Rhythm, No Edema, No Gallop Peripheral Pulses: 1+: Radial (L) GI/Abdominal: Normal Bowel Sounds, Soft, Non-Tender (Female) Exam: Deferred Rectal (Female) Exam: Deferred Back Exam: Normal Inspection, Full Range of Motion Extremities: Limited Range of Motion (left arm due to pain) Neurological: Alert, Oriented, CN II-XII Intact, Normal Cognition, Normal Gait Psychiatric: Normal Affect, Normal Mood Skin Exam: Warm, Dry, Intact, Normal Color, No Rash Lymphatic: No Adenopathy Course - Vital Signs Text/Narrative:: 37 y.o.w.f came to the ed deu to left shoulder pain, a few weeks after a PICC line was placed for TPN nutrition. Pt was seen in this ED and the [place] ED multiple times. on an US of her left shoulder was neg for DVT. Pt has a H/O a drug seeking behaviour. No N/V/D no Dizziness. The PICC line flushes well and Blood is returning as well. No other acute medical [place]. BP 92/64 RR 18 Pulse ox 98 Temp 36.8 Pulse 68 PE: 37 y.o. thin f with left shoulder pain afte picc line placement, no redness, no swelling Impression: Left shoulder pain after PICC line placement Tx: Toradol 60 mg I.M U/S not available at [facility] 10.30 pm Consultation: Dr. Boswell. Hospitalist: US of left upper arm, Lidocain patch 10.41 pm: consultation: Dr. Carrasco [facility]: Accepte dthe pt for Left upper ext. US Reexam: Some improvement Plan: Tranfer to [facility] PC: Last Recorded V/S: Last Vital Signs Temp 36.4 C 09/23/17 22:53 Pulse 83 09/23/17 22:53 Resp 18 09/23/17 22:53 BP 94/83 09/23/17 22:53 Pulse Ox 99 09/23/17 22:53 - Orders/Labs/Meds Meds: Medications Discontinued Medications Generic Name Dose Route Start Last Admin Trade Name Ricarda PRN Reason Stop Dose Admin Ketorolac Tromethamine 60 mg 09/23/17 21:26 09/23/17 21:41 Toradol IM 09/23/17 21:27 60 mg ONETIME ONE Administration Departure - Departure Time of Disposition: 23:02 Disposition: DC/Tfer to Acute Hospital 02 Condition: Good Clinical Impression: Left shoulder pain Qualifiers: Chronicity: unspecified Qualified Code(s): M25.512 - Pain in left shoulder - Discharge Information Referrals: Riley Mayer MD [Primary Care Provider] - Forms: ED Department Discharge Additional Instructions: Please go straight to the ED [facility] for an US left shoulder to R/O DVT
[2017-09-23 22:57] VITALS: BP 94/83
== END 2017-09-23 23:10 ==
LOC: FB.ED 19:30
DX: T82.848A Pain due to vascular prosthetic devices, implants and grafts, initial encounter (principal); M25.512 Pain in left shoulder; Z87.891 Personal history of nicotine dependence; K21.9 Gastro-esophageal reflux disease without esophagitis; F41.9 Anxiety disorder, unspecified; F32.9 Major depressive disorder, single episode, unspecified; Z79.899 Other long term (current) drug therapy; Z88.0 Allergy status to penicillin
CPT/HCPCS: 96372; 99284; J1885

== ENCOUNTER 2017-09-24 16:16 | Emergency (ER) | payer MEDICAID | END 2017-09-24 21:30 | disposition left against medical advice (07) | LOC: FB.ED 16:16 | DX: Z53.21 Procedure and treatment not carried out due to patient leaving prior to being seen by health care provider (principal) ==

== ENCOUNTER 2017-10-11 22:32 | Emergency (ER) | payer MEDICAID ==
[2017-10-11 23:03] VITALS: BP 116/68
--- NOTE | 2017-10-12 02:32 | ER ---
DATE SEEN: 10/11/2017 REASON FOR VISIT: Abdominal pain. HISTORY OF PRESENT ILLNESS: This is a 37-year-old female with pain in the abdomen for the last week. It has progressively gotten worse after gastric bypass. Pain is generalized. Percocet is not helping. REVIEW OF SYSTEMS: No constipation, nausea, or vomiting. No chest pain or shortness of breath. No urinary symptoms. No fever. ALLERGIES: Penicillin. PHYSICAL EXAMINATION: VITAL SIGNS: Temperature 99.2, pulse 109, and blood pressure is normal. MENTAL STATUS: Answers questions well. Normal affect. ENT: Negative. CHEST: Clear. ABDOMEN: Nondistended, exquisitely tender, generalized with no rebound or rigidity. Bowel sounds are present. No hepatosplenomegaly. LABORATORY DATA: Lactic acid 1.2, CRP is 19.6, and amylase is 41. X-ray of the abdomen and pelvis was nonspecific. IMPRESSION: Abdominal pain status post gastric bypass. PLAN: I advised her to call the surgeon tomorrow and continue Percocet as previously prescribed. Return to the ED with any worsening symptoms. Time seen was 11:00 p.m. /[id number] GEOFF/SUSANNA
== END 2017-10-11 23:54 | disposition home or self-care (01) ==
LOC: FB.ED 22:32
DX: R10.9 Unspecified abdominal pain (principal); Z98.84 Bariatric surgery status
CPT/HCPCS: 36415; 74019; 81001; 82150; 83605; 86140; 99284

== ENCOUNTER 2019-01-24 21:02 | Emergency (ER) | payer MEDICAID, OTHER ==
[2019-01-24] MEDS ORDERED: Ketorolac 60 MG/2 ML SDV IM ONE (21:28)
--- NOTE | 2019-01-24 21:33 | EDM.PDOC ---
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 L shoulder Pain Score (Numeric/FACES): 8 - Related Data Allergies Allergy/AdvReac Type Severity Reaction Status Date / Time Penicillins Allergy Severe Difficulty Verified 01/24/19 21:18 Breathing gabapentin Allergy Hives Verified 01/24/19 21:18 Home Meds: Home Meds Ibuprofen 600 mg PO Q6H PRN 01/24/19 [History] Past Medical History - Past Health History Medical/Surgical History: Denies Medical/Surgical History HEENT History: Reports: None Gastrointestinal History: Reports: Cholelithiasis, GERD, PUD, Other (See Below) Other Gastrointestinal History: candy cane rue syndrome, false passage of bowel , strictures of stomach, Genitourinary History: Reports: UTI, Recurrent SITE HEAD History: Reports: 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, Other SITE HEAD History: Musculoskeletal History: Reports: Fracture, Other (See Below) Other Musculoskeletal History: fx R wrist, fx L foot Psychiatric History: Reports: Anxiety, Depression, Panic Attack Endocrine/Metabolic History: Reports: Obesity/BMI 30+ Hematologic History: Reports: Anemia, B12 Deficiency, Iron Deficiency - Infectious Disease History Infectious Disease History: Reports: Chicken Pox - Past Surgical History Head Surgeries/Procedures: Reports: None HEENT Surgical History: Reports: Adenoidectomy, Oral Surgery, Tonsillectomy, Other (See Below) Other HEENT Surgeries/Procedures: 1995 GI Surgical History: Reports: Appendectomy, Bariatric Procedure, Cholecystectomy , EGD Other GI Surgeries/Procedures: attempted to stretch stomach on 09/17/2017 without results, gastric bypass reversal 10/12 Female Surgical History: Reports: Hysterectomy, Oophorectomy, Salpingo- Oophorectomy Musculoskeletal Surgical History: Reports: None Oncologic Surgical History: Reports: Other (See Below) Social & Family History - Family History Family Medical History: Noncontributory - Tobacco Use Smoking Status *Q: Current Every Day Smoker Years of Tobacco use: 20 Packs/Tins Daily: 0.5 - Caffeine Use Caffeine Use: Reports: Energy Drinks, Soda Other Caffeine Use: 6 ounces Caffeine Use Comment: unable to take anything by mouth as of this time. - Recreational Drug Use Recreational Drug Use: No Review of Systems - Review of Systems Review Of Systems: See Below Constitutional: Reports: No Symptoms Ears: Reports: No Symptoms Nose: Reports: No Symptoms Mouth/Throat: Reports: No Symptoms Respiratory: Reports: No Symptoms Cardiovascular: Reports: No Symptoms Genitourinary: Reports: No Symptoms Musculoskeletal: Reports: Other (left shoulder pain) Neurological: Reports: No Symptoms ED EXAM, GENERAL - Physical Exam Exam: See Below Exam Limited By: No Limitations General Appearance: No Apparent Distress Eye Exam: Bilateral Eye: PERRL Ears: Normal External Exam, Normal Canal Nose: Normal Inspection, Normal Mucosa, No Blood Throat/Mouth: Normal Inspection, Normal Lips, Normal Teeth Head: Atraumatic, Normocephalic Neck: Normal Inspection, Supple, Non-Tender Respiratory/Chest: No Respiratory Distress, Lungs Clear Cardiovascular: Normal Peripheral Pulses, Regular Rate, Rhythm GI/Abdominal: Normal Bowel Sounds, Soft, Non-Tender (Female) Exam: Normal External Exam, Normal Speculum Exam Extremities: Normal Inspection, Limited Range of Motion (tenderness left shoulder), Other Neurological: Alert, Oriented, CN II-XII Intact, Normal Cognition Course - Vital Signs Text/Narrative:: xray left shoulder-no fracture or dislocation toradol 60 mg IM x1 Last Recorded V/S: Last Vital Signs Temp 36.7 C 01/24/19 21:03 Pulse 83 01/24/19 21:03 Resp 18 01/24/19 21:03 BP 89/67 L 01/24/19 21:03 Pulse Ox 100 01/24/19 21:03 - Orders/Labs/Meds Orders: Active Orders 24 hr Category Date Time Status Shoulder Comp Lt [CR] Stat Exams 01/24/19 21:28 Taken Meds: Medications Discontinued Medications Generic Name Dose Route Start Last Admin Trade Name Freq PRN Reason Stop Dose Admin Ketorolac Tromethamine 60 mg 01/24/19 21:28 01/24/19 21:32 Toradol IM 01/24/19 21:29 60 mg ONETIME ONE Administration Departure - Departure Time of Disposition: 21:55 Disposition: DC/Tfer to [facility] 21 Condition: Good Clinical Impression: Left shoulder strain - Discharge Information Instructions: Shoulder Sprain Referrals: PCP,None [Primary Care Provider] - Forms: ED Department Discharge Additional Instructions: please read discharge instructions on sprain/strain apply ice take ibuprofen 800 mg with tylenol 1000 mg every 8 hours as needed for pain follow up as needed - My Orders Last 24 Hours: My Active Orders 01/24/19 21:28 Shoulder Comp Lt [CR] Stat - Assessment/Plan Last 24 Hours: My Active Orders 01/24/19 21:28 Shoulder Comp Lt [CR] Stat
[2019-01-24 23:45] VITALS: BP 93/52
--- NOTE | 2019-01-28 09:45 | CR ---
INDICATION: Left shoulder pain after a fall in the shower. LEFT SHOULDER: Three views of the left shoulder were obtained, 01/24/19 - no comparisons. A fracture, dislocation, or other definite bone or joint abnormality was not identified. Adjacent ribs were intact. MTDD
== END 2019-01-24 22:02 ==
LOC: FB.ED 21:02
DX: S46.912A Strain of unspecified muscle, fascia and tendon at shoulder and upper arm level, left arm, initial encounter (principal); K21.9 Gastro-esophageal reflux disease without esophagitis; F41.9 Anxiety disorder, unspecified; F32.9 Major depressive disorder, single episode, unspecified; F17.210 Nicotine dependence, cigarettes, uncomplicated; Z88.0 Allergy status to penicillin; Z88.8 Allergy status to other drugs, medicaments and biological substances; X58.XXXA Exposure to other specified factors, initial encounter
CPT/HCPCS: 73030; 96372; 99283; J1885